=== PATIENT | female | born 1980 | race Caucasian/White ===

== ENCOUNTER → 2016-03-15 | Outpatient (CLI) | payer OTHER ==
[2016-03-15 10:35] LABS: CH 29.8; CHCM 32.6; HCT 38.7 % (34.0-46.0); HGB 12.4 gm/dL (11.4-16.0); MCH 29.6 pg (25.0-35.0); MCHC 32.1 g/dL (31.0-37.0); Mean Platelet Volume 8.8; RDW 12.9 % (11.5-15.5); WBC 8.6 k/uL (3.8-10.6)
[2016-03-15 12:09] LABS: Anion Gap 11 mmol/L; Blood Urea Nitrogen 12 mg/dL (7-17); Carbon Dioxide 27 mmol/L (22-30); Chloride 102 mmol/L (98-107); Lithium 0.5 mmol/L; Non-African American GFR(MDRD) >60 (>60 ml/min/1.73 sqM); Potassium 4.6 mmol/L (3.5-5.1); Sodium 140 mmol/L (137-145)
== END | disposition home or self-care (01) ==
LOC: LABWHC1 09:38
PROVIDERS: ATTEND Psychiatry & Neurology Psychiatry
DX: F31.9 Bipolar disorder, unspecified (principal)
CPT/HCPCS: 36415; 80051; 80178; 82565; 84443; 84520; 85027

== ENCOUNTER 2016-05-27 14:58 | Emergency (ER) | payer OTHER ==
[2016-05-27 15:03] VITALS: RESP 16
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
[2016-05-27] MEDS ORDERED: HYDROcodone/APAP 5-325MG 1 EACH TAB PO STA (16:02)
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
--- NOTE | 2016-05-27 16:34 | XR ---
EXAMINATION TYPE: XR hand complete LT DATE OF EXAM: 05/27/2016 4:24 PM COMPARISON: NONE HISTORY: Pain TECHNIQUE: 3 views FINDINGS: I see no fracture nor dislocation. Metacarpals are intact. Joint spaces are normal. IMPRESSION: Negative left hand exam.
--- NOTE | 2016-05-27 16:35 | XR ---
EXAMINATION TYPE: XR wrist complete LT DATE OF EXAM: 05/27/2016 4:24 PM COMPARISON: NONE HISTORY: Wrist pain TECHNIQUE: 3 views FINDINGS: I see no fracture nor dislocation. Joint spaces are normal. There are no pathologic calcifi cations. IMPRESSION: Negative left wrist exam.
[2016-05-27 17:09] VITALS: BP 129/85; PULSE 99; TEMP 990
== END 2016-05-27 17:07 | disposition home or self-care (01) ==
LOC: EC 14:58
DX: S60.212A Contusion of left wrist, initial encounter (principal); M54.2 Cervicalgia; V89.2XXA Person injured in unspecified motor-vehicle accident, traffic, initial encounter; G40.909 Epilepsy, unspecified, not intractable, without status epilepticus; I34.1 Nonrheumatic mitral (valve) prolapse; F32.9 Major depressive disorder, single episode, unspecified; F41.9 Anxiety disorder, unspecified; F17.210 Nicotine dependence, cigarettes, uncomplicated; Z88.8 Allergy status to other drugs, medicaments and biological substances; Z79.899 Other long term (current) drug therapy
CPT/HCPCS: 72125; 99285

== ENCOUNTER 2016-05-30 16:17 | Emergency (ER) | payer OTHER ==
[2016-05-30 17:09] VITALS: BP 110/68; PULSE 106; RESP 18; TEMP 99.8
[2016-05-30] MEDS ORDERED: ORPHENADRINE 30 MG/ML 2 ML VIAL IM STA (17:47)
[2016-05-30] MEDS ORDERED: KETOROLAC 60 MG/2 ML VIAL IM STA (17:47)
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
== END 2016-05-30 18:04 | disposition home or self-care (01) ==
LOC: EC 16:17
DX: S16.1XXD Strain of muscle, fascia and tendon at neck level, subsequent encounter (principal); F17.200 Nicotine dependence, unspecified, uncomplicated; F41.9 Anxiety disorder, unspecified; F32.9 Major depressive disorder, single episode, unspecified; Z79.899 Other long term (current) drug therapy; Z88.6 Allergy status to analgesic agent; Z88.8 Allergy status to other drugs, medicaments and biological substances; M79.601 Pain in right arm; V89.2XXD Person injured in unspecified motor-vehicle accident, traffic, subsequent encounter
CPT/HCPCS: 99283; 96372 ×2; J2360; J1885

== ENCOUNTER → 2016-06-06 | Outpatient (CLI) | payer OTHER ==
[2016-06-06 11:56] LABS: Hemoglobin A1C 4.8 % (4.2-6.1)
[2016-06-06 13:50] LABS: Lithium 0.6 mmol/L; Non-African American GFR(MDRD) >60 (>60 ml/min/1.73 sqM)
== END | disposition home or self-care (01) ==
LOC: LABWHC1 10:22
PROVIDERS: ATTEND Psychiatry & Neurology Psychiatry
DX: F33.2 Major depressive disorder, recurrent severe without psychotic features (principal)
CPT/HCPCS: 36415; 80178; 82565; 83036; 84443

== ENCOUNTER 2016-06-13 16:09 | Emergency (ER) | payer OTHER ==
[2016-06-13 16:43] VITALS: BP 118/69; PULSE 100; RESP 18; TEMP 98.7
[2016-06-13] MEDS ORDERED: ORPHENADRINE 30 MG/ML 2 ML VIAL IM STA (17:03)
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
== END 2016-06-13 17:13 | disposition home or self-care (01) ==
LOC: EC 16:09
DX: S16.1XXD Strain of muscle, fascia and tendon at neck level, subsequent encounter (principal); M25.511 Pain in right shoulder; G40.909 Epilepsy, unspecified, not intractable, without status epilepticus; F32.9 Major depressive disorder, single episode, unspecified; F41.9 Anxiety disorder, unspecified; F17.210 Nicotine dependence, cigarettes, uncomplicated; Z79.899 Other long term (current) drug therapy; Z88.6 Allergy status to analgesic agent; Z88.8 Allergy status to other drugs, medicaments and biological substances; V89.2XXD Person injured in unspecified motor-vehicle accident, traffic, subsequent encounter
CPT/HCPCS: 99283; 96372; J2360

== ENCOUNTER 2016-07-06 20:17 | Emergency (ER) | payer OTHER ==
[~2016-07-06 20:17] MED LIST: MAGNESIUM CITRATE 296 ML BOTTLE ONE
[2016-07-06] MEDS ORDERED: KETOROLAC 30 MG/ML 1 ML VIAL IVP STA (21:54)
[2016-07-06] MEDS ORDERED: ONDANSETRON 4 MG/2 ML VIAL IVP STA (21:54)
[2016-07-06] MEDS ORDERED: SODIUM CHLORIDE 0.9% 1,000 ML IV STA (21:54)
[2016-07-06 22:36] LABS: Basophils % (A) 1 %; CH 29.3; CHCM 33.3; Eosinophils # (A) 0.4 k/uL (0-0.7); Eosinophils % (A) 6 %; HCT 37.7 % (34.0-46.0); HDW 2.66; HGB 12.6 gm/dL (11.4-16.0); Luc # (Auto) 0.15; Luc % (Auto) 2; Lymphocytes # (A) 1.9 k/uL (1.0-4.8); Lymphocytes % (A) 29 %; MCH 29.6 pg (25.0-35.0); MCHC 33.5 g/dL (31.0-37.0); MCV 88.4 fL (80.0-100.0); Mean Platelet Volume 8.8; Monocytes # (A) 0.4 k/uL (0-1.0); Monocytes % (A) 6 %; Neutrophils # (A) 3.8 k/uL (1.3-7.7); Neutrophils % (A) 57 %; RBC 4.26 m/uL (3.80-5.40); RDW 14.1 % (11.5-15.5); WBC 6.7 k/uL (3.8-10.6); WBC (Perox) 6.76
[2016-07-06 22:48] LABS: ALT 30 U/L (9-52); AST 30 U/L (14-36); Alkaline Phosphatase 66 U/L (38-126); Amylase 72 U/L (30-110); Anion Gap 13 mmol/L; Blood Urea Nitrogen 10 mg/dL (7-17); Calcium 8.9 mg/dL (8.4-10.2); Carbon Dioxide 25 mmol/L (22-30); Chloride 103 mmol/L (98-107); Glucose 77 mg/dL (74-99); Non-African American GFR(MDRD) 50 (>60 ml/min/1.73 sqM); Potassium 3.6 mmol/L (3.5-5.1); Sodium 141 mmol/L (137-145); Total Bilirubin 0.5 mg/dL (0.2-1.3); Total Protein 7.8 g/dL (6.3-8.2)
--- NOTE | 2016-07-06 22:51 | XR ---
EXAM: XR Abdomen, 1 View CLINICAL HISTORY: Reason: abdominal pain TECHNIQUE: Frontal supine view of the abdomen/pelvis. COMPARISON: 08/07/15, 08/05/15 plain films. FINDINGS: Intraperitoneal space: No free air is identified. Gastrointestinal tract: The stomach is now more distended, containing air fluid and debris within. No grossly dilated small bowel loops are seen. There is again a moderate to large amount of colonic stool throughout, with air seen in the distal colon within the pelvis. Organs: Right upper quadrant clips again present suggesting cholecystectomy. Bones/joints: Bones stable including mild dextroscoliosis and mild offset at the symphysis pubis. IMPRESSION: 1. New findings of distended air and debris-filled stomach, nonspecific. 2. No definite evidence of small or large bowel obstruction seen, with moderate to large colonic stool burden again present. 3. The findings could be correlated and followed clinically to guide further imaging follow-up as clinically indicated.
[2016-07-06 23:07] LABS: Appearance,Urine Clear (Clear); Bilirubin,Urine Negative (Negative); Glucose,Urine (UA) Negative (Negative); Ketones,Urine Negative (Negative); Leukocyte Esterase,Urine Negative (Negative); Nitrite,Urine Negative (Negative); PH, Urine 5.5 (5.0-8.0); Protein,Urine Negative (Negative); Specific Gravity,Urine 1.007 (1.001-1.035); UA Billing (MACRO vs. MICRO) CHEM; Urobilinogen,Urine <2.0 mg/dL (<2.0)
[2016-07-06] MEDS ORDERED: MAGNESIUM CITRATE 296 ML BOTTLE PO ONE (23:42)
--- NOTE | 2016-07-06 23:44 | ED ---
Abdominal Pain HPI - General Chief Complaint: Abdominal Pain Stated Complaint: Abd Pain Time Seen by Provider: 07/06/16 21:53 Source: patient, RN notes reviewed, old records reviewed Mode of arrival: ambulatory Limitations: no limitations - History of Present Illness Initial Comments: This is a 35-year-old female well-known to the emergency department with chief complaint of abdominal distention and right flank pain. Patient reports that this is only been occurring for one day. She states she had a normal bowel movement in no vomiting. She denies any nausea. Patient states that she has no history of sick contacts. Denies any fever or chills chest pain or shortness of breath. Denies any dysuria or hematuria. - Related Data Home Medications Medication Instructions Recorded Confirmed DULoxetine HCL [Cymbalta] 30 mg PO HS 05/27/16 07/06/16 DULoxetine HCL [Cymbalta] 60 mg PO QAM 05/27/16 07/06/16 Levothyroxine Sodium [Synthroid] 50 mcg PO DAILY 05/27/16 07/06/16 [place] Carbonate 300 mg PO BID 05/27/16 07/06/16 Acetaminophen-Codeine 300-30mg 1 tab PO Q6H PRN 07/06/16 07/06/16 [Tylenol #3] OLANZapine [ZyPREXA] 7.5 mg PO HS 07/06/16 07/06/16 Allergies Allergy/AdvReac Type Severity Reaction Status Date / Time carbamazepine [From Tegretol] Allergy Rash/Hives Verified 07/06/16 22:27 divalproex sodium Allergy Swelling Verified 07/06/16 22:27 [From Depakote] niacin Allergy Rash/Hives Verified 07/06/16 22:27 nifedipine [From Procardia] Allergy RASH & Verified 07/06/16 22:27 SWELLING diphenhydramine HCl AdvReac MUSCLE Verified 07/06/16 22:27 [From Benadryl] CRAMPS gabapentin [From Neurontin] AdvReac MAKES HER Verified 07/06/16 22:27 FEEL DRUNK pregabalin [From Lyrica] AdvReac MAKES HER Verified 07/06/16 22:27 FEEL DRUNK tramadol HCl [From Ultram] AdvReac SEIZURES Verified 07/06/16 22:27 seizure meds Allergy Rash/Hives Uncoded 06/13/16 16:40 VITAMIN B COMPLEX Allergy Rash/Hives Uncoded 06/13/16 16:40 Review of Systems ROS Statement: Those systems with pertinent positive or pertinent negative responses have been documented in the HPI. ROS Other: All systems not noted in ROS Statement are negative. Past Medical History Past Medical History: Mitral Valve Prolapse (MVP), Seizure Disorder Additional Past Medical History / Comment(s): CHRONIC NECK AND SHOULDER PAIN, HX KIDNEY STONES, ABD HERNIA, NARCOLEPSY, HX SEIZURE X 1 2012, recent injury to tendon right thumb, endometriosis History of Any Multi-Drug Resistant Organisms: None Reported Past Surgical History: Section, Cholecystectomy, Tubal Ligation Additional Past Surgical History / Comment(s): TL X 2 Past Anesthesia/Blood Transfusion Reactions: No Reported Reaction Past Psychological History: Anxiety, Depression Additional Psychological History / Comment(s): NOT CURRENTLY TAKING ANY MEDS Smoking Status: Current some day smoker Past Alcohol Use History: Occasional Additional Past Alcohol Use History / Comment(s): STARTED SMOKING AT AGE 12-( 1992) SMOKES 4 CIGARETTES A DAY- SOME DAYS NONE Past Drug Use History: None Reported - Past Family History Father Additional Family Medical History / Comment(s): BACK PROBLEMS,DEPRESSION- COMMITED SUICIDE @ AGE 53 Mother Family Medical History: Osteoarthritis (OA) Additional Family Medical History / Comment(s): COLITIS General Exam - General Exam Comments Initial Comments: Pleasant 35-year-old female. No distress. Limitations: no limitations General appearance: alert, in no apparent distress Head exam: Present: atraumatic, normocephalic, normal inspection Eye exam: Present: normal appearance, PERRL, EOMI. Absent: scleral icterus, conjunctival injection, periorbital swelling ENT exam: Present: normal exam, mucous membranes moist Neck exam: Present: normal inspection. Absent: tenderness, meningismus, lymphadenopathy Respiratory exam: Present: normal lung sounds bilaterally. Absent: respiratory distress, wheezes, rales, rhonchi, stridor Cardiovascular Exam: Present: regular rate, normal rhythm, normal heart sounds. Absent: systolic murmur, diastolic murmur, rubs, gallop, clicks GI/Abdominal exam: Present: soft, distended (Abdomen is mildly distended.Focal tenderness.), normal bowel sounds. Absent: tenderness, guarding, rebound, rigid Extremities exam: Present: normal inspection, full ROM, normal capillary refill. Absent: tenderness, pedal edema, joint swelling, calf tenderness Back exam: Present: normal inspection Neurological exam: Present: alert, oriented X3, CN II-XII intact Psychiatric exam: Present: normal affect, normal mood Skin exam: Present: warm, dry, intact, normal color. Absent: rash Course Vital Signs 07/06/16 07/07/16 20:35 00:02 Temperature 98.6 F 98.2 F Pulse Rate 109 H 98 Respiratory 18 16 Rate Blood Pressure 108/55 93/55 O2 Sat by Pulse 98 99 Oximetry Medical Decision Making - Medical Decision Making 35-year-old female chief complaint of abdominal bloating and right flank pain for the past day. All lab work was reviewed as negative for any acute process. Patient states that she did have a bowel movement today that was normal. Denies any vomiting. Patient abdominal x-ray does shows an amount of colonic stool. Patient is offered an enema but she declined. Patient will be discharged with magnesium citrate instructed to stay home and to complete this. Patient agrees treatment plan will comply. Return parameters were discussed. Patient be diagnosed with constipation instructed reports of a high-fiber diet. - Lab Data Result diagrams: 07/06/16 22:25 07/06/16 22:25 Lab Results 07/06/16 07/06/16 07/06/16 Range/Units 22:25 22:25 22:50 WBC 6.7 (3.8-10.6) k/uL RBC 4.26 (3.80-5.40) m/uL Hgb 12.6 (11.4-16.0) gm/dL Hct 37.7 (34.0-46.0) % MCV 88.4 (80.0-100.0) fL MCH 29.6 (25.0-35.0) pg MCHC 33.5 (31.0-37.0) g/dL RDW 14.1 (11.5-15.5) % Plt Count 221 (150-450) k/uL Neutrophils % 57 % Lymphocytes % 29 % Monocytes % 6 % Eosinophils % 6 % Basophils % 1 % Neutrophils # 3.8 (1.3-7.7) k/uL Lymphocytes # 1.9 (1.0-4.8) k/uL Monocytes # 0.4 (0-1.0) k/uL Eosinophils # 0.4 (0-0.7) k/uL Basophils # 0.0 (0-0.2) k/uL Sodium 141 (137-145) mmol/L Potassium 3.6 (3.5-5.1) mmol/L Chloride 103 (98-107) mmol/L Carbon Dioxide 25 (22-30) mmol/L Anion Gap 13 mmol/L BUN 10 (7-17) mg/dL Creatinine 1.22 H (0.52-1.04) mg/dL Est GFR (MDRD) Af Amer >60 (>60 ml/min/1.73 sqM) Est GFR (MDRD) Non-Af 50 (>60 ml/min/1.73 sqM) Glucose 77 (74-99) mg/dL Calcium 8.9 (8.4-10.2) mg/dL Total Bilirubin 0.5 (0.2-1.3) mg/dL AST 30 (14-36) U/L ALT 30 (9-52) U/L Alkaline Phosphatase 66 (38-126) U/L Total Protein 7.8 (6.3-8.2) g/dL Albumin 4.6 (3.5-5.0) g/dL Amylase 72 (30-110) U/L Lipase 166 (23-300) U/L Urine Color Urine Appearance (Clear) Urine pH (5.0-8.0) Ur Specific [place] (1.001-1.035) Urine Protein (Negative) Urine Glucose (UA) (Negative) Urine Ketones (Negative) Urine Blood (Negative) Urine Nitrite (Negative) Urine Bilirubin (Negative) Urine Urobilinogen (<2.0) mg/dL Ur Leukocyte Esterase (Negative) Urine HCG, Qual Not Detected (Not Detectd) 07/06/16 Range/Units 22:50 WBC (3.8-10.6) k/uL RBC (3.80-5.40) m/uL Hgb (11.4-16.0) gm/dL Hct (34.0-46.0) % MCV (80.0-100.0) fL MCH (25.0-35.0) pg MCHC (31.0-37.0) g/dL RDW (11.5-15.5) % Plt Count (150-450) k/uL Neutrophils % % Lymphocytes % % Monocytes % % Eosinophils % % Basophils % % Neutrophils # (1.3-7.7) k/uL Lymphocytes # (1.0-4.8) k/uL Monocytes # (0-1.0) k/uL Eosinophils # (0-0.7) k/uL Basophils # (0-0.2) k/uL Sodium (137-145) mmol/L Potassium (3.5-5.1) mmol/L Chloride (98-107) mmol/L Carbon Dioxide (22-30) mmol/L Anion Gap mmol/L BUN (7-17) mg/dL Creatinine (0.52-1.04) mg/dL Est GFR (MDRD) Af Amer (>60 ml/min/1.73 sqM) Est GFR (MDRD) Non-Af (>60 ml/min/1.73 sqM) Glucose (74-99) mg/dL Calcium (8.4-10.2) mg/dL Total Bilirubin (0.2-1.3) mg/dL AST (14-36) U/L ALT (9-52) U/L Alkaline Phosphatase (38-126) U/L Total Protein (6.3-8.2) g/dL Albumin (3.5-5.0) g/dL Amylase (30-110) U/L Lipase (23-300) U/L Urine Color Light Yellow Urine Appearance Clear (Clear) Urine pH 5.5 (5.0-8.0) Ur Specific Perry 1.007 (1.001-1.035) Urine Protein Negative (Negative) Urine Glucose (UA) Negative (Negative) Urine Ketones Negative (Negative) Urine Blood Negative (Negative) Urine Nitrite Negative (Negative) Urine Bilirubin Negative (Negative) Urine Urobilinogen <2.0 (<2.0) mg/dL Ur Leukocyte Esterase Negative (Negative) Urine HCG, Qual (Not Detectd) - Radiology Data Radiology results: report reviewed KUB x-ray shows a moderate to large amount of colonic stool. No evidence of free air. Disposition Clinical Impression: Constipation Disposition: HOME SELF-CARE Condition: Good Instructions: Constipation (ED), High Fiber Diet (ED) Additional Instructions: Patient is advised to complete magnesium citrate while at home. Continue to increase fiber in the diet. Return to the emergency department if any alarming signs or symptoms occur. Referrals: Charles Fried Jr, [Primary Care Provider] - 1-2 days Time of Disposition: 23:43
[2016-07-07 00:05] VITALS: BP 93/55; PULSE 98; RESP 16; TEMP 98.2
== END 2016-07-07 00:05 | disposition home or self-care (01) ==
LOC: EC 20:17
DX: K59.00 Constipation, unspecified (principal); F32.9 Major depressive disorder, single episode, unspecified; F41.9 Anxiety disorder, unspecified; F17.210 Nicotine dependence, cigarettes, uncomplicated; Z90.49 Acquired absence of other specified parts of digestive tract; Z87.442 Personal history of urinary calculi; Z88.5 Allergy status to narcotic agent; Z88.8 Allergy status to other drugs, medicaments and biological substances; Z79.899 Other long term (current) drug therapy
CPT/HCPCS: 99284; 96374; 96375; 96361; 36415; 80053; 82150; 83690; 85025; 81003; 81025; 74000; J2405; J1885

== ENCOUNTER → 2016-07-20 | Outpatient (CLI) | payer OTHER ==
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
== END | disposition home or self-care (01) ==
LOC: RADCTMAIN 19:11
PROVIDERS: ATTEND Family Medicine
DX: M43.8X2 Other specified deforming dorsopathies, cervical region (principal); M25.511 Pain in right shoulder; Z88.6 Allergy status to analgesic agent; Z88.8 Allergy status to other drugs, medicaments and biological substances
CPT/HCPCS: 72125

== ENCOUNTER → 2016-10-09 | Outpatient (CLI) | payer OTHER ==
--- NOTE | 2016-10-09 17:53 | ECHOF ---
Referral Reason:I34.1 History of Mitral valve prolopse MEASUREMENTS -------- HEIGHT: 175.3 cm WEIGHT: 81.6 kg BP: RVIDd: 2.6 cm (< 3.3) IVSd: 0.9 cm (0.6 - 1.1) LVIDd: 3.9 cm (3.9 - 5.3) LVPWd: 0.8 cm (0.6 - 1.1) IVSs: 1.1 cm LVIDs: 3.4 cm LVPWs: 1.0 cm LA Diam: 2.5 cm (2.7 - 3.8) LAESV Index (A-L): 22.93 ml/m Ao Diam: 2.7 cm (2.0 - 3.7) AV Cusp: 1.7 cm (1.5 - 2.6) LA Diam: 3.0 cm (2.7 - 3.8) MV EXCURSION: 18.048 mm (> 18.000) MV EF SLOPE: 72 mm/s (70 - 150) EPSS: 0.3 cm MV E Tim: 0.48 m/s MV DecT: 252 ms MV A Tim: 0.69 m/s MV E/A Ratio: 0.70 RAP: 5.00 mmHg RVSP: 14.45 mmHg FINDINGS -------- Sinus rhythm. This was a technically adequate study. LV size, wall thickness and systolic function are normal, with an EF greater than 55%. The right ventricle is normal in size. Normal LA size by volume 22+/-6 ml/m2. The right atrial size is normal. The aortic valve is trileaflet, and appears structurally normal. No aortic stenosis or regurgitation. Mild mitral regurgitation is present. Mild tricuspid regurgitation present. There is no evidence of pulmonary hypertension. The right ventricular systolic pressure, as measured by Doppler, is 14.45mmHg. Trace/mild (physiologic) pulmonic regurgitation. The aortic root size is normal. There is no pericardial effusion. CONCLUSIONS -------- 1. LV size, wall thickness and systolic function are normal, with an EF greater than 55%. 2. Mild mitral regurgitation is present. 3. Mild tricuspid regurgitation present. 4. There is no evidence of pulmonary hypertension. 5. The right ventricular systolic pressure, as measured by Doppler, is 14.45mmHg. 6. Trace/mild (physiologic) pulmonic regurgitation. 7. There is no pericardial effusion. BONSAI TENDER: Rae Salas RDCS
== END | disposition home or self-care (01) ==
LOC: RADECHMAIN 14:57
PROVIDERS: ATTEND Family Medicine
DX: I08.1 Rheumatic disorders of both mitral and tricuspid valves (principal); Z88.6 Allergy status to analgesic agent; Z88.8 Allergy status to other drugs, medicaments and biological substances
CPT/HCPCS: 93306

== ENCOUNTER 2016-10-13 19:08 | Observation (INO) | payer OTHER ==
[2016-10-13] MEDS ORDERED: SODIUM BICARB 8.4% 50 ML SYR (1 MEQ/ML) IV ONE (20:15)
[2016-10-13 20:25] LABS: Basophils % (A) 0 %; CH 29.8; CHCM 32.9; Eosinophils # (A) 0.2 k/uL (0-0.7); Eosinophils % (A) 2 %; HCT 39.1 % (34.0-46.0); HDW 2.49; HGB 12.4 gm/dL (11.4-16.0); Luc # (Auto) 0.09; Luc % (Auto) 1; Lymphocytes # (A) 1.3 k/uL (1.0-4.8); Lymphocytes % (A) 15 %; MCH 28.9 pg (25.0-35.0); MCHC 31.7 g/dL (31.0-37.0); MCV 91.1 fL (80.0-100.0); Mean Platelet Volume 8.8; Monocytes # (A) 0.4 k/uL (0-1.0); Monocytes % (A) 4 %; Neutrophils % (A) 77 %; RBC 4.29 m/uL (3.80-5.40); RDW 14.5 % (11.5-15.5); WBC (Perox) 9.21
--- NOTE | 2016-10-13 20:28 | ED ---
General Adult HPI - General Chief complaint: Seizure Stated complaint: poss seizure Time Seen by Provider: 10/13/16 19:26 Source: EMS Mode of arrival: EMS Limitations: no limitations - History of Present Illness Initial comments: Patient presents with a chief complaint of seizures. This was witnessed at home by her cousin. The cousin states that the seizure lasted about 3 minutes. He states the patient had rhythmic shaking, and was drooling. There is no loss of bowel, bladder, or tongue biting. Patient has had one seizure in the past this was 6 years ago. Patient admits to taking 12 50 mg tramadol tablets today. When asked if this was a suicide attempt, the patient is hesitant and then answers no. Patient states that she took it because of neck pain. The prescription was not hers, it was her cousins. Currently patient states that she is having a mild headache and has no other complaints. Patient has a history of depression, previous suicide attempts. - Related Data Home Medications Medication Instructions Recorded Confirmed DULoxetine HCL [Cymbalta] 30 mg PO HS 05/27/16 10/13/16 DULoxetine HCL [Cymbalta] 60 mg PO QAM 05/27/16 10/13/16 Levothyroxine Sodium [Synthroid] 50 mcg PO DAILY 05/27/16 10/13/16 [place] Carbonate 300 mg PO BID 05/27/16 10/13/16 OLANZapine [ZyPREXA] 7.5 mg PO HS 07/06/16 10/13/16 Allergies Allergy/AdvReac Type Severity Reaction Status Date / Time carbamazepine [From Tegretol] Allergy Rash/Hives Verified 10/13/16 20:13 divalproex sodium Allergy Swelling Verified 10/13/16 20:13 [From Depakote] niacin Allergy Rash/Hives Verified 10/13/16 20:13 nifedipine [From Procardia] Allergy RASH & Verified 10/13/16 20:13 SWELLING diphenhydramine HCl AdvReac MUSCLE Verified 10/13/16 20:13 [From Benadryl] CRAMPS gabapentin [From Neurontin] AdvReac MAKES HER Verified 10/13/16 20:13 FEEL DRUNK pregabalin [From Lyrica] AdvReac MAKES HER Verified 10/13/16 20:13 FEEL DRUNK tramadol HCl [From Ultram] AdvReac SEIZURES Verified 10/13/16 20:13 seizure meds Allergy Rash/Hives Uncoded 06/13/16 16:40 VITAMIN B COMPLEX Allergy Rash/Hives Uncoded 06/13/16 16:40 Review of Systems ROS Statement: Those systems with pertinent positive or pertinent negative responses have been documented in the HPI. ROS Other: All systems not noted in ROS Statement are negative. Constitutional: Denies: fever, chills Eyes: Denies: vision change ENT: Denies: ear pain, throat pain Respiratory: Denies: cough, dyspnea Cardiovascular: Denies: chest pain Endocrine: Denies: fatigue Gastrointestinal: Denies: abdominal pain, nausea, vomiting Genitourinary: Denies: dysuria Musculoskeletal: Denies: back pain Skin: Denies: rash Neurological: Denies: headache Psychiatric: Reports: depression Past Medical History Past Medical History: Mitral Valve Prolapse (MVP), Seizure Disorder Additional Past Medical History / Comment(s): CHRONIC NECK AND SHOULDER PAIN, HX KIDNEY STONES, ABD HERNIA, NARCOLEPSY, HX SEIZURE X 1 2012, recent injury to tendon right thumb, endometriosis History of Any Multi-Drug Resistant Organisms: None Reported Past Surgical History: Section, Cholecystectomy, Tubal Ligation Additional Past Surgical History / Comment(s): TL X 2 Past Anesthesia/Blood Transfusion Reactions: No Reported Reaction Past Psychological History: Anxiety, Depression Smoking Status: Current some day smoker Past Alcohol Use History: Occasional Past Drug Use History: None Reported - Past Family History Father Additional Family Medical History / Comment(s): BACK PROBLEMS,DEPRESSION- COMMITED SUICIDE @ AGE 53 Mother Family Medical History: Osteoarthritis (OA) Additional Family Medical History / Comment(s): COLITIS General Exam Limitations: no limitations General appearance: alert, in no apparent distress Head exam: Present: atraumatic, normocephalic Eye exam: Present: normal appearance, PERRL ENT exam: Present: normal exam, normal oropharynx, mucous membranes moist Neck exam: Present: normal inspection Respiratory exam: Present: normal lung sounds bilaterally. Absent: respiratory distress, decreased breath sounds Cardiovascular Exam: Present: normal rhythm, tachycardia, normal heart sounds GI/Abdominal exam: Present: soft. Absent: distended, tenderness Rectal exam: Present: deferred Extremities exam: Present: normal inspection Back exam: Present: normal inspection Neurological exam: Present: alert, oriented X3, CN II-XII intact Psychiatric exam: Present: depressed, flat affect Skin exam: Present: warm, dry, intact Course Vital Signs 10/13/16 10/13/16 19:14 20:39 Temperature 98.8 F Pulse Rate 118 H 101 H Respiratory 18 16 Rate Blood Pressure 134/83 130/84 O2 Sat by Pulse 99 99 Oximetry Medical Decision Making - Medical Decision Making Patient presents with a chief complaint of seizures. History reveals the patient took 12 tablets of 50 mg tramadol today prior to having a seizure. Patient is hesitant when asked if she is suicidal. She has a history of suicide attempts, and hospitalizations for depression. Patient states she is having increased stress in her life currently because of relations with her children's father. EKG shows sinus tachycardia with what appears to be biatrial enlargement and QTc is prolonged at 520 ms. Other segments appear to be within normal limits. Poison control was contacted, they are recommending a period of 8 hours observation, and sodium bicarb for QTc segment. Patient will be evaluated by mental health, will likely need to admit patient for further observation. 9:49 PM Level evaluation of this patient is unremarkable. Repeat EKG after 1 amp bicarb shows improvement of the QT segment from 520 ms a 508. she will be started on bicarb drip and admitted to the floor. I spoke with Dr. Sherman who accepted admission of this patient with consult psychiatry. Psychiatry will see this patient in the morning. - Lab Data Result diagrams: 10/13/16 20:08 10/13/16 20:08 Lab Results 10/13/16 10/13/16 10/13/16 Range/Units 20:08 20:08 20:08 WBC 9.0 (3.8-10.6) k/uL RBC 4.29 (3.80-5.40) m/uL Hgb 12.4 (11.4-16.0) gm/dL Hct 39.1 (34.0-46.0) % MCV 91.1 (80.0-100.0) fL MCH 28.9 (25.0-35.0) pg MCHC 31.7 (31.0-37.0) g/dL RDW 14.5 (11.5-15.5) % Plt Count 201 (150-450) k/uL Neutrophils % 77 % Lymphocytes % 15 % Monocytes % 4 % Eosinophils % 2 % Basophils % 0 % Neutrophils # 7.0 (1.3-7.7) k/uL Lymphocytes # 1.3 (1.0-4.8) k/uL Monocytes # 0.4 (0-1.0) k/uL Eosinophils # 0.2 (0-0.7) k/uL Basophils # 0.0 (0-0.2) k/uL Sodium 140 (137-145) mmol/L Potassium 4.0 (3.5-5.1) mmol/L Chloride 104 (98-107) mmol/L Carbon Dioxide 26 (22-30) mmol/L Anion Gap 10 mmol/L BUN 9 (7-17) mg/dL Creatinine 0.80 (0.52-1.04) mg/dL Est GFR (MDRD) Af Amer >60 (>60 ml/min/1.73 sqM) Est GFR (MDRD) Non-Af >60 (>60 ml/min/1.73 sqM) Glucose 82 (74-99) mg/dL Plasma Lactic Acid Romeo 1.3 (0.7-2.0) mmol/L Calcium 9.1 (8.4-10.2) mg/dL Magnesium (1.6-2.3) mg/dL Total Bilirubin 0.4 (0.2-1.3) mg/dL AST 30 (14-36) U/L ALT 35 (9-52) U/L Alkaline Phosphatase 89 (38-126) U/L Creatine Kinase (30-135) U/L Total Protein 7.1 (6.3-8.2) g/dL Albumin 4.3 (3.5-5.0) g/dL Salicylates <1.0 mg/dL Acetaminophen <10.0 ug/mL Serum Alcohol <10 mg/dL 10/13/16 Range/Units 20:08 WBC (3.8-10.6) k/uL RBC (3.80-5.40) m/uL Hgb (11.4-16.0) gm/dL Hct (34.0-46.0) % MCV (80.0-100.0) fL MCH (25.0-35.0) pg MCHC (31.0-37.0) g/dL RDW (11.5-15.5) % Plt Count (150-450) k/uL Neutrophils % % Lymphocytes % % Monocytes % % Eosinophils % % Basophils % % Neutrophils # (1.3-7.7) k/uL Lymphocytes # (1.0-4.8) k/uL Monocytes # (0-1.0) k/uL Eosinophils # (0-0.7) k/uL Basophils # (0-0.2) k/uL Sodium (137-145) mmol/L Potassium (3.5-5.1) mmol/L Chloride (98-107) mmol/L Carbon Dioxide (22-30) mmol/L Anion Gap mmol/L BUN (7-17) mg/dL Creatinine (0.52-1.04) mg/dL Est GFR (MDRD) Af Amer (>60 ml/min/1.73 sqM) Est GFR (MDRD) Non-Af (>60 ml/min/1.73 sqM) Glucose (74-99) mg/dL Plasma Lactic Acid Romeo (0.7-2.0) mmol/L Calcium (8.4-10.2) mg/dL Magnesium 2.2 (1.6-2.3) mg/dL Total Bilirubin (0.2-1.3) mg/dL AST (14-36) U/L ALT (9-52) U/L Alkaline Phosphatase (38-126) U/L Creatine Kinase 85 (30-135) U/L Total Protein (6.3-8.2) g/dL Albumin (3.5-5.0) g/dL Salicylates mg/dL Acetaminophen ug/mL Serum Alcohol mg/dL Disposition Clinical Impression: Drug overdose, intentional, Seizure, Prolonged QT interval, Depression Disposition: ADMITTED IP TO THIS HOSP Condition: Fair Referrals: Charles Fried Jr, DO [Primary Care Provider] - 1-2 days Decision to Admit Reason: Admit from EC - Out of Hospital Transfer - Req. Specs Out of Hospital Transfer - Requested Specifics: Telemetry Unit
[2016-10-13 20:42] LABS: ALT 35 U/L (9-52); AST 30 U/L (14-36); Acetaminophen <10.0 ug/mL; Alcohol <10 mg/dL; Alkaline Phosphatase 89 U/L (38-126); Anion Gap 10 mmol/L; Blood Urea Nitrogen 9 mg/dL (7-17); Calcium 9.1 mg/dL (8.4-10.2); Carbon Dioxide 26 mmol/L (22-30); Chloride 104 mmol/L (98-107); Glucose 82 mg/dL (74-99); Non-African American GFR(MDRD) >60 (>60 ml/min/1.73 sqM); Salicylate <1.0 mg/dL; Sodium 140 mmol/L (137-145); Total Bilirubin 0.4 mg/dL (0.2-1.3); Total Protein 7.1 g/dL (6.3-8.2)
[2016-10-13] MEDS ORDERED: SODIUM CHLORIDE 0.9% 1,000 ML IV ONE (20:49)
[2016-10-13 20:53] LABS: Magnesium 2.2 mg/dL (1.6-2.3)
[2016-10-13] MEDS ORDERED: NALOXONE 0.4 MG/ML 1 ML VIAL IV PRN (21:52)
[2016-10-13 22:01] LABS: Appearance,Urine Cloudy (Clear); Bilirubin,Urine Negative (Negative); Glucose,Urine (UA) Negative (Negative); Ketones,Urine Negative (Negative); Leukocyte Esterase,Urine Negative (Negative); Mucus,Urine Rare /hpf; Nitrite,Urine Negative (Negative); PH, Urine 7.5 (5.0-8.0); Particle Count 2965; Protein,Urine Trace (Negative); RBC,Urine <1 /hpf (0-5); Specific Gravity,Urine 1.014 (1.001-1.035); Squamous Epithelial Cell,Urine 6 /hpf (0-4); UA Billing (MACRO vs. MICRO) MICRO; Urobilinogen,Urine <2.0 mg/dL (<2.0); WBC,Urine 3 /hpf (0-5)
[2016-10-13] MEDS ORDERED: DEXTROSE 5% IN WATER 1,000 ML with SODIUM BICARB (1 MEQ/ML) 150 ML IV ONE (22:30)
[2016-10-13] MEDS ORDERED: LORazepam 0.5 MG TAB PO SCH (23:15)
[2016-10-14 00:04] VITALS: BMI 26.5
[2016-10-14] MEDS ORDERED: LEVOTHYROXINE 50 MCG TAB PO SCH (06:30)
[2016-10-14 06:48] LABS: Basophils % (A) 0 %; CH 29.7; CHCM 32.3; Eosinophils # (A) 0.2 k/uL (0-0.7); Eosinophils % (A) 3 %; HCT 36.6 % (34.0-46.0); HDW 2.45; HGB 11.5 gm/dL (11.4-16.0); Luc # (Auto) 0.11; Luc % (Auto) 2; Lymphocytes # (A) 1.7 k/uL (1.0-4.8); Lymphocytes % (A) 25 %; MCH 28.9 pg (25.0-35.0); MCHC 31.3 g/dL (31.0-37.0); MCV 92.4 fL (80.0-100.0); Monocytes # (A) 0.4 k/uL (0-1.0); Monocytes % (A) 6 %; Neutrophils # (A) 4.2 k/uL (1.3-7.7); Neutrophils % (A) 64 %; RBC 3.96 m/uL (3.80-5.40); RDW 14.4 % (11.5-15.5); WBC 6.6 k/uL (3.8-10.6); WBC (Perox) 6.55
[2016-10-14 07:04] LABS: Anion Gap 5 mmol/L; Blood Urea Nitrogen 8 mg/dL (7-17); Calcium 8.3 mg/dL (8.4-10.2); Carbon Dioxide 30 mmol/L (22-30); Chloride 103 mmol/L (98-107); Glucose 84 mg/dL (74-99); Non-African American GFR(MDRD) >60 (>60 ml/min/1.73 sqM); Potassium 3.9 mmol/L (3.5-5.1); Sodium 138 mmol/L (137-145)
--- NOTE | 2016-10-14 08:54 | P.HPIM ---
History of Present Illness H&P Date: 10/14/16 Chief Complaint: overdose This is a pleasant 36-year-old white female presented to ER with a chief complaint of seizures. This was witnessed at home by her cousin. The cousin states that the seizure lasted about 3 minutes. He states the patient had rhythmic shaking, and was drooling. There is no loss of bowel, bladder, or tongue biting. Patient has had one seizure in the past this was 6 years ago. Patient admits to taking 12 50 mg tramadol tablets and 2 adderall, all belonging to her Cousin. She now states she was trying to hurt herself, after denying this in the emergency room. She states she's been hospitalized before [facility] the [facility] for similar. She had a QT prolongation on EKG originally. This is now resolved. She is resting comfortably with seizure precautions. She denies any chest pains, pressures, shortness of breath, nausea, vomiting, abdominal pain. Review of Systems All systems: negative Past Medical History Past Medical History: Mitral Valve Prolapse (MVP), Seizure Disorder Additional Past Medical History / Comment(s): CHRONIC NECK AND SHOULDER PAIN, HX KIDNEY STONES, ABD HERNIA, NARCOLEPSY, HX SEIZURE X 1 2012, recent injury to tendon right thumb, endometriosis History of Any Multi-Drug Resistant Organisms: None Reported Past Surgical History: Section, Cholecystectomy, Tubal Ligation Additional Past Surgical History / Comment(s): TL X 2 Past Anesthesia/Blood Transfusion Reactions: No Reported Reaction Past Psychological History: Anxiety, Depression Smoking Status: Current some day smoker Past Alcohol Use History: Occasional Additional Past Alcohol Use History / Comment(s): STARTED SMOKING AT AGE 12-( 1992) SMOKES 4 CIGARETTES A DAY- SOME DAYS NONE Past Drug Use History: None Reported - Past Family History Father Additional Family Medical History / Comment(s): BACK PROBLEMS,DEPRESSION- COMMITED SUICIDE @ AGE 53 Mother Family Medical History: Osteoarthritis (OA) Additional Family Medical History / Comment(s): COLITIS Medications and Allergies Home Medications Medication Instructions Recorded Confirmed Type DULoxetine HCL [Cymbalta] 30 mg PO HS 05/27/16 10/13/16 History DULoxetine HCL [Cymbalta] 60 mg PO QAM 05/27/16 10/13/16 History Levothyroxine Sodium [Synthroid] 50 mcg PO DAILY 05/27/16 10/13/16 History [place] Carbonate 300 mg PO BID 05/27/16 10/13/16 History OLANZapine [ZyPREXA] 7.5 mg PO HS 07/06/16 10/13/16 History Allergies Allergy/AdvReac Type Severity Reaction Status Date / Time carbamazepine [From Tegretol] Allergy Rash/Hives Verified 10/13/16 20:13 divalproex sodium Allergy Swelling Verified 10/13/16 20:13 [From Depakote] niacin Allergy Rash/Hives Verified 10/13/16 20:13 nifedipine [From Procardia] Allergy RASH & Verified 10/13/16 20:13 SWELLING diphenhydramine HCl AdvReac MUSCLE Verified 10/13/16 20:13 [From Benadryl] CRAMPS gabapentin [From Neurontin] AdvReac MAKES HER Verified 10/13/16 20:13 FEEL DRUNK pregabalin [From Lyrica] AdvReac MAKES HER Verified 10/13/16 20:13 FEEL DRUNK tramadol HCl [From Ultram] AdvReac SEIZURES Verified 10/13/16 20:13 seizure meds Allergy Rash/Hives Uncoded 06/13/16 16:40 VITAMIN B COMPLEX Allergy Rash/Hives Uncoded 06/13/16 16:40 Physical Exam Vitals: Vital Signs Temp Pulse Pulse Resp BP BP Pulse Ox 10/14/16 08:00 97.2 F L 102 H 18 108/66 100 10/14/16 04:00 97.3 F L 94 18 104/74 100 10/13/16 23:46 98.9 F 101 H 18 115/82 100 10/13/16 23:29 100 16 128/83 98 10/13/16 22:17 99.1 F 94 16 129/80 100 10/13/16 21:57 98.3 F 104 H 16 129/80 100 10/13/16 20:39 101 H 16 130/84 99 10/13/16 19:14 98.8 F 118 H 18 134/83 99 Intake and Output 10/13/16 10/14/16 10/14/16 22:59 06:59 14:59 Other: Voiding Method Toilet Toilet # Voids 1 Weight 70.307 kg 81.6 kg GENERAL: Well-appearing, well-nourished and in no acute distress. HEAD: Atraumatic, normocephalic. EYES: Pupils equal round and reactive to light, extraocular movements intact, sclera anicteric, conjunctiva are normal. ENT:nares patent, oropharynx clear without exudates. Moist mucous membranes. NECK: Normal range of motion, supple without lymphadenopathy or JVD, no thyromegaly LUNGS: Breath sounds clear to auscultation bilaterally and equal. No wheezes rales or rhonchi. HEART: Regular rate and rhythm without murmurs, rubs or gallops.S1S2 Normal ABDOMEN: Soft, nontender, normoactive bowel sounds. No guarding, no rebound. No masses appreciated. EXTREMITIES: Normal range of motion, no pitting or edema. No clubbing or cyanosis. NEUROLOGICAL: Cranial nerves II through XII grossly intact. Normal speech, normal gait. PSYCH: Normal mood, normal affect. SKIN: Warm, Dry, normal turgor, no rashes or lesions noted. Results CBC & Chem 7: 10/14/16 06:12 10/14/16 06:12 Labs: Abnormal Lab Results - Last 24 Hours (Table) 10/13/16 10/14/16 Range/Units 21:47 06:12 Calcium 8.3 L (8.4-10.2) mg/dL Urine Appearance Cloudy H (Clear) Urine Protein Trace H (Negative) Ur Squamous Epith Cells 6 H (0-4) /hpf Urine Mucus Rare H (None) /hpf Ur Amphetamines Screen Detected H (NotDetected) Comments: EKG 3 were reviewed. It shows improvement of the QT prolongation. Thrombosis Risk Factor Assmnt - DVT/VTE Prophylaxis DVT/VTE Prophylaxis: Low risk, early ambulation encouraged - Choose All That Apply Any of the Below Risk Factors Present?: No Other Risk Factors: No Other congenital or acquired thrombophilia - If yes, enter type in comment: No Thrombosis Risk Factor Assessment Level: Very Low Risk Assessment and Plan Plan: Suicide attempt by overdose: She took 12 tramadol and to Adderall. She had QT prolongation was started on bicarbonate in ER. The QT prolongation is now resolved. Continue the bicarbonate. Advance her diet and weight on psych possible seizure disorder: As the seizure was induced by medication and she's not had one in 6+ years, most likely no further intervention is needed at this time. If She does have another one, I'll plan on neurologic consultation and start her on Dilantin Remain on seizure precautions at this time. Weight on psych evaluation. If accept her, she may go this afternoon
[2016-10-14] MEDS ORDERED: LITHIUM CARBONATE 300 MG CAP PO SCH (09:00)
[2016-10-14] MEDS ORDERED: DULoxetine HCL 60 MG CAPSULE.DR PO SCH (09:00)
[2016-10-14 11:43] VITALS: BP 111/73; PULSE 92; RESP 16; TEMP 97.1
[2016-10-14] MEDS ORDERED: IBUPROFEN 200 MG TAB PO PRN (16:21)
[2016-10-14] MEDS ORDERED: LORazepam 0.5 MG TAB PO ONE (16:30)
--- NOTE | 2016-10-14 19:09 | P.DS ---
Providers Date of admission: 10/13/16 21:52 Expected date of discharge: 10/14/16 Attending physician: Stefano Sherman Consults: 10/13/16 21:53 Consult Physician Routine Consulting Provider: Earnest Vigil Consult Reason/Comments: depression / overdose Do you want consulting provider notified?: Yes Primary care physician: [facility] Course: This is a pleasant 36-year-old white female presented to ER with a chief complaint of seizures. This was witnessed at home by her cousin. The cousin states that the seizure lasted about 3 minutes. He states the patient had rhythmic shaking, and was drooling. There is no loss of bowel, bladder, or tongue biting. Patient has had one seizure in the past this was 6 years ago. Patient admits to taking 12 50 mg tramadol tablets and 2 adderall, all belonging to her Cousin. She now states she was trying to hurt herself, after denying this in the emergency room. She states she's been hospitalized before [facility] the [facility] for similar. She had a QT prolongation on EKG originally. This is now resolved. She is resting comfortably with seizure precautions. She denies any chest pains, pressures, shortness of breath, nausea, vomiting, abdominal pain. 10/14/2016: she remained stab le during the day after admission. Psych recommended inpatient stay. She will be discharged there now. Final DX Prolonged QT syndrome, resolved Suicide Attempt via Overdose with Tramadol(12) / Adderall (2) Seizure Disorder with Breakthrough x 1 most likely from MEd overdose Hypothyroidism Biploar Disorder Patient Condition at Discharge: Fair Plan - Discharge Summary New Discharge Prescriptions: New DULoxetine HCL [Cymbalta] 60 mg PO QAM cap Ibuprofen [Advil] 200 mg PO Q6HR PRN tab PRN Reason: Pain Continue Levothyroxine Sodium [Synthroid] 50 mcg PO DAILY [place] Carbonate 300 mg PO BID DULoxetine HCL [Cymbalta] 60 mg PO QAM OLANZapine [ZyPREXA] 7.5 mg PO HS Discontinued DULoxetine HCL [Cymbalta] 30 mg PO HS Discharge Medication List DULoxetine HCL [Cymbalta] 60 mg PO QAM 05/27/16 [History] Levothyroxine Sodium [Synthroid] 50 mcg PO DAILY 05/27/16 [History] [place] Carbonate 300 mg PO BID 05/27/16 [History] OLANZapine [ZyPREXA] 7.5 mg PO HS 07/06/16 [History] DULoxetine HCL [Cymbalta] 60 mg PO QAM cap 10/14/16 [Rx] Ibuprofen [Advil] 200 mg PO Q6HR PRN tab 10/14/16 [Rx] Follow up Appointment(s)/Referral(s): Charles Fried Jr, [Primary Care Provider] - 1-2 days (Please make appointment when discharged from Inpatient mental Health) Discharge Disposition: TRANSFER TO PSYCH HOSP/UNIT
[2016-10-14] MEDS ORDERED: DULoxetine HCL 30 MG CAPSULE.DR PO SCH (21:00)
[2016-10-14] MEDS ORDERED: OLANZAPINE 7.5 MG PO SCH (21:00)
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
== END 2016-10-14 19:56 ==
LOC: EC 19:08 → 6SEL 21:52 → INTOOBSV 21:52
PROVIDERS: ADMIT Family Medicine; ATTEND Family Medicine
DX: T40.4X2A Poisoning by other synthetic narcotics, intentional self-harm, initial encounter (principal); F33.2 Major depressive disorder, recurrent severe without psychotic features; I45.81 Long QT syndrome; T43.622A Poisoning by amphetamines, intentional self-harm, initial encounter; E03.9 Hypothyroidism, unspecified; G47.419 Narcolepsy without cataplexy; F60.3 Borderline personality disorder; F41.9 Anxiety disorder, unspecified; G40.909 Epilepsy, unspecified, not intractable, without status epilepticus; I34.1 Nonrheumatic mitral (valve) prolapse; G89.29 Other chronic pain; M54.2 Cervicalgia; R51 Headache; M25.519 Pain in unspecified shoulder; F17.210 Nicotine dependence, cigarettes, uncomplicated; Z79.899 Other long term (current) drug therapy; Z87.442 Personal history of urinary calculi; Z90.49 Acquired absence of other specified parts of digestive tract; Z91.5 Personal history of self-harm; Z88.8 Allergy status to other drugs, medicaments and biological substances; Z81.8 Family history of other mental and behavioral disorders; Z88.5 Allergy status to narcotic agent
CPT/HCPCS: 96366 ×2; 96376; 96361; 96365; 99285; 36415; 93005; 80053; 80048; 82550; 83605; 80178; 83735; 85025 ×2; 81001; 80306; 83520 ×2; 80320; G0378 ×2

== ENCOUNTER 2016-10-14 18:09 | Inpatient (IN) | payer MEDICAID ==
[2016-10-14] MEDS ORDERED: MAG HYDROX/AL HYDROX/SIMETH 30 ML CUP PO PRN (18:30)
[2016-10-14] MEDS: DULoxetine HCL 30 MG CAPSULE.DR PO SCH (20:38)
[2016-10-14] MEDS: LORazepam 1 MG TAB PO PRN (20:41)
[2016-10-15] MEDS: LEVOTHYROXINE 50 MCG TAB PO SCH (05:53)
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
[2016-10-15] MEDS: LORazepam 1 MG TAB PO PRN ×2 (09:36→16:10)
[2016-10-15] MEDS: ACETAMINOPHEN TAB 325 MG TAB PO PRN (09:37)
[2016-10-15] MEDS: IBUPROFEN 400 MG TAB PO PRN (09:38)
[2016-10-15] MEDS: DULoxetine HCL 60 MG CAPSULE.DR PO SCH (09:39)
[2016-10-15] MEDS: NICOTINE 14MG/24HR PATCH TRANSDERM SCH (09:40)
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
[2016-10-15] MEDS: DULoxetine HCL 30 MG CAPSULE.DR PO SCH (20:26)
[2016-10-15] MEDS: LITHIUM CARBONATE 300 MG CAP PO SCH (20:26)
[2016-10-15] MEDS ORDERED: OLANZapine 2.5 MG TAB PO SCH (21:00)
[2016-10-16] MEDS: LEVOTHYROXINE 50 MCG TAB PO SCH (05:53)
[2016-10-16] MEDS: LITHIUM CARBONATE 300 MG CAP PO SCH ×3 (09:04→21:05)
[2016-10-16] MEDS: DULoxetine HCL 60 MG CAPSULE.DR PO SCH ×2 (09:04→21:04)
[2016-10-16] MEDS: LORazepam 1 MG TAB PO PRN ×2 (09:05→18:48)
[2016-10-16] MEDS: NICOTINE 14MG/24HR PATCH TRANSDERM SCH (10:42)
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
[2016-10-16] MEDS: OLANZapine 5 MG TAB PO SCH ×2 (17:45→21:05)
[2016-10-16] MEDS: DIPHENOX-ATROP 2.5-0.025 MG 1 EACH TAB PO PRN (18:49)
--- NOTE | 2016-10-16 22:46 | PN ---
DATE OF SERVICE: 10/16/2016 CHIEF COMPLAINT: The patient was admitted in transfer from the medical floor following stabilization from an overdose of 12 Tramadol tablets plus Adderall. She has had long-term emotional issues with increasing depression. INTERVAL HISTORY: Patient has been doing fair. She had a quiet evening last night. She slept about 5-1/2 hours. Today she has been up. She generally isolates herself. She did attend one group today, though has avoided attending other groups. She continues to feel quite down in her mood. She has had periods of being tearful. When I asked her how she understood her difficulties or what might be precipitants, she stated that she has trouble thinking clearly and coming up with responses to those kinds of questions. She was not able to give much insight into her situation. She has had some problems with loose stools. Otherwise she has not had change in her general health. She tolerates her psychotropic medications. MENTAL STATUS EXAM: Patient gave fair eye contact. Psychomotor activity was slowed. Speech was monotone. She answered questions with brief responses. Her affect was flat. She was somewhat tearful at times. Her mood was depressed. She was significantly distressed. ASSESSMENT AND PLAN: I will continue the current diagnosis and treatment plan. Will continue to make efforts to engage the patient in individual and group therapeutic activities. I had an extensive discussion with the patient regarding medication issues. She has been on Cymbalta 90 mg a day prior to coming into the hospital. It has been continued. I will increase her dose up to 60 mg twice a day, which would generally be considered the maximum therapeutic dose. It is unclear what the indication is for her lithium. I discussed that, since she has been on lithium prior to coming into the hospital, it would be reasonable to try to maximize lithium dosing. As such, I will increase her lithium to 600 mg in the morning, 900 mg in the evening. The patient currently in on Abilify 2 mg a day, which is a relatively low dose. She has significant anxiety. She also had flashbacks to post-traumatic issues. I will discuss Abilify and start the patient on Zyprexa 5 mg 3 times a day. The aim of Zyprexa is to help reduce physiologic stress response related to PTSD, anxiety and panic symptoms. In addition, I would look for Zyprexa to help augment her antidepressant. We will continue to focus on stabilization and discharge planning. [facility]
[2016-10-17] MEDS: LEVOTHYROXINE 50 MCG TAB PO SCH (09:17)
[2016-10-17] MEDS: DULoxetine HCL 60 MG CAPSULE.DR PO SCH ×2 (09:18→20:12)
[2016-10-17] MEDS: LITHIUM CARBONATE 300 MG CAP PO SCH ×3 (09:18→20:12)
[2016-10-17] MEDS: OLANZapine 5 MG TAB PO SCH ×3 (09:18→20:12)
[2016-10-17] MEDS: LORazepam 1 MG TAB PO PRN ×2 (09:18→20:13)
[2016-10-17] MEDS: NICOTINE 14MG/24HR PATCH TRANSDERM SCH (09:19)
[2016-10-17] MEDS: DIPHENOX-ATROP 2.5-0.025 MG 1 EACH TAB PO PRN (16:14)
[2016-10-18] MEDS: LEVOTHYROXINE 50 MCG TAB PO SCH (05:56)
[2016-10-18] MEDS: DULoxetine HCL 60 MG CAPSULE.DR PO SCH ×2 (10:04→21:49)
[2016-10-18] MEDS: NICOTINE 14MG/24HR PATCH TRANSDERM SCH (10:04)
[2016-10-18] MEDS: OLANZapine 5 MG TAB PO SCH ×3 (10:04→21:50)
[2016-10-18] MEDS: LORazepam 1 MG TAB PO PRN ×2 (10:05→19:25)
[2016-10-18] MEDS: LITHIUM CARBONATE 300 MG CAP PO SCH ×3 (10:05→21:49)
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
[2016-10-18] MEDS: DIPHENOX-ATROP 2.5-0.025 MG 1 EACH TAB PO PRN (16:13)
[2016-10-19] MEDS: LEVOTHYROXINE 50 MCG TAB PO SCH (05:46)
[2016-10-19] MEDS: NICOTINE 14MG/24HR PATCH TRANSDERM SCH (10:20)
[2016-10-19] MEDS: OLANZapine 5 MG TAB PO SCH (10:20)
[2016-10-19] MEDS: LITHIUM CARBONATE 300 MG CAP PO SCH ×3 (10:20→21:27)
[2016-10-19] MEDS: DULoxetine HCL 60 MG CAPSULE.DR PO SCH ×2 (10:20→21:25)
--- NOTE | 2016-10-19 10:40 | PN ---
DATE OF SERVICE: 10/18/2016 CHIEF COMPLAINT: The patient was admitted in transfer from the medical floor following stabilization from overdose of 12 tramadol tablets plus Adderall. 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 INTERVAL HISTORY: The patient has been doing fair. She had a quiet evening last night. She slept fairly well. Today, she has been up. She tends to keep to herself. She has not been attending groups. She says that overall her mood seems a little better. She has somewhat better outlook. She has made contact with her children, which she had not been doing on previous days. She says that she has been able to think over a lot of issues that have led up to her hospitalization and feels that she has been gaining some insight. She feels medications have been helping. She says that overall she feels less distressed today than she was yesterday. She has had a little better outlook. She was able to discuss some issues of discharge planning. She has not had change in her general health. She tolerates her psychotropic medications. MENTAL STATUS: The patient gave fair eye contact. Psychomotor activity was slowed. Speech was monotone. She answered questions with brief responses. Her thoughts were clear. Her affect was blunted. Her mood reserved. It was difficult to say if she was distressed. Overall she presented in a more calm manner compared to yesterday. ASSESSMENT AND PLAN: I will continue the current diagnosis and treatment plan. Her lithium level done this morning was 1.1 and will repeat a lithium level tomorrow. I will switch her Zyprexa so she takes 5 mg in the morning and 10 mg at bedtime. The aim would be to try to simplify her medications to decrease the number of times in the day she would take medications. She seems to be making progress. Will continue to focus on stabilization and discharge planning. I would aim to discharge the patient by the end of the week. DYLON
[2016-10-19] MEDS: LORazepam 1 MG TAB PO PRN ×2 (10:47→16:45)
--- NOTE | 2016-10-19 12:53 | PN ---
DATE OF SERVICE: 10/19/2016 CHIEF COMPLAINT: The patient was admitted in transfer from the medical floor following stabilization from overdose of 12 Tramadol tablets plus Adderall. She has had long-term emotional issues with increasing depression. INTERVAL HISTORY: Patient has been doing fair. She has made progress. She says her mood is improving. She is not as distressed and anxious as she head been earlier in her admission, she notes that it takes her some time to fall asleep because she has restless legs. She says she has had restless legs in the past when she has been on Zyprexa though noted that is seemed to settle down after a short period of time. We discussed the possibility of treating with an anticholinergic agent though she felt comfortable that what she was experiencing will pass fairly quickly. She has a little better outlook. She has been in touch with her children which is an issue for her as she has struggled, feeling that she has abandoned them being in the hospital. She has been reluctant to attend groups though, says today that she is willing to make an effort at getting to groups. She has not had change in her general health. She tolerates her psychotropic medications. MENTAL STATUS: Patient gave fair eye contact, psychomotor activity with slow speech was monotone. She answered questions with brief responses. Her thoughts were clear. Her affect was blunted. Her mood reserved. She did smile a little. She showed a little more emotional responsiveness than she has had been in previous context. She was not significantly distressed. ASSESSMENT: I will continue the current diagnosis and treatment plan. I will continue the psychotropic medications the same. We discussed discharged planning issues. We will aim to discharge the patient tomorrow. DYLON
[2016-10-19] MEDS: DIPHENOX-ATROP 2.5-0.025 MG 1 EACH TAB PO PRN (14:59)
[2016-10-19] MEDS ORDERED: OLANZapine 10 MG TAB PO SCH (21:00)
[2016-10-19] MEDS: IBUPROFEN 400 MG TAB PO PRN (21:27)
[2016-10-20] MEDS: ACETAMINOPHEN TAB 325 MG TAB PO PRN ×2 (00:26→22:19)
[2016-10-20] MEDS: IBUPROFEN 400 MG TAB PO PRN ×2 (02:50→22:20)
[2016-10-20] MEDS: LEVOTHYROXINE 50 MCG TAB PO SCH (06:21)
[2016-10-20] MEDS: DULoxetine HCL 60 MG CAPSULE.DR PO SCH ×2 (10:02→19:57)
[2016-10-20] MEDS: NICOTINE 14MG/24HR PATCH TRANSDERM SCH (10:02)
[2016-10-20] MEDS: OLANZapine 5 MG TAB PO SCH ×2 (10:03→19:57)
[2016-10-20] MEDS: LORazepam 1 MG TAB PO PRN ×2 (10:04→19:57)
[2016-10-20] MEDS: LITHIUM CARBONATE 300 MG CAP PO SCH ×2 (10:24→19:57)
[2016-10-20] MEDS ORDERED: LORazepam 1 MG TAB PO STA (13:34)
--- NOTE | 2016-10-20 15:43 | PN ---
DATE OF SERVICE: 10/20/2016 CHIEF COMPLAINT: The patient was admitted in transfer from the medical floor following stabilization from overdose of 12 Tramadol tablets plus Adderall. She has had long-term emotional issues and increasing depression. INTERVAL HISTORY: Patient has been doing fair. She continued to isolate. She attended one group yesterday; otherwise she stayed in her room much of the time. She will come out some and will interact a little. She continues to be down in her mood. Her big focus is feeling that she needs to be home for her children, and that is very distressing to her to be away. She has difficulty being able to focus on herself and to address her own emotional needs. She sleeps well at night. She will nap in the day. She has not had change in her general health. She tolerates her psychotropic medication. A family meeting was held today. Mother in particular was concerned about her level of depression. Apparently the boyfriend has some difficulty with communication, which may create some relationship issues. MENTAL STATUS: Patient was quite tearful after the family meeting. We set up a plan for possible discharge, though it was not possible to discharge the patient today, as she had hoped. She was very distressed about this. She says she has had a lot of anxiety. Her affect was intense, her mood reserved. She was moderately distressed. ASSESSMENT: Continue the current diagnosis and treatment plan. Her lithium level today is 1.9, up from 1.4. I will discontinue her lithium. The plan is to continue her hospitalization through the weekend. I will repeat a lithium level in the morning. I would look to restart a low dose of lithium on Sunday. We will set up another family meeting for Sunday. Will continue to focus on stabilization and discharge planning. [facility]ITAL[facility]hup[facility]
[2016-10-21] MEDS ORDERED: LORazepam 1 MG TAB PO STA
[2016-10-21] MEDS: NICOTINE 14MG/24HR PATCH TRANSDERM SCH ×2 (09:33→15:53)
[2016-10-21] MEDS: DULoxetine HCL 60 MG CAPSULE.DR PO SCH ×2 (09:33→20:52)
[2016-10-21] MEDS: OLANZapine 5 MG TAB PO SCH ×2 (09:33→20:52)
[2016-10-21] MEDS: LEVOTHYROXINE 50 MCG TAB PO SCH (09:33)
[2016-10-21] MEDS: LORazepam 1 MG TAB PO PRN ×2 (10:03→20:51)
[2016-10-21] MEDS ORDERED: ZIPRASIDONE 20 MG CAP PO STA (11:56)
[2016-10-21] MEDS ORDERED: ZIPRASIDONE 20 MG VIAL IM STA (12:13)
[2016-10-21] MEDS: IBUPROFEN 400 MG TAB PO PRN ×2 (14:35→23:46)
[2016-10-21] MEDS: BENZTROPINE MESYLATE 0.5 MG TAB PO PRN ×2 (16:05→23:05)
--- NOTE | 2016-10-21 16:07 | P.PN ---
Progress Note - Text Interval history: Patient reports having difficulties with anxiety. She states she's been feeling some muscle tension/cramp-like feelings it sounds like. She reports that earlier she was scratching on her arm with her fingernails because of anxiety. We did discuss Cogentin as needed. Ativan is also ordered as needed up to twice daily. [place] has been discontinued due to her lithium level being 1.9. Mental status exam: She is alert and cooperative with the interview. Her affect overall is restricted. Her mood she seems to describe some fluctuations. She does not verbalize any thoughts of harm to self or others. There is no evidence of any active psychosis. She does not display any agitation. She does not appear to be in any acute discomfort. I do not note any abnormal involuntary movements. Plan: We'll maintain current psychotropic medications. Earling has been discontinued. We'll recheck a lithium level. Cogentin has been ordered as needed. We'll continue to monitor her response to treatment monitor for any psychotropic medication side effects. We'll continue to cover for Dr. Vigil through the weekend.
[2016-10-22] MEDS: ACETAMINOPHEN TAB 325 MG TAB PO PRN ×2 (01:34→13:20)
[2016-10-22] MEDS: LORazepam 1 MG TAB PO PRN ×2 (02:44→14:37)
[2016-10-22] MEDS: NICOTINE 14MG/24HR PATCH TRANSDERM SCH (09:23)
[2016-10-22] MEDS: DULoxetine HCL 60 MG CAPSULE.DR PO SCH ×2 (09:23→20:04)
[2016-10-22] MEDS: LEVOTHYROXINE 50 MCG TAB PO SCH (09:23)
[2016-10-22] MEDS: OLANZapine 5 MG TAB PO SCH ×3 (09:24→20:04)
[2016-10-22] MEDS: IBUPROFEN 400 MG TAB PO PRN ×3 (10:42→20:59)
--- NOTE | 2016-10-22 15:39 | P.PN ---
Progress Note - Text Interval history: Patient seen in cross coverage today for Dr. Vigil. She reports that she didn't take the Zyprexa this morning because she was concerned about muscle stiffness/tension. She states that it seems to be better today after not taking the Zyprexa. She did take the Zyprexa last night and states she didn't sleep much at all. She says the Cogentin helped for the first time she took it yesterday but not the second time. Her mood she seems to describe as pretty good but describes her attention span is short. Mental status exam: She is alert and cooperative with the interview. Overall her affect is restricted. Her mood she described as pretty good she does not verbalize any thoughts of harm to self others no active evidence of psychosis at this time. She does not show any agitation. With the nursing staff present I did check her upper extremities there is no significant rigidity at her wrist or elbow. Plan: We'll maintain current psychotropic medications. She is encouraged to continue to trial the Zyprexa, she does have Cogentin ordered as needed. We discussed a possible strategy of the Zyprexa being weighted more to bedtime. She will discuss her medications further with Dr. Vigil tomorrow whom will be resuming her care.
[2016-10-22] MEDS: BENZTROPINE MESYLATE 0.5 MG TAB PO PRN (17:34)
[2016-10-22] MEDS: LITHIUM CARBONATE 300 MG CAP PO SCH (20:04)
[2016-10-23] MEDS: LORazepam 1 MG TAB PO PRN ×3 (00:49→15:57)
[2016-10-23] MEDS: ACETAMINOPHEN TAB 325 MG TAB PO PRN (02:14)
[2016-10-23] MEDS: LEVOTHYROXINE 50 MCG TAB PO SCH (09:56)
[2016-10-23] MEDS: DULoxetine HCL 60 MG CAPSULE.DR PO SCH ×2 (09:56→22:13)
[2016-10-23] MEDS: OLANZapine 5 MG TAB PO SCH (09:57)
[2016-10-23] MEDS: IBUPROFEN 400 MG TAB PO PRN (19:53)
[2016-10-23] MEDS: LITHIUM CARBONATE 300 MG CAP PO SCH (22:13)
[2016-10-23] MEDS: BENZTROPINE MESYLATE 1 MG TAB PO SCH (22:14)
[2016-10-24] MEDS: LORazepam 0.5 MG TAB PO PRN ×2 (00:02→11:57)
[2016-10-24] MEDS: LEVOTHYROXINE 50 MCG TAB PO SCH (05:55)
[2016-10-24] MEDS: NICOTINE 14MG/24HR PATCH TRANSDERM SCH (08:30)
[2016-10-24] MEDS: DULoxetine HCL 60 MG CAPSULE.DR PO SCH ×2 (08:30→20:55)
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
[2016-10-24] MEDS: BENZTROPINE MESYLATE 1 MG TAB PO SCH (20:55)
[2016-10-24] MEDS: LITHIUM CARBONATE 300 MG CAP PO SCH (20:55)
[2016-10-25] MEDS: LORazepam 0.5 MG TAB PO PRN ×2 (00:08→08:50)
[2016-10-25] MEDS: IBUPROFEN 400 MG TAB PO PRN (01:55)
[2016-10-25] MEDS: LEVOTHYROXINE 50 MCG TAB PO SCH (06:01)
--- NOTE | 2016-10-25 08:33 | PN ---
DATE OF SERVICE: 10/24/2016 CHIEF COMPLAINT: The patient was admitted in transfer from the medical floor following stabilization from overdose of 12 Tramadol tablets plus Adderall. 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 INTERVAL HISTORY: The patient has been doing fair. She had a quiet evening last night. She says she slept better last night. She maybe had some mild cramping, though said it was much reduced from what she had the previous night. She did not have the muscle tension that kept her awake. Today she has been up and about. She says her mood is better. She still is quite withdrawn in her manner. However, she seems to be making more effort. She gets out in the day area. She has been attending all groups in the last two days which is a significant step forward for her. She acknowledges that one issue she has had with her boyfriend is that she had been drinking alcohol and using Kratom behind his back which was something that he was very opposed to because of its euphoric and potentially addictive effect. She has not had change in her general health. She tolerates psychotropic medications. MENTAL STATUS: The patient gave fair eye contact. Psychomotor activity was slow. Speech was monotone and soft. She answered questions with brief responses. Her thoughts were clear. Her affect was blunted. Her mood was reserved. She appeared somewhat distressed. ASSESSMENT: I will continue the current diagnosis and treatment plan. I will continue psychotropic medications the same. She will continue off Zyprexa. I will give her Cogentin 2 mg tonight as well. The patient has made progress. I would aim to discharge the patient tomorrow. We will get a lithium level in the morning. She has appointments set up at [facility]. I discussed issues with her regarding getting involved in social and productive activities in the community which the patient was in agreement. We will coordinate with [facility] for after care. DYLON
[2016-10-25] MEDS: NICOTINE 14MG/24HR PATCH TRANSDERM SCH (08:49)
[2016-10-25] MEDS: DULoxetine HCL 60 MG CAPSULE.DR PO SCH (08:49)
[2016-10-25] MEDS ORDERED: DULoxetine HCL 60 MG CAPSULE.DR PO ONE (21:00)
[2016-10-25] MEDS: LITHIUM CARBONATE 300 MG CAP PO SCH (21:21)
[2016-10-26] MEDS: LEVOTHYROXINE 50 MCG TAB PO SCH (06:28)
[2016-10-26 06:36] VITALS: BP 114/74; PULSE 90; RESP 20; TEMP 97.9
[2016-10-26] MEDS ORDERED: DULoxetine HCL 60 MG CAPSULE.DR PO SCH (09:00)
[2016-10-26] MEDS: NICOTINE 14MG/24HR PATCH TRANSDERM SCH (09:02)
--- NOTE | 2016-10-26 10:26 | PN ---
DATE OF SERVICE: 10/25/2016 CHIEF COMPLAINT: Patient was admitted and transferred from medical floor following stabilization from overdose of 12 Tramadol tablets, plus Adderall. 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 INTERVAL HISTORY: The patient was scheduled to be discharged today. Today she reported that she is having excessive anxiety about the whole idea about being discharged and going home. She talked about when she was in the bathroom this morning she looked at the base of her toothpaste as possibly an item that she could use to scratch herself. She said that her main concern is that if she goes home and has a lot of anxiety she is at high risk for relapse for use of alcohol. She says that in spite of having been attempting to developing coping skills that she is unsure whether she could manage her situation until her follow up appointment at [facility] on Sunday. She was hoping to have Ativan prescribed at discharge even for two days as she felt that she needed that to manage anxiety. She also made suggestion that she thinks she needs to see her prescriber at [facility] to be evaluated for ADHD and to get put back on Adderall. I had an extensive discussion with the patient regarding discharge issues. We talked about the likelihood that the longer she stays in the hospital her anxiety about discharge will predictably get worse. I reviewed with her that all of last week she was very much focused on the idea that she needed to get home and she was ready to get home each day of the week. We deferred discharging the patient during the last week because she was still having issues with depression. We had planned to discharge on Sunday though her lithium level was elevated at 1.9 as reason for deferring the discharge. It is noted that from Sunday on the patient has been reporting her mood is better. Yesterday she said her mood was better. She talked about discharge and she made no comments about the idea of having excessive anxiety, just about the idea of discharge and returning home. We talked about issues that she could potentially relapse to drinking alcohol. I discussed with her that on that basis we need to look at option of deferring her for some substance use treatment whether that might be an inpatient or outpatient program. At this point the patient said she did not need a substance use program. However, she could not come up with a plan where she could be clear that she would not relapse from drinking over the next two days at least until she was able to be seen at [facility]. She denied that she was suicidal. She told the nurse later in the day that she has fear that she would go home and simply take a bunch of her medications. She was not clear as to what the purpose of that would be. She has not had change in her general health. She said she did not sleep well last night mainly because of anxiety about discharge. She has not had any significant problems with muscle cramping. She tolerates her psychotropic medications. MENTAL STATUS: The patient gave fair eye contact. Psychomotor activity was slow. Speech was monotone. She answered questions with brief responses. Her thoughts were coherent and goal directed. She had a quite manner. She had a quiet manner, though later on when she talked to the nurse she was quite tearful. Her mood was dysphoric. She was significantly distress. ASSESSMENT: I will continue the current diagnosis and treatment plan. I will continue psychotropic medications the same including Cymbalta 60 mg twice a day, [place] 600 mg a day. It is noted that her TSH is at 0.4, which is at the low end of normal. As such I will repeat a thyroid profile to be sure she is not showing any signs of hypothyroidism, which could be aggravating anxiety issues for her. At this point we will defer discharge today and set up a family meeting for tomorrow. The main issue will be to develop a family plan for her to return home with some attention to any risk for drinking as well as a focus on how she is going to manage her medications in a safe way. We are making the referral to [facility] for DBT. We will look at possible substance use referrals as well. DYLON
[2016-10-26 10:35] VITALS: BMI 25.3
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
== END 2016-10-25 14:21 | disposition home or self-care (01) | DRG 885 ==
LOC: 3MHU 18:09
PROVIDERS: ADMIT Psychiatry & Neurology Psychiatry; ATTEND Psychiatry & Neurology Psychiatry
DX: F33.2 Major depressive disorder, recurrent severe without psychotic features (principal); R45.851 Suicidal ideations; G40.909 Epilepsy, unspecified, not intractable, without status epilepticus; I45.81 Long QT syndrome; E03.9 Hypothyroidism, unspecified; F60.3 Borderline personality disorder; F43.10 Post-traumatic stress disorder, unspecified; G25.81 Restless legs syndrome; F10.10 Alcohol abuse, uncomplicated; G89.29 Other chronic pain; M54.2 Cervicalgia; M25.519 Pain in unspecified shoulder; I34.1 Nonrheumatic mitral (valve) prolapse; G47.419 Narcolepsy without cataplexy; F17.210 Nicotine dependence, cigarettes, uncomplicated; Z79.899 Other long term (current) drug therapy; Z91.5 Personal history of self-harm; Z90.49 Acquired absence of other specified parts of digestive tract; Z87.442 Personal history of urinary calculi; Z88.8 Allergy status to other drugs, medicaments and biological substances; Z88.5 Allergy status to narcotic agent; Z81.8 Family history of other mental and behavioral disorders
CPT/HCPCS: 70140; 80178; 84439; 84443; 84481; 93005

== ENCOUNTER 2016-11-01 17:28 | Inpatient (IN) | payer MEDICAID, OTHER ==
[2016-11-01 18:16] LABS: Appearance,Urine Cloudy (Clear); Bacteria,Urine Rare /hpf; Bilirubin,Urine Negative (Negative); Glucose,Urine (UA) Negative (Negative); Ketones,Urine Negative (Negative); Leukocyte Esterase,Urine Small (Negative); Mucus,Urine Few /hpf; Nitrite,Urine Negative (Negative); Particle Count 11427; Protein,Urine Trace (Negative); RBC,Urine 2 /hpf (0-5); Specific Gravity,Urine 1.015 (1.001-1.035); Squamous Epithelial Cell,Urine 18 /hpf (0-4); UA Billing (MACRO vs. MICRO) MICRO; Urobilinogen,Urine <2.0 mg/dL (<2.0); WBC,Urine 3 /hpf (0-5)
[2016-11-01] MEDS ORDERED: LORazepam 1 MG TAB PO STA (19:08)
[2016-11-01] MEDS ORDERED: DIPH,PERTUS(ACELL)TETVAC-LF 0.5 ML VIAL IM ONE (19:15)
--- NOTE | 2016-11-01 19:15 | ED ---
General Adult HPI - General Chief complaint: Psychiatric Symptoms Stated complaint: suicidal/anxiety Time Seen by Provider: 11/01/16 17:47 Source: patient Mode of arrival: ambulatory Limitations: no limitations - History of Present Illness Initial comments: Patient is a 36-year-old female with extensive past psychiatric history who presents to the ED for evaluation of suicidal thoughts and self-harm behavior. Patient states that she was hospitalized couple weeks ago after an intentional overdose and suicide attempt. Patient states that she didn't feel she was ready to be discharged. Discharge home. Patient states that she continues to have suicidal thoughts and today she took a box spring maker and caused multiple superficial lacerations to her left wrist and bilateral ankles. Patient states that she was trying to cut herself to kill herself. She states she pressed really hard but was unable to cause a deeper cut with the goal box spring maker. Patient believes her last tetanus was updated greater than 10 years ago. Patient denies any new or acute stressors in her life. She states that she just continues to feel suicidal. She denies any ingestion or attempt at overdose. - Related Data Previous Rx's Medication Instructions Recorded Levothyroxine Sodium [Synthroid] 50 mcg PO DAILY@0630 tab 10/20/16 DULoxetine HCL [Cymbalta] 120 mg PO DAILY #60 cap 10/25/16 [place] Carbonate 600 mg PO HS #60 cap 10/25/16 Allergies Allergy/AdvReac Type Severity Reaction Status Date / Time carbamazepine [From Tegretol] Allergy Rash/Hives Verified 11/01/16 18:04 divalproex sodium Allergy Swelling Verified 11/01/16 18:04 [From Depakote] niacin Allergy Rash/Hives Verified 11/01/16 18:04 nifedipine [From Procardia] Allergy RASH & Verified 11/01/16 18:04 SWELLING diphenhydramine HCl AdvReac MUSCLE Verified 11/01/16 18:04 [From Benadryl] CRAMPS gabapentin [From Neurontin] AdvReac MAKES HER Verified 11/01/16 18:04 FEEL DRUNK pregabalin [From Lyrica] AdvReac MAKES HER Verified 11/01/16 18:04 FEEL DRUNK tramadol HCl [From Ultram] AdvReac SEIZURES Verified 11/01/16 18:04 seizure meds Allergy Rash/Hives Uncoded 08/30/17 17:44 VITAMIN B COMPLEX Allergy Rash/Hives Uncoded 11/01/16 17:44 Review of Systems ROS Statement: Those systems with pertinent positive or pertinent negative responses have been documented in the HPI. ROS Other: All systems not noted in ROS Statement are negative. Constitutional: Denies: fever, chills Respiratory: Denies: cough, dyspnea Cardiovascular: Denies: chest pain, palpitations Endocrine: Reports: fatigue Gastrointestinal: Denies: nausea, vomiting Genitourinary: Denies: urgency, dysuria Skin: Reports: other (Multiple superficial lacerations to left wrist and bilateral ankles). Denies: rash Neurological: Denies: headache Psychiatric: Reports: anxiety, depression, suicidal thoughts Hematological/Lymphatic: Denies: easy bleeding, easy bruising Past Medical History Past Medical History: Mitral Valve Prolapse (MVP), Seizure Disorder, Thyroid Disorder Additional Past Medical History / Comment(s): CHRONIC NECK AND SHOULDER PAIN, HX KIDNEY STONES, ABD HERNIA, NARCOLEPSY, HX SEIZURE X 1 2012, recent injury to tendon right thumb, endometriosis History of Any Multi-Drug Resistant Organisms: None Reported Past Surgical History: Section, Cholecystectomy, Tubal Ligation Additional Past Surgical History / Comment(s): TL X 2 Past Anesthesia/Blood Transfusion Reactions: No Reported Reaction Past Psychological History: Anxiety, Depression Smoking Status: Current some day smoker Past Alcohol Use History: Occasional Past Drug Use History: None Reported - Past Family History Father Additional Family Medical History / Comment(s): BACK PROBLEMS,DEPRESSION- COMMITED SUICIDE @ AGE 53 Mother Family Medical History: Osteoarthritis (OA) Additional Family Medical History / Comment(s): COLITIS General Exam Limitations: no limitations General appearance: alert, in no apparent distress Head exam: Present: atraumatic, normocephalic, normal inspection Eye exam: Present: normal appearance, PERRL ENT exam: Present: normal exam Neck exam: Present: normal inspection. Absent: tenderness, meningismus, lymphadenopathy Respiratory exam: Present: normal lung sounds bilaterally Cardiovascular Exam: Present: regular rate, normal rhythm GI/Abdominal exam: Present: soft. Absent: distended, tenderness Rectal exam: Present: deferred Extremities exam: Present: normal inspection, full ROM, normal capillary refill. Absent: tenderness, pedal edema, joint swelling, calf tenderness Neurological exam: Present: alert, oriented X3, CN II-XII intact Psychiatric exam: Present: depressed, suicidal ideation Skin exam: Present: other (Multiple superficial lacerations to bilateral medial ankles, as well as palmar surface of the left wrist. Bleeding is controlled) Course Vital Signs 11/01/16 11/01/16 17:40 20:03 Temperature 100.3 F H Pulse Rate 89 94 Respiratory 20 18 Rate Blood Pressure 110/71 111/76 O2 Sat by Pulse 99 99 Oximetry Medical Decision Making - Medical Decision Making Patient was seen and evaluated Vital signs were reviewed History was obtained from the patient review of medical record Physical exam reveals multiple superficial lacerations, no active bleeding. Patient is not up-to-date on tetanus. Will order a tetanus today NING was negative Patient was evaluated by psychiatry Patient medically cleared and accepted for transfer to psychiatric facility - Lab Data Lab Results 11/01/16 11/01/16 Range/Units 18:00 18:00 Urine Color Yellow Urine Appearance Cloudy H (Clear) Urine pH 7.0 (5.0-8.0) Ur Specific [place] 1.015 (1.001-1.035) Urine Protein Trace H (Negative) Urine Glucose (UA) Negative (Negative) Urine Ketones Negative (Negative) Urine Blood Negative (Negative) Urine Nitrite Negative (Negative) Urine Bilirubin Negative (Negative) Urine Urobilinogen <2.0 (<2.0) mg/dL Ur Leukocyte Esterase Small H (Negative) Urine RBC 2 (0-5) /hpf Urine WBC 3 (0-5) /hpf Ur Squamous Epith Cells 18 H (0-4) /hpf Urine Bacteria Rare H (None) /hpf Urine Mucus Few H (None) /hpf Urine HCG, Qual Not Detected (Not Detectd) Urine Opiates Screen Not Detected (NotDetected) Ur Oxycodone Screen Not Detected (NotDetected) Urine Methadone Screen Not Detected (NotDetected) Ur Propoxyphene Screen Not Detected (NotDetected) Ur Barbiturates Screen Not Detected (NotDetected) U Tricyclic Antidepress Not Detected (NotDetected) Ur Phencyclidine Scrn Not Detected (NotDetected) Ur Amphetamines Screen Not Detected (NotDetected) U Methamphetamines Scrn Not Detected (NotDetected) U Benzodiazepines Scrn Not Detected (NotDetected) Urine Cocaine Screen Not Detected (NotDetected) U Marijuana (THC) Screen Not Detected (NotDetected) Disposition Clinical Impression: Suicidal ideation, Laceration of wrist without complication Disposition: TRANSFER TO PSYCH HOSP/UNIT Condition: Serious
[2016-11-01] MEDS ORDERED: LORazepam 2 MG/ML SYRINGE IM STA (19:46)
[2016-11-01] MEDS ORDERED: MAG HYDROX/AL HYDROX/SIMETH 30 ML CUP PO PRN (20:50)
[2016-11-01] MEDS ORDERED: MAGNESIUM HYDROXIDE 2,400 MG/10 ML CUP PO PRN (20:50)
[2016-11-01] MEDS ORDERED: LORazepam 0.5 MG TAB PO STA (20:50)
[2016-11-01] MEDS ORDERED: LITHIUM CARBONATE 300 MG CAP PO SCH (21:00)
[2016-11-01] MEDS ORDERED: hydrOXYzine PAMOATE 25 MG CAP PO STA (21:41)
[2016-11-02] MEDS: LEVOTHYROXINE 50 MCG TAB PO SCH (05:27)
[2016-11-02] MEDS ORDERED: DULoxetine HCL 60 MG CAPSULE.DR PO SCH (09:00)
[2016-11-02] MEDS: NICOTINE 21MG/24HR PATCH TRANSDERM SCH (09:05)
[2016-11-02 09:20] LABS: Basophils % (A) 0 %; CH 28.9; CHCM 32.4; Eosinophils # (A) 0.3 k/uL (0-0.7); Eosinophils % (A) 5 %; HCT 37.1 % (34.0-46.0); HDW 2.51; HGB 12.2 gm/dL (11.4-16.0); Luc # (Auto) 0.11; Luc % (Auto) 2; Lymphocytes # (A) 1.3 k/uL (1.0-4.8); Lymphocytes % (A) 18 %; MCH 29.5 pg (25.0-35.0); MCHC 32.9 g/dL (31.0-37.0); MCV 89.8 fL (80.0-100.0); Mean Platelet Volume 8.5; Monocytes # (A) 0.4 k/uL (0-1.0); Monocytes % (A) 5 %; Neutrophils % (A) 70 %; RBC 4.13 m/uL (3.80-5.40); RDW 13.3 % (11.5-15.5); WBC 7.1 k/uL (3.8-10.6); WBC (Perox) 7.67
[2016-11-02 09:39] LABS: ALT 30 U/L (9-52); AST 21 U/L (14-36); Alkaline Phosphatase 76 U/L (38-126); Anion Gap 9 mmol/L; Blood Urea Nitrogen 9 mg/dL (7-17); Calcium 9.6 mg/dL (8.4-10.2); Carbon Dioxide 23 mmol/L (22-30); Chloride 106 mmol/L (98-107); Glucose 82 mg/dL (74-99); Lithium 0.9 mmol/L; Non-African American GFR(MDRD) >60 (>60 ml/min/1.73 sqM); Sodium 138 mmol/L (137-145); Total Bilirubin 0.7 mg/dL (0.2-1.3); Total Protein 6.4 g/dL (6.3-8.2)
[2016-11-02] MEDS: hydrOXYzine PAMOATE 25 MG CAP PO PRN ×4 (10:32→21:01)
[2016-11-02] MEDS: QUEtiapine 100 MG TAB PO SCH ×3 (12:30→20:59)
[2016-11-02] MEDS: FLUoxetine HCL 20 MG CAP PO SCH (12:30)
[2016-11-03] MEDS: LEVOTHYROXINE 50 MCG TAB PO SCH (05:56)
[2016-11-03] MEDS: hydrOXYzine PAMOATE 25 MG CAP PO PRN ×2 (07:39→09:39)
[2016-11-03] MEDS: FLUoxetine HCL 20 MG CAP PO SCH (08:41)
[2016-11-03] MEDS: NICOTINE 21MG/24HR PATCH TRANSDERM SCH (08:41)
[2016-11-03] MEDS: QUEtiapine 100 MG TAB PO SCH ×3 (08:41→21:01)
--- NOTE | 2016-11-03 10:40 | HP ---
HISTORY AND PHYSICAL DATE OF SERVICE: 11/02/2016. IDENTIFYING DATA: The patient is a 36-year-old female, she resides with her boyfriend and children. She was referred to the emergency room for evaluation. CHIEF COMPLAINT: The patient presented with depression and suicide thoughts. She had self-harm behavior of cutting her wrists with a wooden box maker. She claimed that she was trying to kill herself. HISTORY OF PRESENTING ILLNESS: The patient was just discharged from this facility. She had an admission from 10/15/2016 to 10/26/2016. I refer the reader to Dr. Snell's admission note of 10/15/2016 and my discharge summary of 10/26/2016 for details. The patient returned home, she apparently she was isolating herself, she was withdrawn. She had not been functioning well at home. There were no apparent issues of substance abuse in the interim from her discharge. Her lithium level on admission was 0.9. Discharge diagnoses on 10/26/2016 included: 1. Major depressive disorder, recurrent, severe, with acute exacerbation without psychotic features. 2. Substance use disorder including abuse and dependence of opioids, stimulants, and alcohol. 3. Borderline personality disorder. 4. Posttraumatic stress disorder. 5. Seizures secondary to medication overdose. 6. Hypothyroidism. The patient was admitted for further evaluation. Past medical history, review of systems and physical exam as per medical consultation. I refer the reader to the medical consult note of Dr. Sherman of 10/15/2016 for further details. MENTAL STATUS EXAM: The patient was initially quite tearful when she began the interview, as the interview went on she seemed to show considerable clearing in her emotions. She had good eye contact. She was a little restless. Her thoughts were clear and coherent. Toward the end of the interview she was spontaneous and interactive. Her affect was somewhat constricted, her mood reserved. She had an anxious manner. She appeared to be somewhat distressed. ASSESSMENT: This 36-year-old female with 3 admitted for further evaluation. Her statement is that she believes she was discharged too soon from the facility, she did have at least one followup contact with [facility]. She understands that she would be referred to DBT, however, there is a waiting period for the next DBT group to a start up. Issues at home regarding her current situation are uncertain. DIAGNOSES: 1. Major depressive disorder, recurrent, severe, with acute exacerbation without psychotic features. 2. Substance use disorder including abuse and dependence of opioid stimulants and alcohol. 3. Borderline personality disorder. 4. Posttraumatic stress disorder. 5. History of seizures secondary to medication overdose. 6. Hypothyroidism. RECOMMENDATIONS: The patient will be admitted for comprehensive medical, psychiatric, and psychosocial evaluation. We we will make efforts to engage the patient in individual and group therapeutic activities. The patient currently has been on Cymbalta 120 mg a day without clear benefit, as such will discontinue Cymbalta and start the patient on Prozac 20 mg a day. [place] had been added to augment her antidepressant. Given the failure of the augmentation trial I will discontinue lithium as well. I will start the patient on Seroquel 100 mg 3 times a day. I had talked with the patient about medication options to help manage physiologic stress response as it relates to her anxieties and posttraumatic symptoms. The patient felt that for her experience, Seroquel would be preferable to Zyprexa which she had been on previously. In addition, she is prescribed Vistaril 100 mg 4 times a day p.r.n. for anxiety. I strongly encouraged the patient to work on nonpharmacologic interventions to help manage emotional issues. We will evaluate the patient for possible referral to partial hospitalization at [facility]. The patient says that she has been in that program before and was not adverse to going there again. We will continue to focus on stabilization and discharge planning. KRYSTAL / JESI: [id number] /
[2016-11-03] MEDS: hydrOXYzine PAMOATE 25 MG CAP PO SCH ×2 (13:01→20:50)
[2016-11-03] MEDS ORDERED: HALOPERIDOL LACTATE 5 MG/ML 1 ML VIAL IM STA (23:00)
--- NOTE | 2016-11-04 04:49 | PN ---
PROGRESS NOTE DATE OF SERVICE: 11/03/2016 CHIEF COMPLAINT: The patient presented with depression and suicide thoughts. She had self-harm behavior of cutting her wrists with a jig box operator. She claimed that she was trying to kill herself. INTERVAL HISTORY: Patient has been doing fair. She had a quiet evening last night. She reportedly slept fairly well. Today she has been up and about. She does interact with some other patients. She comes to some groups though not others, what is noted in groups that has been fairly typical for her is as follows: Mood affect bland, appearance appropriate, behavior withdrawn, thought process vague, interacts with peers withdrawn, interacts with staff withdrawn, psychomotor low energy. She continues to focus on medications. She frequently comes to staff asking for 1 medication or another. She believes that the Vistaril helps her so she wanted it more less on a scheduled basis and in between. Her Seroquel I offered the option of going up on the Seroquel though she thought the Vistaril helps some. She has not had change in her general health. She tolerates the psychotropic medications. MENTAL STATUS: The patient gave fair eye contact. Psychomotor activity was slow. Speech was soft. She answered questions with brief responses. Her thoughts were clear. Her affect was flat. Her mood reserved. She was somewhat distressed. ASSESSMENT: I will continue the current diagnosis and treatment plan. I discussed with the patient that we have started Prozac so it will take some time for us to anticipate benefit from Prozac. She is on Seroquel 100 mg 3 times a day, which does have the indication of helping augment her antidepressant as well as reducing physiologic stress response as it relates to high anxiety and posttraumatic symptoms. I will give her Vistaril 100 mg in between her Seroquel doses so she will take a 12:00 dose and a 7 p.m. dose. We will continue to make efforts to focus the patient on developing coping strategies as opposed to feeling she needs to manage anxiety by coming to staff to seek out medications. We will continue to focus on stabilization and discharge planning. We have made a referral for partial hospitalization. MMODL / IJN: [id number] /
[2016-11-04] MEDS: LEVOTHYROXINE 50 MCG TAB PO SCH (06:10)
[2016-11-04] MEDS: NICOTINE 21MG/24HR PATCH TRANSDERM SCH (08:24)
[2016-11-04] MEDS: QUEtiapine 100 MG TAB PO SCH ×3 (08:25→20:46)
[2016-11-04] MEDS: FLUoxetine HCL 20 MG CAP PO SCH (08:25)
[2016-11-04] MEDS: hydrOXYzine PAMOATE 25 MG CAP PO SCH ×2 (08:25→18:22)
[2016-11-04] MEDS ORDERED: hydrOXYzine PAMOATE 25 MG CAP PO ONE (13:40)
[2016-11-04] MEDS: ACETAMINOPHEN TAB 325 MG TAB PO PRN (18:54)
[2016-11-04] MEDS ORDERED: hydrOXYzine HCL 25 MG TAB PO STA (21:36)
[2016-11-05] MEDS: LEVOTHYROXINE 50 MCG TAB PO SCH (06:29)
[2016-11-05] MEDS: NICOTINE 21MG/24HR PATCH TRANSDERM SCH (08:26)
[2016-11-05] MEDS: FLUoxetine HCL 20 MG CAP PO SCH (08:27)
[2016-11-05] MEDS: QUEtiapine 100 MG TAB PO SCH ×3 (08:28→20:53)
--- NOTE | 2016-11-05 08:30 | PN ---
PROGRESS NOTE DATE OF SERVICE: 11/04/2016. CHIEF COMPLAINT: The patient presented with depression and suicide thoughts. She had self-harm behavior of cutting her wrists with a box sealing machine operator. She claimed that she was trying to kill herself. INTERVAL HISTORY: The patient has been doing fairly well. She had some difficulty last evening. She had a difficult period where she was in the dining area and tipped the table over. Her explanation of that was that she just had an impulse that she really could not explain. She said she was overtaken with some sense of distress though she could not identify precipitants. She did receive a 1 time dose of Haldol at 2312 with good effect. She slept fairly well last night. Today she has been up and about. She seems to be doing a little better. Overall she seems a little more engaged in the treatment process. She has had a less complaints regarding needing medications. She was able to talk about the problem she ran into at home with not being able to function. She could not really identify a plan of how she could return home and be able to be more functional. She was willing to have her mother come in to be able to talk about some of these issues. She believes that getting into partial hospitalization would be a good step for her. She feels she needs more support than she finds at home. She does say that she has a lot of stress with the idea of her children entering school and all the issues that need to be dealt with with that. On the other hand, she does not seem to feel the need to get home to help get her children ready for school. We talked about the option of discharge on Sunday as there is a possibility she could enter day treatment on Sunday. The patient initially hesitated with that idea though and then was able to come to some understanding that when she is in partial hospitalization she basically will be at home and will need to deal with all of the things that come with that as far as supporting her family. The patient feels that her medications have been helpful. She has not had change in her general health. She tolerates his psychotropic medications. MENTAL STATUS: Patient gave fair eye contact. Psychomotor activity was slowed. Speech was monotone. She answered questions with brief responses. Her thoughts were clear. Her affect was blunted. Her mood was quiet. She did not appear to be significantly distressed. ASSESSMENT: I will continue the current diagnosis and treatment plan. I will increase the patient's Seroquel to 150 mg 3 times a day. I will continue Vistaril at 100 mg at 12 noon and 100 mg at 1900. She is also on Prozac 20 mg a day. We had an extensive discussion regarding discharge planning. We will set up a family meeting tomorrow with her mother. KRYSTAL / JESI: [id number] /
[2016-11-05] MEDS: hydrOXYzine PAMOATE 25 MG CAP PO SCH ×2 (12:25→18:55)
--- NOTE | 2016-11-05 16:24 | PN ---
PROGRESS NOTE DATE OF SERVICE: 11/05/2016 CHIEF COMPLAINT: The patient presented with depression and suicide thoughts. She had self-harm behavior of cutting her wrists with a box toe buffer. She claimed that she was trying to kill herself. INTERVAL HISTORY: Patient has been doing fair. Overall she seems to be doing a little better. She has some ups and downs. She can have periods where she gets impulsive. She has had some difficult interactions. She does respond to staff support. She acknowledges that she has some impulsive moments though when she gets away from that she feels a little better. Overall she seems to be a little bit more connected to the treatment process. She says she has not been sleeping well. She has not had change in her general health. She tolerates his psychotropic medications. MENTAL STATUS EXAM: Patient gave good eye contact. She had a calm manner. Her affect was somewhat blunted. Her mood was quiet. She did not appear to be significantly distressed. ASSESSMENT: I will continue the current diagnosis and treatment plan. The patient appears to be making progress. She is showing a little bit of insight about her situation. I will increase her nighttime Seroquel to 250 mg a day. We will focus on a family meeting as part of discharge planning. I would aim to discharge the patient on Sunday. MMODL / IJN: [id number] /
[2016-11-05] MEDS ORDERED: SERTRALINE 100 MG TAB PO SCH (21:00)
[2016-11-05] MEDS ORDERED: hydrOXYzine HCL 25 MG TAB PO STA (21:52)
[2016-11-06] MEDS: LEVOTHYROXINE 50 MCG TAB PO SCH (06:17)
[2016-11-06] MEDS: FLUoxetine HCL 20 MG CAP PO SCH (08:42)
[2016-11-06] MEDS: QUEtiapine 100 MG TAB PO SCH ×3 (08:42→20:30)
[2016-11-06] MEDS: NICOTINE 21MG/24HR PATCH TRANSDERM SCH (08:42)
[2016-11-06] MEDS: hydrOXYzine PAMOATE 25 MG CAP PO SCH ×2 (12:04→18:45)
--- NOTE | 2016-11-06 16:37 | PN ---
PROGRESS NOTE / TRANSFER NOTE: DATE OF SERVICE: 11/06/2016. CHIEF COMPLAINT: The patient presented with depression and suicide thoughts. She had self-harm behavior of cutting her wrists with a box printing machine operator. She claimed that she was trying to kill herself. SUMMARY: The patient was readmitted after a 2 week hospitalization. She functions poorly at home and tends to turn to substance abuse to manage anxiety and mood difficulty. She has 4 children at home but has barely been able to function to care for them. She presented with depression and suicide thoughts. She has significant PTSD symptoms from childhood. She apparently has been using cocaine going back to her early to mid teens. She isolates herself at home and then gets into difficult situations. She lives with a boyfriend who works long hours and is not very available to connect with her. The patient's mother provides a lot of support in the home. The patient has been doing better. We had a family meeting yesterday and it was noted that the patient will have episodes where she reports she is not aware of what she is doing. Mother gave as an example, she had gotten into a safe that her had apparently requiring fingerprints and got his medications. We discussed that either the patient had a blackout and was not aware of what she was doing or she simply confabulates. Patient did share that she has periods where she may get in the car and go somewhere and then have no idea where she was at or how she got there. The patient has raised concern regarding possible Dissociative Identity Disorder. We are waiting on the possibility of her being referred for partial hospitalization at [facility] and following that a referral for DBT. INTERVAL HISTORY: Patient has been doing fair. Overall she seems to be doing better. She is showing a little more awareness of her situation. It was noteworthy that the family meeting with her mother when asked what medication she is on she said she really did not know though she could name the names of the medications. I talked with the patient about the importance that she know the names and doses of her medications. It was noted that evening there was a mistake in medications and the patient herself was able to recognize it was the wrong medication. She was given positive for having been able to do that. We have had extensive discussion about functional issues. She has been encouraged to get a day turnaround planner to begin to make changes in her general function at home. The treatment plan is aimed towards longer-term care. Patient continues to say she is reluctant to the idea of going home and having to wait any number of days before she enters into something like partial hospitalization. Overall her mood has improved. She is sleeping better. She has not had change in her general health. She tolerates his psychotropic medications. MENTAL STATUS: Patient gave good eye contact. Psychomotor activity was somewhat restless. Her speech was clear. Her affect is somewhat anxious. Her mood dysphoric. She was not significantly distressed. ASSESSMENT: I will continue the current diagnosis and treatment plan. We are awaiting to hear about options of partial hospitalization presumably at [facility]. Once that gets clarified we could plan discharge. By the patient's report she would prefer to be discharged on the day prior to going to a partial hospitalization. She says that she would feel more safe and secure knowing that she could go home and simply started new program without any break in mental health care. Beyond that she has been referred to DBT through [facility]. I would aim for 1 additional family meeting for discharge planning at the time that she will be discharged. KRYSTAL / JESI: [id number] / DYLON
[2016-11-07] MEDS: LEVOTHYROXINE 50 MCG TAB PO SCH (05:43)
[2016-11-07] MEDS: NICOTINE 21MG/24HR PATCH TRANSDERM SCH (08:31)
[2016-11-07] MEDS: FLUoxetine HCL 20 MG CAP PO SCH (08:32)
[2016-11-07] MEDS: QUEtiapine 100 MG TAB PO SCH ×3 (08:32→20:56)
[2016-11-07] MEDS: hydrOXYzine PAMOATE 25 MG CAP PO SCH ×2 (11:50→19:10)
--- NOTE | 2016-11-07 14:13 | P.PN ---
Progress Note - Text Interval History: Patient is a 36-year-old female who is being seen after transfer from Dr. Castro. Patient had been in the hospital and discharged on October 26 and was readmitted on the with continuing complaints of depression and anxiety. Patient reports that she is doing fairly well on the medications and states that she still up and down at night and not sleeping that well. She states that she was slightly depressed today and wonders if it is because she missed her children going to school today, changes in the patient population on the unit and states that she feels somewhat helpless. She reports that she is having no current suicidal ideation and is not feeling hopeless. She states that her energy is elevated and she thinks that the medications have been helpful for her. She states the Vistaril has been helping with her anxiety. Patient has been attending groups and activities. Mental Status: Appearance/Attitude: Patient is appropriately dressed, makes good eye contact and is cooperative. Behavior: Patient does not display any psychomotor agitation or retardation. Speech/Language: Patient's speech is spontaneous and of normal volume and rhythm and she is coherent. Thought Process: Patient is goal-directed and there is no evidence of circumstantial or tangential thought and no loose associations or flight of ideas. Thought Content: Patient denies any auditory or visual hallucinations no delusions or paranoid ideation were elicited. Patient states she continues to feel helpless because she is here in the hospital was not able to see her children off to school this morning as well as some concerns about the changing population on the unit. Patient states her sleep is still disrupted and her energy level has increased. Patient reports she is eating well. Suicidal/Homicidal Ideation: Patient denies any current suicidal or homicidal ideation Sensorium/Cognition: . Patient is alert and oriented to person place and time and her memory is grossly intact. Mood/Affect: Patient's mood remains depressed and her affect is slightly blunted. Insight/Judgement: Patient's insight and judgment are fair. Assessment: Patient and I discussed her response to her current medications and she thinks she is doing better than she was in the past. Patient reports she is not feeling hopeless and is not having any symptoms of anxiety. She states that her energy level is increased but her sleep still remains disrupted. Patient remains slightly depressed and states she is aware she is not ready to return home. Plan: Patient will continue on Prozac 20 mg to target her depression and Vistaril 100 mg twice a day to target her anxiety. Patient is currently taking Seroquel 150 mg twice a day I will increase her bedtime dose to 300 mg to improve her sleep and stabilize her mood. Patient is awaiting an opening at [facility] and continues to require hospitalization to stabilize her mood.
[2016-11-08] MEDS: LEVOTHYROXINE 50 MCG TAB PO SCH (06:35)
[2016-11-08] MEDS: NICOTINE 21MG/24HR PATCH TRANSDERM SCH (08:31)
[2016-11-08] MEDS: QUEtiapine 100 MG TAB PO SCH ×3 (08:31→21:23)
[2016-11-08] MEDS: FLUoxetine HCL 20 MG CAP PO SCH (08:31)
[2016-11-08] MEDS: hydrOXYzine PAMOATE 25 MG CAP PO SCH ×2 (11:31→18:31)
--- NOTE | 2016-11-08 13:15 | P.PN ---
Progress Note - Text Interval History: Patient is a 36-year-old female who was seen today and states that she is sleeping better and is not groggy during the day. She states her mood is improved by about 15% from her admission and she reports this is due to her being more social on the unit, sleeping better and having some increased energy. She continues to feel no motivation to do things and states that she at times feels hopeless and helpless. She reports no further suicidal thoughts and no wish to . Patient continues to verbalize that she feels unable to cope if she returns home immediately from the hospital. Patient reports an abusive opiates in the past last using 8 months ago she states that she took them to improve her mood because the increased her level of energy and improved her mood. Patient reports no complaints of side effects from the medication. Mental Status: Appearance/Attitude: Patient is appropriately dressed, makes good eye contact and is cooperative. Behavior: Patient does not display any psychomotor agitation or retardation. Speech/Language: patient's speech is spontaneous and of normal volume and rhythm and she is coherent. Thought Process: Patient is goal-directed and there is no evidence of circumstantial or tangential speech and she has no evidence of loose associations or flight of ideas. Thought Content: Patient denies any auditory or visual hallucinations and no paranoid ideation or delusions were elicited. The patient reports that she continues at times to feel hopeless and helpless and has no motivation to do things. She does report that she is more social on the unit feels her sleep is improved and her energy level has increased. Patient states she is eating well. She reported no complaints of side effects from the medication. Suicidal/Homidal Ideation: Patient denies any current suicidal or homicidal ideation. Sensorium/Cognition: Patient is alert and oriented to person, place, and time and her memory is grossly intact. Mood/Affect: patient's mood remains depressed, however today she did smile during the interview and her affect remains slightly blunted. Insight/Judgement: patient's insight and judgment are fair. Assessment: [Patient reports improvement on the combination of medications that she is receiving due to a an improvement in her sleep, an increase in her energy level and the fact that she is more social on the unit. Patient continues to have occasional episodes of feeling hopeless and helpless but states that she is no longer having any suicidal thoughts and no wish to . Patient continues to verbalize that she will feel overwhelmed should she return home from the hospital as this is occurred in the past. Plan: patient will continue on Prozac 20 mg in the morning and Seroquel 150 mg twice a day and 300 mg at bedtime as well as Vistaril 100 mg twice a day to target her mood anxiety and depression. Patient continues to await placement in a partial hospital program, should she not obtain a program placement by tomorrow we will consider discharge to her home she can await placement in a partial program from there.
[2016-11-09] MEDS: LEVOTHYROXINE 50 MCG TAB PO SCH (06:39)
[2016-11-09 06:53] VITALS: BP 102/66; PULSE 70; RESP 16; TEMP 98
[2016-11-09] MEDS: NICOTINE 21MG/24HR PATCH TRANSDERM SCH (08:20)
[2016-11-09] MEDS: FLUoxetine HCL 20 MG CAP PO SCH (08:20)
[2016-11-09] MEDS: QUEtiapine 100 MG TAB PO SCH (08:20)
[2016-11-09] MEDS: ACETAMINOPHEN TAB 325 MG TAB PO PRN (09:19)
--- NOTE | 2016-11-09 11:07 | P.DS ---
Providers Date of admission: 11/01/16 19:57 Expected date of discharge: 11/09/16 Attending physician: Tana Paz MD Consults: 11/01/16 20:50 Consult Physician Routine Consulting Provider: Stefano Sherman Consult Reason/Comments: Medical Management Do you want consulting provider notified?: Already Contacted Primary care physician: Stefano Sherman Hospital Course: Discharge Diagnoses: Major depressive disorder, recurrent, severe without psychotic features; opioid and stimulant use disorder Reason for Admission: Patient is a 36-year-old female who was readmitted on November 01 after being discharged on October 26. Patient returned home and was continuing to be isolating and withdrawn and not functioning well. Patient at home had been cutting her wrist with a experimental box tester and stated that she was trying to kill herself. Patient also had used opiates and amphetamines in the past that were not prescribed for her and prior to her admission on October 15 had had a seizure secondary to an overdose of medication. Patient has a history of treatment for depression as well as a diagnosis of borderline personality disorder. Patient return to the hospital stating that she was doing well on the medications, had attempted to kill herself and continued to feel depressed. Patient had been discharged on Cymbalta as well as lithium and she felt these were not effective. Hospital Course: Patient was admitted on a voluntary basis, routine laboratory studies were obtained, medical consultation was obtained and the patient was placed on routine precautions. Patient was also ordered group and activity therapy. Due to the lack of effectiveness of her medications she was switched from Cymbalta to Prozac and it was started at a dose of 20 mg a day. Her lithium was also discontinued and she was started on Seroquel as an augmentation strategy for her depression. Due to the patient's complaints of anxiety she was also begun on Vistaril 100 mg twice a day. Patient's dose of Prozac remained constant throughout the hospital stay and her Seroquel was titrated to 150 mg twice a day and 300 mg at bedtime. Patient was participating in groups and activities on the unit and reported no further suicidal ideation however the night prior to her discharge she had scratched her wrist with a plastic knife stating that she was anxious and wanted to relieve the pain. She reports that this was not a suicide attempt. Patient reported during the hospital stay that her energy level had increased, she was feeling less depressed than on admission, she was sleeping and eating well but continued to have concerns about returning home and feeling overwhelmed. She reported periods of feeling hopeless and helpless but states that those were less frequent than on admission. Patient reported no suicidal ideation and no wish to . Patient states that she has no side effects from the medications and felt that these were more effective than her prior medications. Patient was also continued on her Synthroid for treatment of her hypothyroidism. Discharge Mental Status:Appearance/Attitude: Patient is appropriately dressed, makes good eye contact and is cooperative. Behavior: Patient is not displaying any psychomotor agitation or retardation. Speech/Language: Patient's speech is spontaneous and of normal volume and rhythm and she is coherent. Thought Process: Patient was goal-directed there is no evidence of loose associations or flight of ideas and she is not circumstantial or tangential. Thought Content: Patient denies any auditory or visual hallucinations no delusions or paranoid ideation were elicited. Patient reports her energy level is increased, she is sleeping and eating well and states that she only occasionally feels hopeless or helpless. Patient reports that last evening she was anxious and did scratch her wrist with a plastic knife but this was not a suicide attempt. Patient states that she is still concerned about returning home and feeling overwhelmed. Suicidal/Homicidal Ideation: Patient denies any current suicidal or homicidal ideation. Sensorium/Cognition: Patient is alert and oriented to person, place, and time and her memory is grossly intact. Mood/Affect: Patient's mood remains slightly depressed and her affect is slightly blunted. Insight/Judgement: Patient's insight and judgment are fair. Laboratory Last Values WBC 7.1 k/uL (3.8-10.6) 11/02/16 08:45 RBC 4.13 m/uL (3.80-5.40) 11/02/16 08:45 Hgb 12.2 gm/dL (11.4-16.0) 11/02/16 08:45 Hct 37.1 % (34.0-46.0) 11/02/16 08:45 MCV 89.8 fL (80.0-100.0) 11/02/16 08:45 MCH 29.5 pg (25.0-35.0) 11/02/16 08:45 MCHC 32.9 g/dL (31.0-37.0) 11/02/16 08:45 RDW 13.3 % (11.5-15.5) 11/02/16 08:45 Plt Count 235 k/uL (150-450) 11/02/16 08:45 Neutrophils % 70 % 11/02/16 08:45 Lymphocytes % 18 % 11/02/16 08:45 Monocytes % 5 % 11/02/16 08:45 Eosinophils % 5 % 11/02/16 08:45 Basophils % 0 % 11/02/16 08:45 Neutrophils # 5.0 k/uL (1.3-7.7) 11/02/16 08:45 Lymphocytes # 1.3 k/uL (1.0-4.8) 11/02/16 08:45 Monocytes # 0.4 k/uL (0-1.0) 11/02/16 08:45 Eosinophils # 0.3 k/uL (0-0.7) 11/02/16 08:45 Basophils # 0.0 k/uL (0-0.2) 11/02/16 08:45 Sodium 138 mmol/L (137-145) 11/02/16 08:45 Potassium 4.0 mmol/L (3.5-5.1) 11/02/16 08:45 Chloride 106 mmol/L (98-107) 11/02/16 08:45 Carbon Dioxide 23 mmol/L (22-30) 11/02/16 08:45 Anion Gap 9 mmol/L 11/02/16 08:45 BUN 9 mg/dL (7-17) 11/02/16 08:45 Creatinine 0.80 mg/dL (0.52-1.04) 11/02/16 08:45 Est GFR (MDRD) Af Amer >60 (>60 ml/min/1.73 sqM) 11/02/16 08:45 Est GFR (MDRD) Non-Af >60 (>60 ml/min/1.73 sqM) 11/02/16 08:45 Glucose 82 mg/dL (74-99) 11/02/16 08:45 Calcium 9.6 mg/dL (8.4-10.2) 11/02/16 08:45 Total Bilirubin 0.7 mg/dL (0.2-1.3) 11/02/16 08:45 AST 21 U/L (14-36) 11/02/16 08:45 ALT 30 U/L (9-52) 11/02/16 08:45 Alkaline Phosphatase 76 U/L (38-126) 11/02/16 08:45 Total Protein 6.4 g/dL (6.3-8.2) 11/02/16 08:45 Albumin 4.0 g/dL (3.5-5.0) 11/02/16 08:45 TSH 1.230 mIU/L (0.465-4.680) 11/02/16 08:45 Urine Color Yellow 11/01/16 18:00 Urine Appearance Cloudy (Clear) H 11/01/16 18:00 Urine pH 7.0 (5.0-8.0) 11/01/16 18:00 Ur Specific [place] 1.015 (1.001-1.035) 11/01/16 18:00 Urine Protein Trace (Negative) H 11/01/16 18:00 Urine Glucose (UA) Negative (Negative) 11/01/16 18:00 Urine Ketones Negative (Negative) 11/01/16 18:00 Urine Blood Negative (Negative) 11/01/16 18:00 Urine Nitrite Negative (Negative) 11/01/16 18:00 Urine Bilirubin Negative (Negative) 11/01/16 18:00 Urine Urobilinogen <2.0 mg/dL (<2.0) 11/01/16 18:00 Ur Leukocyte Esterase Small (Negative) H 11/01/16 18:00 Urine RBC 2 /hpf (0-5) 11/01/16 18:00 Urine WBC 3 /hpf (0-5) 11/01/16 18:00 Ur Squamous Epith Cells 18 /hpf (0-4) H 11/01/16 18:00 Urine Bacteria Rare /hpf (None) H 11/01/16 18:00 Urine Mucus Few /hpf (None) H 11/01/16 18:00 Urine HCG, Qual Not Detected (Not Detectd) 11/01/16 18:00 Urine Opiates Screen Not Detected (NotDetected) 11/01/16 18:00 Ur Oxycodone Screen Not Detected (NotDetected) 11/01/16 18:00 Urine Methadone Screen Not Detected (NotDetected) 11/01/16 18:00 Ur Propoxyphene Screen Not Detected (NotDetected) 11/01/16 18:00 Ur Barbiturates Screen Not Detected (NotDetected) 11/01/16 18:00 U Tricyclic Antidepress Not Detected (NotDetected) 11/01/16 18:00 Ur Phencyclidine Scrn Not Detected (NotDetected) 11/01/16 18:00 Ur Amphetamines Screen Not Detected (NotDetected) 11/01/16 18:00 U Methamphetamines Scrn Not Detected (NotDetected) 11/01/16 18:00 U Benzodiazepines Scrn Not Detected (NotDetected) 11/01/16 18:00 Prosper 0.9 mmol/L 11/02/16 08:45 Urine Cocaine Screen Not Detected (NotDetected) 11/01/16 18:00 U Marijuana (THC) Screen Not Detected (NotDetected) 11/01/16 18:00 Risk Assessment: Patient's risk is moderate secondary to prior suicide attempts , use of drugs Discharge Plan: Patient will be discharged and she will begin partial hospital program at [facility] today. Patient will continue on Seroquel 150 mg twice a day and 300 mg at bedtime, Prozac 20 mg in the morning and Vistaril 100 mg twice a day. Patient will be given prescriptions for this and states she has sufficient Synthroid at home to continue. Patient Condition at Discharge: Stable Plan - Discharge Summary New Discharge Prescriptions: New FLUoxetine HCL [PROzac] 20 mg PO DAILY #14 cap hydrOXYzine PAMOATE [Vistaril] 100 mg PO BID #28 capsule QUEtiapine FUMARATE [SEROquel] 300 mg PO BID #28 tab Continue Levothyroxine Sodium [Synthroid] 50 mcg PO DAILY@0630 tab Discontinued Prosper Carbonate 600 mg PO HS #60 cap DULoxetine HCL [Cymbalta] 120 mg PO DAILY #60 cap Discharge Medication List Levothyroxine Sodium [Synthroid] 50 mcg PO DAILY@0630 tab 10/20/16 [Rx] FLUoxetine HCL [PROzac] 20 mg PO DAILY #14 cap 11/09/16 [Rx] QUEtiapine FUMARATE [SEROquel] 300 mg PO BID #28 tab 11/09/16 [Rx] hydrOXYzine PAMOATE [Vistaril] 100 mg PO BID #28 capsule 11/09/16 [Rx] Follow up Appointment(s)/Referral(s): intake,intake [Other] - [address] [facility] [Outside] - 11/14/16 11:00 am (Donna Booth) Stefano Sherman MD [Primary Care Provider] - 1-2 days Patient Instructions/Handouts: How to Stop Smoking (DC), Mood Disorders (DC), Depression (DC), Post Traumatic Stress Disorder (DC), Suicide Prevention for Adults (DC) Activity/Diet/Wound Care/Special Instructions: Regular diet and activity as tolerated. No alcohol or street drugs. Remove all firearms from the home. Follow up with your primary care Dr. in 1-2 days. Keep your outpatient provider appt as set up at time of discharge. If needing medication refills, contact your PCP or Psychiatrist. Call crisis line at [phone] or [phone] if having thoughts of hurting yourself or others. Discharge Disposition: HOME SELF-CARE
[2016-11-09] MEDS: hydrOXYzine PAMOATE 25 MG CAP PO SCH (11:17)
--- NOTE | 2016-11-09 11:57 | P.HPIM ---
History of Present Illness H&P Date: 11/05/16 Chief Complaint: Depression,anxiety patient presents with depression and anxiety Review of Systems Constitutional: Reports as per HPI Ears, nose, mouth and throat: Reports as per HPI Cardiovascular: Reports as per HPI Respiratory: Reports as per HPI Gastrointestinal: Reports as per HPI Genitourinary: Reports pelvic pain Menstruation: Reports menses variable Musculoskeletal: Reports as per HPI Integumentary: Reports as per HPI Neurological: Reports as per HPI Psychiatric: Reports anhedonia, Reports anxiety, Reports change in libido, Reports depression, Reports hopelessness Endocrine: Reports as per HPI Past Medical History Past Medical History: Mitral Valve Prolapse (MVP), Seizure Disorder, Thyroid Disorder Additional Past Medical History / Comment(s): CHRONIC NECK AND SHOULDER PAIN, HX KIDNEY STONES, ABD HERNIA, NARCOLEPSY, HX SEIZURE X 1 2012, recent injury to tendon right thumb, endometriosis History of Any Multi-Drug Resistant Organisms: None Reported Past Surgical History: Section, Cholecystectomy, Tubal Ligation Additional Past Surgical History / Comment(s): TL X 2 Past Anesthesia/Blood Transfusion Reactions: No Reported Reaction Smoking Status: Current some day smoker - Past Family History Father Additional Family Medical History / Comment(s): BACK PROBLEMS,DEPRESSION- COMMITED SUICIDE @ AGE 53 Mother Family Medical History: Osteoarthritis (OA) Additional Family Medical History / Comment(s): COLITIS Medications and Allergies Home Medications Medication Instructions Recorded Confirmed Type Levothyroxine Sodium [Synthroid] 50 mcg PO DAILY@0630 tab 10/20/16 11/03/16 Rx FLUoxetine HCL [PROzac] 20 mg PO DAILY #14 cap 11/09/16 Rx QUEtiapine FUMARATE [SEROquel] 300 mg PO BID #28 tab 11/09/16 Rx hydrOXYzine PAMOATE [Vistaril] 100 mg PO BID #28 capsule 11/09/16 Rx Allergies Allergy/AdvReac Type Severity Reaction Status Date / Time carbamazepine [From Tegretol] Allergy Rash/Hives Verified 11/03/16 05:40 divalproex sodium Allergy Swelling Verified 11/03/16 05:40 [From Depakote] niacin Allergy Rash/Hives Verified 11/03/16 05:40 nifedipine [From Procardia] Allergy RASH & Verified 11/03/16 05:40 SWELLING diphenhydramine HCl AdvReac MUSCLE Verified 11/03/16 05:40 [From Benadryl] CRAMPS gabapentin [From Neurontin] AdvReac MAKES HER Verified 11/03/16 05:40 FEEL DRUNK pregabalin [From Lyrica] AdvReac MAKES HER Verified 11/03/16 05:40 FEEL DRUNK tramadol HCl [From Ultram] AdvReac SEIZURES Verified 11/03/16 05:40 seizure meds Allergy Rash/Hives Uncoded 11/03/16 05:40 VITAMIN B COMPLEX Allergy Rash/Hives Uncoded 11/03/16 05:40 Physical Exam Osteopathic Statement: *. No significant issues noted on an osteopathic structural exam other than those noted in the History and Physical/Consult. Vitals: Vital Signs Temp Pulse Resp BP 11/09/16 06:52 98.0 F 70 16 102/66 Heent: eomi carol tmi bila Neck: supple no jvd Heart:rrr-no murmor Lungs:clear bilat Abdm:soft non-tender no mass Ext: no edema no cyanosis no claudication Neuro: wnl Results CBC & Chem 7: 11/02/16 08:45 11/02/16 08:45 Thrombosis Risk Factor Assmnt - Choose All That Apply Any of the Below Risk Factors Present?: No Assessment and Plan (1) Abdominal pain Status: Acute (2) Depression Status: Acute Plan: depression endometriosis physically stable
== END 2016-11-09 11:32 | disposition home or self-care (01) | DRG 885 ==
LOC: EC 17:28 → 3MHU 19:57
PROVIDERS: ADMIT Psychiatry & Neurology Psychiatry; ATTEND Psychiatry & Neurology Psychiatry
DX: F33.2 Major depressive disorder, recurrent severe without psychotic features (principal); R45.851 Suicidal ideations; F11.20 Opioid dependence, uncomplicated; F15.20 Other stimulant dependence, uncomplicated; S91.011A Laceration without foreign body, right ankle, initial encounter; E03.9 Hypothyroidism, unspecified; F17.200 Nicotine dependence, unspecified, uncomplicated; F43.10 Post-traumatic stress disorder, unspecified; F60.3 Borderline personality disorder; G47.419 Narcolepsy without cataplexy; I34.1 Nonrheumatic mitral (valve) prolapse; N80.9 Endometriosis, unspecified; S61.512A Laceration without foreign body of left wrist, initial encounter; S91.012A Laceration without foreign body, left ankle, initial encounter; X78.1XXA Intentional self-harm by knife, initial encounter; Z81.8 Family history of other mental and behavioral disorders; Z79.899 Other long term (current) drug therapy; Z87.442 Personal history of urinary calculi; Z91.5 Personal history of self-harm; M25.519 Pain in unspecified shoulder; M54.2 Cervicalgia; G89.29 Other chronic pain; F17.210 Nicotine dependence, cigarettes, uncomplicated; F10.20 Alcohol dependence, uncomplicated; Z88.8 Allergy status to other drugs, medicaments and biological substances
CPT/HCPCS: 80053; 80178; 80306; 81001; 81025; 82075; 84443; 85025; 87086; 90471; 90715; 96372; 99285

== ENCOUNTER → 2017-04-04 | Outpatient (CLI) | payer OTHER ==
--- NOTE | 2017-04-04 09:03 | CT ---
EXAMINATION TYPE: CT abdomen pelvis wo con DATE OF EXAM: 04/04/2017 HISTORY: Renal Stones per order. Passed kidney stone 4 days ago per patient after having abdominal pa in into low back for 7 days with history of kidney stones. CT DLP: 933 mGycm. Automated Exposure Control for Dose Reduction was Utilized. TECHNIQUE: CT scan of the abdomen and pelvis is performed without oral or IV contrast. COMPARISON: CT abdomen and pelvis August 07, 2015 FINDINGS: Within the limitations of a non-contrast study, the following observations are made. LUNG BASES: No significant abnormality is appreciated. LIVER/GB: Cholecystectomy clips are redemonstrated. Common bile duct measures 8 mm diameter current s tudy less prominent versus prior, within normal limits currently after cholecystectomy on coronal estevan ge 35. PANCREAS: No significant abnormality is seen. SPLEEN: No significant abnormality is seen. ADRENALS: No significant abnormality is seen. KIDNEYS: No renal stones or hydronephrosis is evident on current study. No intraluminal calculus is s een in poorly distended bladder which is otherwise suboptimally evaluated. BOWEL: No suspicious small or large bowel dilatation. Normal-appearing appendix is seen in the right pelvis from base of cecum. GENITAL ORGANS: Anteverted uterus is seen. LYMPH NODES: No greater than 1cm abdominal or pelvic lymph nodes are appreciated. OSSEOUS STRUCTURES: No significant abnormality is seen. OTHER: No significant additional abnormality is seen. IMPRESSION: No renal stones or hydronephrosis is seen bilaterally on current study. No significant ac momo finding identified.
== END | disposition home or self-care (01) ==
LOC: RADCTMAIN 08:00
PROVIDERS: ATTEND Family Medicine
DX: R10.9 Unspecified abdominal pain (principal); Z88.6 Allergy status to analgesic agent; Z88.8 Allergy status to other drugs, medicaments and biological substances
CPT/HCPCS: 74176

== ENCOUNTER 2017-08-03 22:04 | Emergency (ER) | payer OTHER ==
[2017-08-03 22:10] VITALS: RESP 18
--- NOTE | 2017-08-03 22:36 | XR ---
EXAM: Single view of the knee CLINICAL HISTORY: : Pain TECHNIQUE: Single view of the right knee, AP COMPARISON: No relevant prior studies available. FINDINGS: Bones/joints: Unremarkable. No acute fracture. No dislocation. Soft tissues: Unremarkable. IMPRESSION: Unremarkable single view of the knee.
--- NOTE | 2017-08-03 23:18 | ED ---
Lower Extremity Injury HPI - General Chief Complaint: Extremity Injury, Lower Stated Complaint: Knee Injury Time Seen by Provider: 08/03/17 22:59 Source: patient Mode of arrival: ambulatory Limitations: no limitations - History of Present Illness Initial Comments: This patient is a 37-year-old woman who presents to have an evaluation of her right knee. She states that probably about 3 hours ago she was attempting to close a car door, but as her hands were full she used her knee. She states that the door handle struck her just above the patella and she subsequently developed pain and swelling there. She is able to bear some weight. She states the pain gets slightly worse if she attempts to fully straighten her leg. She denies other worsening or relieving factors. She denies previous injury or surgery to the leg. MD Complaint: knee injury Onset/Timin -: hour(s) Injury: Knee: Right Type of Injury: blunt Severity: moderate Worsens With: nothing Context: direct blow Associated Symptoms: able to partially bear weight Treatments Prior to Arrival: cold therapy - Related Data Home Medications Medication Instructions Recorded Confirmed DULoxetine HCL [Cymbalta] 60 mg PO DAILY 08/03/17 08/03/17 Levothyroxine Sodium [Synthroid] 50 mcg PO DAILY 08/03/17 08/03/17 QUEtiapine [SEROquel] 25 mg PO HS 08/03/17 08/03/17 Previous Rx's Medication Instructions Recorded Ibuprofen [Motrin] 600 mg PO Q8HR PRN #20 tab 08/03/17 Allergies Allergy/AdvReac Type Severity Reaction Status Date / Time carbamazepine [From Tegretol] Allergy Rash/Hives Verified 08/03/17 22:56 divalproex sodium Allergy Swelling Verified 08/03/17 22:56 [From Depakote] niacin Allergy Rash/Hives Verified 08/03/17 22:56 nifedipine [From Procardia] Allergy RASH & Verified 08/03/17 22:56 SWELLING diphenhydramine HCl AdvReac MUSCLE Verified 08/03/17 22:56 [From Benadryl] CRAMPS gabapentin [From Neurontin] AdvReac MAKES HER Verified 08/03/17 22:56 FEEL DRUNK pregabalin [From Lyrica] AdvReac MAKES HER Verified 08/03/17 22:56 FEEL DRUNK tramadol HCl [From Ultram] AdvReac SEIZURES Verified 08/03/17 22:56 seizure meds Allergy Rash/Hives Uncoded 08/03/17 22:10 VITAMIN B COMPLEX Allergy Rash/Hives Uncoded 08/03/17 22:10 Review of Systems ROS Statement: Those systems with pertinent positive or pertinent negative responses have been documented in the HPI. ROS Other: All systems not noted in ROS Statement are negative. Constitutional: Denies: weakness Musculoskeletal: Reports: as per HPI, joint swelling, arthralgia Skin: Denies: rash, lesions Neurological: Denies: weakness, numbness, paresthesias Past Medical History Past Medical History: Mitral Valve Prolapse (MVP), Seizure Disorder, Thyroid Disorder Additional Past Medical History / Comment(s): CHRONIC NECK AND SHOULDER PAIN, HX KIDNEY STONES, ABD HERNIA, NARCOLEPSY, HX SEIZURE X 1 2012, recent injury to tendon right thumb, endometriosis, History of Any Multi-Drug Resistant Organisms: None Reported Past Surgical History: Section, Cholecystectomy, Tubal Ligation Additional Past Surgical History / Comment(s): TL X 2, Past Anesthesia/Blood Transfusion Reactions: No Reported Reaction Past Psychological History: Anxiety, Depression Smoking Status: Current some day smoker Past Alcohol Use History: None Reported Past Drug Use History: Opiates - Past Family History Father Additional Family Medical History / Comment(s): BACK PROBLEMS,DEPRESSION- COMMITED SUICIDE @ AGE 53 Mother Family Medical History: Osteoarthritis (OA) Additional Family Medical History / Comment(s): COLITIS General Exam Limitations: no limitations Cardiovascular Exam: Present: other (Pedal pulses to the right foot are normal. The capillary refill.) Extremities exam: Present: full ROM, tenderness, normal capillary refill, other (There is a contusion to the anterior aspect of the right leg just proximal to the right patella. No bony tenderness or deformity. No ligamentous laxity. Neurovascular exam distal to the injury is normal.). Absent: normal inspection , calf tenderness Neurological exam: Present: alert. Absent: motor sensory deficit Skin exam: Present: warm, dry, intact, normal color. Absent: rash Course Vital Signs 08/03/17 22:05 Temperature 100.3 F H Pulse Rate 104 H Respiratory 18 Rate Blood Pressure 119/78 O2 Sat by Pulse 100 Oximetry Disposition Clinical Impression: Contusion of knee, right Disposition: HOME SELF-CARE Condition: Good Instructions: Knee Pain (ED) Prescriptions: Ibuprofen [Motrin] 600 mg PO Q8HR PRN #20 tab PRN Reason: Pain Is patient prescribed a controlled substance at d/c from ED?: No Referrals: Charles Fried Jr, [Primary Care Provider] - 1-2 days
[2017-08-03 23:33] VITALS: BP 108/66; PULSE 94; TEMP 97.8
== END 2017-08-03 23:32 | disposition home or self-care (01) ==
LOC: EC 22:04
DX: S80.01XA Contusion of right knee, initial encounter (principal); E07.9 Disorder of thyroid, unspecified; F32.9 Major depressive disorder, single episode, unspecified; F41.9 Anxiety disorder, unspecified; F17.200 Nicotine dependence, unspecified, uncomplicated; Z79.899 Other long term (current) drug therapy; Z88.1 Allergy status to other antibiotic agents; Z88.6 Allergy status to analgesic agent; Z88.8 Allergy status to other drugs, medicaments and biological substances; W22.8XXA Striking against or struck by other objects, initial encounter
CPT/HCPCS: 99283

== ENCOUNTER → 2017-10-23 | Outpatient (CLI) | payer OTHER ==
[2017-10-23 14:36] LABS: Basophils % (A) 0 %; Eosinophils # (A) 0.1 k/uL (0-0.7); Eosinophils % (A) 2 %; HCT 40.2 % (34.0-46.0); HGB 12.4 gm/dL (11.4-16.0); Lymphocytes # (A) 1.6 k/uL (1.0-4.8); Lymphocytes % (A) 28 %; MCH 28.4 pg (25.0-35.0); MCHC 30.9 g/dL (31.0-37.0); Mean Platelet Volume 9.3; Monocytes # (A) 0.3 k/uL (0-1.0); Monocytes % (A) 4 %; Neutrophils # (A) 3.7 k/uL (1.3-7.7); Neutrophils % (A) 64 %; Platelet Count 181 k/uL (150-450); RBC 4.37 m/uL (3.80-5.40); RDW 13.7 % (11.5-15.5); WBC 5.8 k/uL (3.8-10.6)
[2017-10-23 14:56] LABS: ALT 35 U/L (9-52); AST 28 U/L (14-36); Albumin 3.5 g/dL (3.5-5.0); Alkaline Phosphatase 45 U/L (38-126); Anion Gap 5 mmol/L; Bilirubin, Delta 0.3 mg/dL (0.0-0.2); Blood Urea Nitrogen 10 mg/dL (7-17); Calcium 8.8 mg/dL (8.4-10.2); Carbon Dioxide 27 mmol/L (22-30); Chloride 106 mmol/L (98-107); Glucose 80 mg/dL (74-99); Potassium 4.7 mmol/L (3.5-5.1); Sodium 138 mmol/L (137-145); Total Bilirubin 0.3 mg/dL (0.2-1.3); Total Protein 5.5 g/dL (6.3-8.2)
[2017-10-23 20:25] LABS: Hepatitis C IgG Antibody Non-Reactive (Non-Reactive)
== END | disposition home or self-care (01) ==
LOC: LABWHC1 14:11
PROVIDERS: ATTEND Family Medicine
DX: F33.1 Major depressive disorder, recurrent, moderate (principal); R23.3 Spontaneous ecchymoses; E03.9 Hypothyroidism, unspecified
CPT/HCPCS: 36415; 80048; 80076; 84134; 84443; 85025; 86803

== ENCOUNTER → 2018-01-02 | Outpatient (CLI) | payer OTHER ==
--- NOTE | 2018-01-02 09:36 | US ---
EXAMINATION TYPE: US thyroid st tissue head/neck DATE OF EXAM: 01/02/2018 COMPARISON: NONE CLINICAL HISTORY: Enlarged left thyroid per patient . GLAND SIZE: Right Lobe: 5.1 x 1.4 x 1.6 cm Overall Parenchyma: heterogenous Left Lobe: 4.3 x 0.9 x 1.5 cm Overall Parenchyma: heterogeneous Isthmus Thickness: 0.3 cm NODULES RIGHT: # of nodules measured on right: 0 LEFT: # of nodules measured on left: 0 ISTHMUS: # of nodules measured in the isthmus: 0 Right lobe measures upper limits of normal. Bilateral hypervascular thyroid glands. Within the left n duc, there is a probable lymph node visualized measuring 1.5 x 0.5 x 0.7 cm IMPRESSION: Nonspecific glandular vascularity. The mild enlargement right thyroid lobe.
== END | disposition home or self-care (01) ==
LOC: RADUSWWP 08:27
PROVIDERS: ATTEND Internal Medicine
DX: E04.9 Nontoxic goiter, unspecified (principal)
CPT/HCPCS: 76536

== ENCOUNTER → 2018-04-02 | Outpatient (CLI) | payer OTHER ==
--- NOTE | 2018-04-02 15:13 | US ---
EXAMINATION TYPE: US thyroid st tissue head/neck DATE OF EXAM: 04/02/2018 COMPARISON: US 01/02/2018 CLINICAL HISTORY: R22.1 Neck mass and lump. GLAND SIZE: Right Lobe: 5.1 x 1.3 x 1.3 cm Overall Parenchyma: homogenous Left Lobe: 4.5 x 1.0 x 1.6 cm Overall Parenchyma: homogeneous Isthmus Thickness: 0.2 cm NODULES RIGHT: # of nodules measured on right: 0 LEFT: # of nodules measured on left: 0 ISTHMUS: # of nodules measured in the isthmus: 0 Bilateral neck scanned, no evidence of lymphadenopathy. Asymmetric slight increased size of right thyroid versus left thyroid is redemonstrated. Thyroid colby ins overall within normal limits in size and homogeneous in appearance without discrete nodule. IMPRESSION: As above, no suspicious nodules are seen.
== END ==
LOC: RADUSWWP 14:54
PROVIDERS: ATTEND Internal Medicine
DX: R22.1 Localized swelling, mass and lump, neck (principal)
CPT/HCPCS: 76536

== ENCOUNTER 2018-04-21 01:37 | Emergency (ER) | payer OTHER ==
[2018-04-21] MEDS ORDERED: IPRATROPIUM-ALBUTEROL 3 ML NEB INHALATION STA (02:10)
[2018-04-21] MEDS ORDERED: SODIUM CHLORIDE 0.9% 1,000 ML IV STA (02:10)
[2018-04-21] MEDS ORDERED: methylPREDNISolone SOD SUCCI 125 MG/2 ML VIAL IV STA (02:10)
[2018-04-21 02:39] LABS: Basophils % (A) 0 %; Eosinophils # (A) 0.1 k/uL (0-0.7); Eosinophils % (A) 1 %; HCT 36.8 % (34.0-46.0); HGB 12.2 gm/dL (11.4-16.0); Lymphocytes # (A) 1.2 k/uL (1.0-4.8); Lymphocytes % (A) 11 %; MCH 29.4 pg (25.0-35.0); MCHC 33.2 g/dL (31.0-37.0); MCV 88.6 fL (80.0-100.0); Mean Platelet Volume 8.6; Monocytes # (A) 0.6 k/uL (0-1.0); Monocytes % (A) 6 %; Neutrophils # (A) 8.8 k/uL (1.3-7.7); Neutrophils % (A) 81 %; Platelet Count 307 k/uL (150-450); RBC 4.15 m/uL (3.80-5.40); RDW 13.3 % (11.5-15.5); WBC 10.8 k/uL (3.8-10.6)
[2018-04-21 02:45] LABS: Potassium 4.2 mmol/L (3.5-5.1)
[2018-04-21 02:48] LABS: Anion Gap 10 mmol/L; Blood Urea Nitrogen 6 mg/dL (7-17); Calcium 8.7 mg/dL (8.4-10.2); Carbon Dioxide 28 mmol/L (22-30); Chloride 102 mmol/L (98-107); Glucose 109 mg/dL (74-99); Sodium 140 mmol/L (137-145)
--- NOTE | 2018-04-21 02:51 | XR ---
EXAM: XR Chest, 2 Views CLINICAL HISTORY: Pain TECHNIQUE: Frontal and lateral views of the chest. COMPARISON: Chest x-ray dated 08/27/2015 FINDINGS: Lungs: Opacity in the medial right lower lung which may be inflammatory or infectious. Pleural space: Unremarkable. No pneumothorax. Heart: Unremarkable. No cardiomegaly. Mediastinum: Unremarkable. Bones/joints: Unremarkable. IMPRESSION: Opacity in the medial right lower lung which may be inflammatory or infectious.
--- NOTE | 2018-04-21 02:53 | ED ---
URI HPI - General Chief Complaint: Upper Respiratory Infection Stated Complaint: shoulder/back pain Time Seen by Provider: 04/21/18 01:52 Source: patient, RN notes reviewed, old records reviewed Mode of arrival: ambulatory Limitations: no limitations - History of Present Illness Initial Comments: 37 rolled female presents emergency room today with 1 month of complaint of cough congestion. She contacted today complains of right shoulder pain read on her arm. Patient states that she has had fevers today. She reports her cough has been productive. She is a smoker. - Related Data Home Medications Medication Instructions Recorded Confirmed DULoxetine HCL [Cymbalta] 60 mg PO DAILY 08/03/17 01/17/18 Levothyroxine Sodium [Synthroid] 50 mcg PO DAILY 08/03/17 01/17/18 QUEtiapine [SEROquel] 12.5 mg PO HS 08/03/17 01/17/18 Azithromycin [Zithromax Z-pack] See Taper PO DIRECTED 01/17/18 01/17/18 Previous Rx's Medication Instructions Recorded Albuterol Inhaler [Ventolin Hfa 1 - 2 puff INHALATION Q6HR PRN #1 01/17/18 Inhaler] inhaler Benzonatate [Tessalon Perles] 200 mg PO Q8H PRN #15 capsule 01/17/18 predniSONE 50 mg PO DAILY #5 tablet 01/17/18 Azithromycin [Zithromax Z-pack] 250 mg PO DIRECTED #6 tab 04/21/18 predniSONE 50 mg PO DAILY #5 tablet 04/21/18 Allergies Allergy/AdvReac Type Severity Reaction Status Date / Time carbamazepine [From Tegretol] Allergy Rash/Hives Verified 04/21/18 01:43 divalproex sodium Allergy Swelling Verified 04/21/18 01:43 [From Depakote] niacin Allergy Rash/Hives Verified 04/21/18 01:43 nifedipine [From Procardia] Allergy RASH & Verified 04/21/18 01:43 SWELLING diphenhydramine HCl AdvReac MUSCLE Verified 04/21/18 01:43 [From Benadryl] CRAMPS gabapentin [From Neurontin] AdvReac MAKES HER Verified 04/21/18 01:43 FEEL DRUNK pregabalin [From Lyrica] AdvReac MAKES HER Verified 04/21/18 01:43 FEEL DRUNK tramadol HCl [From Ultram] AdvReac SEIZURES Verified 04/21/18 01:43 seizure meds Allergy Rash/Hives Uncoded 04/21/18 01:43 VITAMIN B COMPLEX Allergy Rash/Hives Uncoded 04/21/18 01:43 Review of Systems ROS Statement: Those systems with pertinent positive or pertinent negative responses have been documented in the HPI. ROS Other: All systems not noted in ROS Statement are negative. Past Medical History Past Medical History: Mitral Valve Prolapse (MVP), Seizure Disorder, Thyroid Disorder Additional Past Medical History / Comment(s): CHRONIC NECK AND SHOULDER PAIN, HX KIDNEY STONES, ABD HERNIA, NARCOLEPSY, HX SEIZURE X 1 2012, recent injury to tendon right thumb, endometriosis, History of Any Multi-Drug Resistant Organisms: None Reported Past Surgical History: Section, Cholecystectomy, Tubal Ligation Additional Past Surgical History / Comment(s): TL X 2, Past Anesthesia/Blood Transfusion Reactions: No Reported Reaction Past Psychological History: Anxiety, Depression Smoking Status: Current some day smoker Past Alcohol Use History: None Reported Past Drug Use History: Opiates - Past Family History Father Additional Family Medical History / Comment(s): BACK PROBLEMS,DEPRESSION- COMMITED SUICIDE @ AGE 53 Mother Family Medical History: Osteoarthritis (OA) Additional Family Medical History / Comment(s): COLITIS General Exam - General Exam Comments Initial Comments: 37 year old female, mild discomfort. Limitations: no limitations General appearance: alert, in no apparent distress Head exam: Present: atraumatic, normocephalic, normal inspection Eye exam: Present: normal appearance, PERRL, EOMI. Absent: scleral icterus, conjunctival injection, periorbital swelling ENT exam: Present: normal exam, mucous membranes moist Neck exam: Present: normal inspection. Absent: tenderness, meningismus, lymphadenopathy Respiratory exam: Present: wheezes, other (significant cough). Absent: normal lung sounds bilaterally, respiratory distress, rales, rhonchi, stridor Cardiovascular Exam: Present: regular rate, normal rhythm, normal heart sounds. Absent: systolic murmur, diastolic murmur, rubs, gallop, clicks GI/Abdominal exam: Present: soft, normal bowel sounds. Absent: distended, tenderness, guarding, rebound, rigid Extremities exam: Present: normal inspection, full ROM, normal capillary refill. Absent: tenderness, pedal edema, joint swelling, calf tenderness Back exam: Present: normal inspection Neurological exam: Present: alert, oriented X3, CN II-XII intact Psychiatric exam: Present: normal affect, normal mood Skin exam: Present: warm, dry, intact, normal color. Absent: rash Course Vital Signs 04/21/18 04/21/18 04/21/18 01:40 01:56 02:40 Temperature 99 F Pulse Rate 120 H 108 H Respiratory 20 22 Rate Blood Pressure 107/75 O2 Sat by Pulse 99 Oximetry 04/21/18 04/21/18 04/21/18 02:54 03:02 04:12 Temperature 98 F Pulse Rate 112 H 102 H 98 Respiratory 18 18 Rate Blood Pressure 107/69 109/79 O2 Sat by Pulse 99 98 Oximetry Medical Decision Making - Medical Decision Making 37 year old female with cough, R shoulder pain, and fevers. CXR shows R middle lobe pneumonia. Given Breathing treatment with improvment of aeration, and wheezing. Given IV solumedrol, and 1 Gr. Rocephin. Labs are unremarkable. Influenza is negative. Will DC with steriods nad antibiotics. Discussed return parameters. - Lab Data Result diagrams: 04/21/18 02:20 04/21/18 02:20 Lab Results 04/21/18 04/21/18 04/21/18 Range/Units 01:55 02:20 02:20 WBC 10.8 H (3.8-10.6) k/uL RBC 4.15 (3.80-5.40) m/uL Hgb 12.2 (11.4-16.0) gm/dL Hct 36.8 (34.0-46.0) % MCV 88.6 (80.0-100.0) fL MCH 29.4 (25.0-35.0) pg MCHC 33.2 (31.0-37.0) g/dL RDW 13.3 (11.5-15.5) % Plt Count 307 (150-450) k/uL Neutrophils % 81 % Lymphocytes % 11 % Monocytes % 6 % Eosinophils % 1 % Basophils % 0 % Neutrophils # 8.8 H (1.3-7.7) k/uL Lymphocytes # 1.2 (1.0-4.8) k/uL Monocytes # 0.6 (0-1.0) k/uL Eosinophils # 0.1 (0-0.7) k/uL Basophils # 0.0 (0-0.2) k/uL D-Dimer (<0.60) mg/L FEU Sodium 140 (137-145) mmol/L Potassium 4.2 (3.5-5.1) mmol/L Chloride 102 (98-107) mmol/L Carbon Dioxide 28 (22-30) mmol/L Anion Gap 10 mmol/L BUN 6 L (7-17) mg/dL Creatinine 0.66 (0.52-1.04) mg/dL Est GFR (CKD-EPI)AfAm >90 (>60 ml/min/1.73 sqM) Est GFR (CKD-EPI)NonAf >90 (>60 ml/min/1.73 sqM) Glucose 109 H (74-99) mg/dL Calcium 8.7 (8.4-10.2) mg/dL Influenza Type A RNA Not Detected (Not Detectd) Influenza Type B (PCR) Not Detected (Not Detectd) 04/21/18 Range/Units 02:20 WBC (3.8-10.6) k/uL RBC (3.80-5.40) m/uL Hgb (11.4-16.0) gm/dL Hct (34.0-46.0) % MCV (80.0-100.0) fL MCH (25.0-35.0) pg MCHC (31.0-37.0) g/dL RDW (11.5-15.5) % Plt Count (150-450) k/uL Neutrophils % % Lymphocytes % % Monocytes % % Eosinophils % % Basophils % % Neutrophils # (1.3-7.7) k/uL Lymphocytes # (1.0-4.8) k/uL Monocytes # (0-1.0) k/uL Eosinophils # (0-0.7) k/uL Basophils # (0-0.2) k/uL D-Dimer 0.51 (<0.60) mg/L FEU Sodium (137-145) mmol/L Potassium (3.5-5.1) mmol/L Chloride (98-107) mmol/L Carbon Dioxide (22-30) mmol/L Anion Gap mmol/L BUN (7-17) mg/dL Creatinine (0.52-1.04) mg/dL Est GFR (CKD-EPI)AfAm (>60 ml/min/1.73 sqM) Est GFR (CKD-EPI)NonAf (>60 ml/min/1.73 sqM) Glucose (74-99) mg/dL Calcium (8.4-10.2) mg/dL Influenza Type A RNA (Not Detectd) Influenza Type B (PCR) (Not Detectd) - Radiology Data Radiology results: report reviewed Opacity in the medial right lower lung which may be inflammatory infectious. Disposition Clinical Impression: Pleurisy, Pneumonia Disposition: HOME SELF-CARE Condition: Good Instructions (If sedation given, give patient instructions): Pleurisy (ED) Additional Instructions: Follow up with PCP and return to ED if any alarming signs or symptoms occur. Use inhaler and take OTC decongestant. Prescriptions: Azithromycin [Zithromax Z-pack] 250 mg PO DIRECTED #6 tab predniSONE 50 mg PO DAILY #5 tablet Is patient prescribed a controlled substance at d/c from ED?: No Referrals: Hanh Billingsley MD [Primary Care Provider] - 1-2 days Time of Disposition: 03:49
[2018-04-21 03:04] VITALS: RESP 18
[2018-04-21 04:15] VITALS: BP 109/79; PULSE 98; TEMP 98
== END 2018-04-21 04:15 | disposition home or self-care (01) ==
LOC: EC 01:37
DX: J18.9 Pneumonia, unspecified organism (principal); R09.1 Pleurisy; M25.511 Pain in right shoulder; M54.9 Dorsalgia, unspecified; E07.9 Disorder of thyroid, unspecified; F41.9 Anxiety disorder, unspecified; F32.9 Major depressive disorder, single episode, unspecified; F17.200 Nicotine dependence, unspecified, uncomplicated; Z79.890 Hormone replacement therapy; Z79.899 Other long term (current) drug therapy; Z88.8 Allergy status to other drugs, medicaments and biological substances; Z88.5 Allergy status to narcotic agent
CPT/HCPCS: 36415; 94640; 85379; 80048; 85025; 87502; 71046; 99284; 96365; 96375; 96361; J2930; J0696

== ENCOUNTER 2018-05-01 12:57 | Emergency (ER) | payer OTHER ==
[2018-05-01] MEDS ORDERED: KETOROLAC 60 MG/2 ML VIAL IVP STA (13:37)
--- NOTE | 2018-05-01 13:42 | ED ---
General Adult HPI - General Chief complaint: Upper Respiratory Infection Stated complaint: Pneumonia Time Seen by Provider: 05/01/18 13:00 Source: patient, RN notes reviewed Mode of arrival: ambulatory Limitations: no limitations - History of Present Illness Initial comments: This is a 37-year-old female presents emergency department stating that she was diagnosed with pneumonia approximately 11 days ago and she continues to have right-sided pleuritic chest pain. Patient states every time she takes deep breath it hurts under her right breast and in her back. Patient states she still coughs. Patient denies sputum production. Patient denies any palpitation. Patient denies any chest discomfort. Patient denies any recent fever chills. Patient denies any headache patient denies numbness weakness per patient denies any lightheadedness dizziness or near syncopal episode. Patient denies any abdominal pain patient denies any nausea vomiting diarrhea. - Related Data Home Medications Medication Instructions Recorded Confirmed Levothyroxine Sodium [Synthroid] 50 mcg PO DAILY 08/03/17 05/01/18 Megestrol Acetate 40 mg PO BID 05/01/18 05/01/18 Multivitamins, Thera [Multivitamin 1 tab PO DAILY 05/01/18 05/01/18 (formulary)] Previous Rx's Medication Instructions Recorded Ketorolac [Toradol] 10 mg PO Q6HR #15 tab 05/01/18 Allergies Allergy/AdvReac Type Severity Reaction Status Date / Time carbamazepine [From Tegretol] Allergy Rash/Hives Verified 05/01/18 13:40 divalproex sodium Allergy Swelling Verified 05/01/18 13:40 [From Depakote] niacin Allergy Rash/Hives Verified 05/01/18 13:40 nifedipine [From Procardia] Allergy RASH & Verified 05/01/18 13:40 SWELLING diphenhydramine HCl AdvReac MUSCLE Verified 05/01/18 13:40 [From Benadryl] CRAMPS gabapentin [From Neurontin] AdvReac MAKES HER Verified 05/01/18 13:40 FEEL DRUNK pregabalin [From Lyrica] AdvReac MAKES HER Verified 05/01/18 13:40 FEEL DRUNK tramadol HCl [From Ultram] AdvReac SEIZURES Verified 05/01/18 13:40 seizure meds Allergy Rash/Hives Uncoded 05/01/18 13:01 VITAMIN B COMPLEX Allergy Rash/Hives Uncoded 05/01/18 13:01 Review of Systems ROS Statement: Those systems with pertinent positive or pertinent negative responses have been documented in the HPI. ROS Other: All systems not noted in ROS Statement are negative. Past Medical History Past Medical History: Mitral Valve Prolapse (MVP), Seizure Disorder, Thyroid Disorder Additional Past Medical History / Comment(s): CHRONIC NECK AND SHOULDER PAIN, HX KIDNEY STONES, ABD HERNIA, NARCOLEPSY, HX SEIZURE X 1 2012, recent injury to tendon right thumb, endometriosis, History of Any Multi-Drug Resistant Organisms: None Reported Past Surgical History: Section, Cholecystectomy, Tubal Ligation Additional Past Surgical History / Comment(s): TL X 2, Past Anesthesia/Blood Transfusion Reactions: No Reported Reaction Past Psychological History: Anxiety, Depression Smoking Status: Current some day smoker Past Alcohol Use History: None Reported Past Drug Use History: Opiates - Past Family History Father Additional Family Medical History / Comment(s): BACK PROBLEMS,DEPRESSION- COMMITED SUICIDE @ AGE 53 Mother Family Medical History: Osteoarthritis (OA) Additional Family Medical History / Comment(s): COLITIS General Exam - General Exam Comments Initial Comments: GENERAL: Patient is well-developed and well-nourished. Patient is nontoxic and well- hydrated and is in mild distress. ENT: Neck is soft and supple. No significant lymphadenopathy is noted. Oropharynx is clear. Moist mucous membranes. Neck has full range of motion without eliciting any pain. EYES: The sclera were anicteric and conjunctiva were pink and moist. Extraocular movements were intact and pupils were equal round and reactive to light. Eyelids were unremarkable. PULMONARY: Unlabored respirations. Good breath sounds bilaterally. No audible rales rhonchi or wheezing was noted. CARDIOVASCULAR: There is a regular rate and rhythm without any murmurs gallops or rubs. ABDOMEN: Soft and nontender with normal bowel sounds. No palpable organomegaly was noted. There is no palpable pulsatile mass. SKIN: Skin is clear with no lesions or rashes and otherwise unremarkable. NEUROLOGIC: Patient is alert and oriented x3. Cranial nerves II through XII are grossly intact. Motor and sensory are also intact. Normal speech, volume and content. Symmetrical smile. MUSCULOSKELETAL: Normal extremities with adequate strength and full range of motion. No lower extremity swelling or edema. No calf tenderness. LYMPHATICS: No significant lymphadenopathy is noted PSYCHIATRIC: Normal psychiatric evaluation. Limitations: no limitations Course Vital Signs 05/01/18 05/01/18 12:58 14:14 Temperature 98.3 F 98.0 F Pulse Rate 102 H 71 Respiratory 16 14 Rate Blood Pressure 122/81 O2 Sat by Pulse 100 97 Oximetry Medical Decision Making - Medical Decision Making chest x-ray shows no acute abnormality. X-rays improvement previous x-ray. - Lab Data Result diagrams: 05/01/18 14:02 05/01/18 14:02 Lab Results 05/01/18 05/01/18 05/01/18 Range/Units 14:02 14:02 14:02 WBC 4.6 (3.8-10.6) k/uL RBC 4.35 (3.80-5.40) m/uL Hgb 12.5 (11.4-16.0) gm/dL Hct 38.7 (34.0-46.0) % MCV 88.9 (80.0-100.0) fL MCH 28.7 (25.0-35.0) pg MCHC 32.3 (31.0-37.0) g/dL RDW 13.5 (11.5-15.5) % Plt Count 252 (150-450) k/uL Neutrophils % 55 % Lymphocytes % 34 % Monocytes % 6 % Eosinophils % 4 % Basophils % 0 % Neutrophils # 2.5 (1.3-7.7) k/uL Lymphocytes # 1.6 (1.0-4.8) k/uL Monocytes # 0.3 (0-1.0) k/uL Eosinophils # 0.2 (0-0.7) k/uL Basophils # 0.0 (0-0.2) k/uL D-Dimer 0.19 (<0.60) mg/L FEU Sodium 140 (137-145) mmol/L Potassium 4.2 (3.5-5.1) mmol/L Chloride 106 (98-107) mmol/L Carbon Dioxide 28 (22-30) mmol/L Anion Gap 6 mmol/L BUN 10 (7-17) mg/dL Creatinine 0.70 (0.52-1.04) mg/dL Est GFR (CKD-EPI)AfAm >90 (>60 ml/min/1.73 sqM) Est GFR (CKD-EPI)NonAf >90 (>60 ml/min/1.73 sqM) Glucose 100 H (74-99) mg/dL Calcium 8.5 (8.4-10.2) mg/dL Total Bilirubin 0.4 (0.2-1.3) mg/dL AST 19 (14-36) U/L ALT 26 (9-52) U/L Alkaline Phosphatase 47 (38-126) U/L Total Protein 6.2 L (6.3-8.2) g/dL Albumin 3.6 (3.5-5.0) g/dL Disposition Clinical Impression: Pleuritic chest pain Disposition: HOME SELF-CARE Instructions (If sedation given, give patient instructions): Pleurisy (ED) Prescriptions: Ketorolac [Toradol] 10 mg PO Q6HR #15 tab Is patient prescribed a controlled substance at d/c from ED?: No Referrals: Hanh Billingsley MD [Primary Care Provider] - 1-2 days Time of Disposition: 14:46
[2018-05-01 14:16] LABS: Basophils % (A) 0 %; Eosinophils # (A) 0.2 k/uL (0-0.7); Eosinophils % (A) 4 %; HCT 38.7 % (34.0-46.0); HGB 12.5 gm/dL (11.4-16.0); Lymphocytes # (A) 1.6 k/uL (1.0-4.8); Lymphocytes % (A) 34 %; MCH 28.7 pg (25.0-35.0); MCHC 32.3 g/dL (31.0-37.0); MCV 88.9 fL (80.0-100.0); Mean Platelet Volume 7.7; Monocytes # (A) 0.3 k/uL (0-1.0); Monocytes % (A) 6 %; Neutrophils # (A) 2.5 k/uL (1.3-7.7); Neutrophils % (A) 55 %; Platelet Count 252 k/uL (150-450); RBC 4.35 m/uL (3.80-5.40); RDW 13.5 % (11.5-15.5); WBC 4.6 k/uL (3.8-10.6)
[2018-05-01 14:25] LABS: ALT 26 U/L (9-52); AST 19 U/L (14-36); Albumin 3.6 g/dL (3.5-5.0); Alkaline Phosphatase 47 U/L (38-126); Anion Gap 6 mmol/L; Blood Urea Nitrogen 10 mg/dL (7-17); Calcium 8.5 mg/dL (8.4-10.2); Carbon Dioxide 28 mmol/L (22-30); Chloride 106 mmol/L (98-107); Glucose 100 mg/dL (74-99); Potassium 4.2 mmol/L (3.5-5.1); Sodium 140 mmol/L (137-145); Total Bilirubin 0.4 mg/dL (0.2-1.3); Total Protein 6.2 g/dL (6.3-8.2)
--- NOTE | 2018-05-01 14:35 | XR ---
EXAMINATION TYPE: XR chest 2V DATE OF EXAM: 05/01/2018 COMPARISON: Prior chest x-ray 04/21/2018 HISTORY: Difficulty breathing, pneumonia TECHNIQUE: Frontal and lateral views of the chest are obtained. FINDINGS: There is no focal air space opacity, pleural effusion, or pneumothorax seen. The cardiac silhouette size is within normal limits. The osseous structures are intact. IMPRESSION: Interval improvement in aeration
[2018-05-01 15:25] VITALS: BP 99/76; PULSE 94; RESP 18; TEMP 98.9
== END 2018-05-01 15:24 | disposition home or self-care (01) ==
LOC: EC 12:57
DX: R07.81 Pleurodynia (principal); E07.9 Disorder of thyroid, unspecified; N80.9 Endometriosis, unspecified; F17.200 Nicotine dependence, unspecified, uncomplicated; Z87.01 Personal history of pneumonia (recurrent); Z86.79 Personal history of other diseases of the circulatory system; Z79.890 Hormone replacement therapy; Z88.8 Allergy status to other drugs, medicaments and biological substances; Z88.5 Allergy status to narcotic agent
CPT/HCPCS: 36415; 71046; 80053; 85025; 85379; 96374; 99284

== ENCOUNTER 2018-09-23 09:01 | Emergency (ER) | payer OTHER ==
[2018-09-23] MEDS ORDERED: ALPRAZolam 0.5 MG TAB PO STA (09:46)
[2018-09-23] MEDS ORDERED: ASPIRIN 81 MG PO STA (09:46)
--- NOTE | 2018-09-23 09:48 | ED ---
General Adult HPI - General Chief complaint: Chest Pain Stated complaint: chest pain Time Seen by Provider: 09/23/18 09:22 Source: patient Mode of arrival: wheelchair Limitations: no limitations - History of Present Illness Initial comments: Dictation was produced using [employer] dictation software. please excuse any grammatical, word or spelling errors. Chief Complaint: 38-year-old female presents with chest pain 2 hours. History of Present Illness: She is 38-year-old female presents with chest pain 2 hours. Patient states that she is a recovering opiate addict. She has not had any opiates in approximately 6 days. She presents today with chest pain. She reports it radiates to her left jaw. Denies any associated diaphoresis. No significant family history of cardiac disease. She is here today with a family member for concerns of ruling out heart attack. Patient is recovering opiate addict in reports that she is having significant withdrawal symptoms including insomnia and tremulousness. She requests something for anxiety as well. The ROS documented in this emergency department record has been reviewed and confirmed by me. Those systems with pertinent positive or negative responses have been documented in the HPI. All other systems are other negative and/or noncontributory. PHYSICAL EXAM: General Impression: Alert and oriented x3, not in acute distress HEENT: Normocephalic atraumatic, extra-ocular movements intact, pupils equal and reactive to light bilaterally, mucous membranes moist. Cardiovascular: Heart regular rate and rhythm, S1&S2 audible, no murmurs, rubs or gallops Chest: Lungs clear to auscultation bilaterally, no rhonchi, no wheeze, no rales Abdomen: Bowel sounds present, abdomen soft, non-tender, non-distended, no organomegaly Musculoskeletal: Pulses present and equal in all extremities, no peripheral edema Motor: no focal deficits noted Neurological: CN II-XII grossly intact, no focal motor or sensory deficits noted Skin: Intact with no visualized rashes Psych: Normal affect and mood ED course: 38-year-old female presents with chest pain. Signs upon arrival are within acceptable limits. EKG is laboratory evaluation obtained. CBC, coag panel, metabolic panel is unremarkable. Cardiac enzymes negative. Urine hCG is negative. Chest x-ray is nonacute. Patient notified of these results. Patient exhibiting drug-seeking behavior. Patient is well-appearing at this time. EKG is benign. Patient's pain is atypical. There are some signs of malingering. When notified of these results patient requesting food. She is given some anxiolytics. Patient clear for discharge. Return parameters discussed. Patient told to follow-up with her primary care physician. Clinical presentation consistent with chest pain. No high-risk features at this time. EKG interpretation: Ventricular rate 57, sinus bradycardia, MI interval 122, care is 12, QTc 4:30. No MI prolongation, no QTC prolongation, no ST or T-wave changes noted. . Overall, this EKG is unremarkable - Related Data Home Medications Medication Instructions Recorded Confirmed Levothyroxine Sodium [Synthroid] 50 mcg PO DAILY 08/03/17 09/23/18 DULoxetine HCL [Cymbalta] 60 mg PO DAILY 09/23/18 09/23/18 Ibuprofen [Motrin Ib] 400 mg PO Q6H PRN 09/23/18 09/23/18 Allergies Allergy/AdvReac Type Severity Reaction Status Date / Time carbamazepine [From Tegretol] Allergy Rash/Hives Verified 09/23/18 09:24 divalproex sodium Allergy Swelling Verified 09/23/18 09:24 [From Depakote] niacin Allergy Rash/Hives Verified 09/23/18 09:24 nifedipine [From Procardia] Allergy RASH & Verified 09/23/18 09:24 SWELLING diphenhydramine HCl AdvReac MUSCLE Verified 09/23/18 09:24 [From Benadryl] CRAMPS gabapentin [From Neurontin] AdvReac MAKES HER Verified 09/23/18 09:24 FEEL DRUNK pregabalin [From Lyrica] AdvReac MAKES HER Verified 09/23/18 09:24 FEEL DRUNK tramadol HCl [From Ultram] AdvReac SEIZURES Verified 09/23/18 09:24 seizure meds Allergy Rash/Hives Uncoded 09/23/18 09:07 VITAMIN B COMPLEX Allergy Rash/Hives Uncoded 09/23/18 09:07 Review of Systems ROS Statement: Those systems with pertinent positive or pertinent negative responses have been documented in the HPI. ROS Other: All systems not noted in ROS Statement are negative. Past Medical History Past Medical History: Mitral Valve Prolapse (MVP), Seizure Disorder, Thyroid Disorder Additional Past Medical History / Comment(s): CHRONIC NECK AND SHOULDER PAIN, HX KIDNEY STONES, ABD HERNIA, NARCOLEPSY, HX SEIZURE X 1 2012, recent injury to tendon right thumb, endometriosis, History of Any Multi-Drug Resistant Organisms: None Reported Past Surgical History: Section, Cholecystectomy, Tubal Ligation Additional Past Surgical History / Comment(s): TL X 2, Past Anesthesia/Blood Transfusion Reactions: No Reported Reaction Past Psychological History: Anxiety, Depression Smoking Status: Current some day smoker Past Alcohol Use History: None Reported Past Drug Use History: Opiates, Prescription Drug Abuse - Past Family History Father Additional Family Medical History / Comment(s): BACK PROBLEMS,DEPRESSION- COMMITED SUICIDE @ AGE 53 Mother Family Medical History: Osteoarthritis (OA) Additional Family Medical History / Comment(s): COLITIS General Exam Limitations: no limitations Course Vital Signs 09/23/18 09/23/18 09:04 11:38 Temperature 98.5 F Pulse Rate 78 85 Respiratory 16 16 Rate Blood Pressure 145/92 117/72 O2 Sat by Pulse 99 98 Oximetry Medical Decision Making - Lab Data Result diagrams: 09/23/18 10:07 09/23/18 10:07 Lab Results 09/23/18 09/23/18 09/23/18 Range/Units 10:07 10:07 10:07 WBC 5.1 (3.8-10.6) k/uL RBC 4.44 (3.80-5.40) m/uL Hgb 12.8 (11.4-16.0) gm/dL Hct 39.0 (34.0-46.0) % MCV 87.8 (80.0-100.0) fL MCH 28.8 (25.0-35.0) pg MCHC 32.8 (31.0-37.0) g/dL RDW 13.3 (11.5-15.5) % Plt Count 177 (150-450) k/uL Neutrophils % 62 % Lymphocytes % 29 % Monocytes % 5 % Eosinophils % 2 % Basophils % 0 % Neutrophils # 3.2 (1.3-7.7) k/uL Lymphocytes # 1.5 (1.0-4.8) k/uL Monocytes # 0.3 (0-1.0) k/uL Eosinophils # 0.1 (0-0.7) k/uL Basophils # 0.0 (0-0.2) k/uL PT 10.5 (9.0-12.0) sec INR 1.0 (<1.2) APTT 21.3 L (22.0-30.0) sec Sodium 139 (137-145) mmol/L Potassium 4.8 (3.5-5.1) mmol/L Chloride 107 (98-107) mmol/L Carbon Dioxide 24 (22-30) mmol/L Anion Gap 8 mmol/L BUN 7 (7-17) mg/dL Creatinine 0.58 (0.52-1.04) mg/dL Est GFR (CKD-EPI)AfAm >90 (>60 ml/min/1.73 sqM) Est GFR (CKD-EPI)NonAf >90 (>60 ml/min/1.73 sqM) Glucose 97 (74-99) mg/dL Calcium 9.3 (8.4-10.2) mg/dL Magnesium 1.9 (1.6-2.3) mg/dL Total Bilirubin 0.6 (0.2-1.3) mg/dL AST 24 (14-36) U/L ALT 17 (9-52) U/L Alkaline Phosphatase 42 (38-126) U/L Troponin I (0.000-0.034) ng/mL Total Protein 6.4 (6.3-8.2) g/dL Albumin 4.0 (3.5-5.0) g/dL Urine HCG, Qual (Not Detectd) 09/23/18 09/23/18 Range/Units 10:07 11:06 WBC (3.8-10.6) k/uL RBC (3.80-5.40) m/uL Hgb (11.4-16.0) gm/dL Hct (34.0-46.0) % MCV (80.0-100.0) fL MCH (25.0-35.0) pg MCHC (31.0-37.0) g/dL RDW (11.5-15.5) % Plt Count (150-450) k/uL Neutrophils % % Lymphocytes % % Monocytes % % Eosinophils % % Basophils % % Neutrophils # (1.3-7.7) k/uL Lymphocytes # (1.0-4.8) k/uL Monocytes # (0-1.0) k/uL Eosinophils # (0-0.7) k/uL Basophils # (0-0.2) k/uL PT (9.0-12.0) sec INR (<1.2) APTT (22.0-30.0) sec Sodium (137-145) mmol/L Potassium (3.5-5.1) mmol/L Chloride (98-107) mmol/L Carbon Dioxide (22-30) mmol/L Anion Gap mmol/L BUN (7-17) mg/dL Creatinine (0.52-1.04) mg/dL Est GFR (CKD-EPI)AfAm (>60 ml/min/1.73 sqM) Est GFR (CKD-EPI)NonAf (>60 ml/min/1.73 sqM) Glucose (74-99) mg/dL Calcium (8.4-10.2) mg/dL Magnesium (1.6-2.3) mg/dL Total Bilirubin (0.2-1.3) mg/dL AST (14-36) U/L ALT (9-52) U/L Alkaline Phosphatase (38-126) U/L Troponin I <0.012 (0.000-0.034) ng/mL Total Protein (6.3-8.2) g/dL Albumin (3.5-5.0) g/dL Urine HCG, Qual Not Detected (Not Detectd) Disposition Clinical Impression: Chest pain Disposition: HOME SELF-CARE Condition: Good Instructions (If sedation given, give patient instructions): Chest Pain (ED) Is patient prescribed a controlled substance at d/c from ED?: No Referrals: Hanh Billingsley MD [Primary Care Provider] - 1-2 days Time of Disposition: 12:15
[2018-09-23 10:28] LABS: Basophils % (A) 0 %; Eosinophils # (A) 0.1 k/uL (0-0.7); Eosinophils % (A) 2 %; HGB 12.8 gm/dL (11.4-16.0); Lymphocytes # (A) 1.5 k/uL (1.0-4.8); Lymphocytes % (A) 29 %; MCH 28.8 pg (25.0-35.0); MCHC 32.8 g/dL (31.0-37.0); MCV 87.8 fL (80.0-100.0); Mean Platelet Volume 8.7; Monocytes # (A) 0.3 k/uL (0-1.0); Monocytes % (A) 5 %; Neutrophils # (A) 3.2 k/uL (1.3-7.7); Neutrophils % (A) 62 %; Platelet Count 177 k/uL (150-450); RBC 4.44 m/uL (3.80-5.40); RDW 13.3 % (11.5-15.5); WBC 5.1 k/uL (3.8-10.6)
[2018-09-23 10:39] LABS: ALT 17 U/L (9-52); AST 24 U/L (14-36); African American GFR (CKD) >90 (>60 ml/min/1.73 sqM); Alkaline Phosphatase 42 U/L (38-126); Anion Gap 8 mmol/L; Blood Urea Nitrogen 7 mg/dL (7-17); Calcium 9.3 mg/dL (8.4-10.2); Carbon Dioxide 24 mmol/L (22-30); Chloride 107 mmol/L (98-107); Glucose 97 mg/dL (74-99); Magnesium 1.9 mg/dL (1.6-2.3); Sodium 139 mmol/L (137-145); Total Bilirubin 0.6 mg/dL (0.2-1.3); Total Protein 6.4 g/dL (6.3-8.2)
[2018-09-23 10:40] LABS: Potassium 4.8 mmol/L (3.5-5.1)
[2018-09-23 10:47] LABS: Prothrombin Time 10.5 sec (9.0-12.0)
[2018-09-23 11:04] LABS: Partial Thromboplastin Time 21.3 sec (22.0-30.0)
[2018-09-23] MEDS ORDERED: ALPRAZolam 1 MG TAB PO STA (11:39)
--- NOTE | 2018-09-23 12:03 | XR ---
EXAMINATION TYPE: XR chest 2V DATE OF EXAM: 09/23/2018 COMPARISON: NONE HISTORY: Chest pain TECHNIQUE: Frontal and lateral views of the chest are obtained. FINDINGS: There is no focal air space opacity. No evidence for pneumothorax. No pleural effusion. The cardiac silhouette size is within normal limits. The osseous structures are grossly intact. IMPRESSION: 1. No acute cardiopulmonary process.
[2018-09-23 12:35] VITALS: BP 123/86; PULSE 67; RESP 18; TEMP 98.6
== END 2018-09-23 12:34 | disposition home or self-care (01) ==
LOC: EC 09:01
DX: R07.89 Other chest pain (principal); F11.23 Opioid dependence with withdrawal; G47.00 Insomnia, unspecified; F41.9 Anxiety disorder, unspecified; F32.9 Major depressive disorder, single episode, unspecified; E07.9 Disorder of thyroid, unspecified; F17.200 Nicotine dependence, unspecified, uncomplicated; Z87.442 Personal history of urinary calculi; Z90.49 Acquired absence of other specified parts of digestive tract; Z98.51 Tubal ligation status; Z79.890 Hormone replacement therapy; Z79.899 Other long term (current) drug therapy; Z88.5 Allergy status to narcotic agent; Z88.8 Allergy status to other drugs, medicaments and biological substances
CPT/HCPCS: 36415; 71046; 80053; 81025; 83735; 84484; 85025; 85610; 85730; 93005; 99285

== ENCOUNTER 2019-02-17 13:01 | Emergency (ER) | payer OTHER ==
[2019-02-17 13:17] VITALS: TEMP 98.5
[2019-02-17] MEDS ORDERED: ONDANSETRON 4 MG ODT STARTER PACK 2 TAB BTL PO STA (14:17)
[2019-02-17] MEDS ORDERED: ONDANSETRON ODT 4 MG TAB PO STA (14:17)
[2019-02-17] MEDS ORDERED: DIAZEPAM 5 MG TAB PO STA (14:17)
--- NOTE | 2019-02-17 14:22 | ED ---
Anxiety HPI - General Chief Complaint: Recheck/Abnormal Lab/Rx Stated Complaint: withdrawals Time Seen by Provider: 02/17/19 13:34 Source: patient, RN notes reviewed, old records reviewed Mode of arrival: ambulatory - History of Present Illness Initial Comments: This is a 38-year-old female who complains if evaluation of possible drug withdrawal, she believes that she may return Kratom, patient is a known opiate addict heart primarily with opiates ever since her she was prescribed opiates she hasn't taken any pills and years but does take rated pretty religiously. No drugs or alcohol was prescribed to her. Patient states she has had occasional seizures and shaking from prior withdrawals but does not feel like there is can be a problem for her currently. MD Complaint: anxiety, heart racing -: days(s) Symptoms: extremity numbness/tingling Place: home Previous History of Same: Yes Severity: mild Quality: constant Provoking factors: medication change (wants to stop Kratom) Improves With: nothing Worsens With: nothing Associated symptoms: palpitations, nausea/vomiting, weakness - Related Data Home Medications: Home Medications Medication Instructions Recorded Confirmed Levothyroxine Sodium [Synthroid] 50 mcg PO DAILY 08/03/17 09/23/18 DULoxetine HCL [Cymbalta] 60 mg PO DAILY 09/23/18 09/23/18 Ibuprofen [Motrin Ib] 400 mg PO Q6H PRN 09/23/18 09/23/18 Allergies/Adverse Reactions: Allergies Allergy/AdvReac Type Severity Reaction Status Date / Time carbamazepine [From Tegretol] Allergy Rash/Hives Verified 02/17/19 13:14 divalproex sodium Allergy Swelling Verified 02/17/19 13:14 [From Depakote] niacin Allergy Rash/Hives Verified 02/17/19 13:14 nifedipine [From Procardia] Allergy RASH & Verified 02/17/19 13:14 SWELLING diphenhydramine HCl AdvReac MUSCLE Verified 02/17/19 13:14 [From Benadryl] CRAMPS gabapentin [From Neurontin] AdvReac MAKES HER Verified 02/17/19 13:14 FEEL DRUNK pregabalin [From Lyrica] AdvReac MAKES HER Verified 02/17/19 13:14 FEEL DRUNK tramadol HCl [From Ultram] AdvReac SEIZURES Verified 02/17/19 13:14 seizure meds Allergy Rash/Hives Uncoded 02/17/19 13:14 VITAMIN B COMPLEX Allergy Rash/Hives Uncoded 02/17/19 13:14 Review of Systems ROS Statement: Those systems with pertinent positive or pertinent negative responses have been documented in the HPI. ROS Other: All systems not noted in ROS Statement are negative. Past Medical History Past Medical History: Mitral Valve Prolapse (MVP), Seizure Disorder, Thyroid Disorder Additional Past Medical History / Comment(s): CHRONIC NECK AND SHOULDER PAIN, HX KIDNEY STONES, ABD HERNIA, NARCOLEPSY, HX SEIZURE X 1 2012, recent injury to tendon right thumb, endometriosis, History of Any Multi-Drug Resistant Organisms: None Reported Past Surgical History: Section, Cholecystectomy, Tubal Ligation Additional Past Surgical History / Comment(s): TL X 2, Past Anesthesia/Blood Transfusion Reactions: No Reported Reaction Past Psychological History: Anxiety, Depression Smoking Status: Current some day smoker Past Alcohol Use History: None Reported Past Drug Use History: Opiates, Prescription Drug Abuse - Past Family History Father Additional Family Medical History / Comment(s): BACK PROBLEMS,DEPRESSION- COMMITED SUICIDE @ AGE 53 Mother Family Medical History: Osteoarthritis (OA) Additional Family Medical History / Comment(s): COLITIS General Exam Limitations: no limitations General appearance: alert, in no apparent distress Head exam: Present: atraumatic, normocephalic, normal inspection Eye exam: Present: normal appearance, PERRL, EOMI. Absent: scleral icterus, conjunctival injection, periorbital swelling ENT exam: Present: normal exam, mucous membranes moist Neck exam: Present: normal inspection. Absent: tenderness, meningismus, lymphadenopathy Respiratory exam: Present: normal lung sounds bilaterally. Absent: respiratory distress, wheezes, rales, rhonchi, stridor Cardiovascular Exam: Present: regular rate, normal rhythm, normal heart sounds. Absent: systolic murmur, diastolic murmur, rubs, gallop, clicks GI/Abdominal exam: Present: soft, normal bowel sounds. Absent: distended, tenderness, guarding, rebound, rigid Extremities exam: Present: normal inspection, full ROM, normal capillary refill. Absent: tenderness, pedal edema, joint swelling, calf tenderness Back exam: Present: normal inspection Neurological exam: Present: alert, oriented X3, CN II-XII intact Psychiatric exam: Present: normal affect, normal mood Skin exam: Present: warm, dry, intact, normal color. Absent: rash Course Vital Signs 02/17/19 13:14 Temperature 98.5 F Pulse Rate 120 H Respiratory 18 Rate Blood Pressure 136/83 O2 Sat by Pulse 100 Oximetry - Reevaluation(s) Reevaluation #1: 02/17/19 14:43 Medical records reviewed Reevaluation #2: 02/17/19 14:43 Patient feels better and remains without homicidal or suicidal thoughts Reevaluation #3: 02/17/19 14:43 Patient is provided resources for follow-up with substance abuse as well as primary care Medical Decision Making - Medical Decision Making 38 female presented today for evaluation regards to impending medication withdrawal, rachel. At this time patient will be discharged home appropriate follow-up was given Disposition Clinical Impression: Depression, Medication withdrawal Disposition: HOME SELF-CARE Condition: Good Instructions (If sedation given, give patient instructions): Narcotic Safety (ED) Is patient prescribed a controlled substance at d/c from ED?: No Referrals: Hanh Billingsley MD [Primary Care Provider] - 1-2 days
[2019-02-17] MEDS ORDERED: cloNIDine 0.3 MG/24HR PATCH TRANSDERM SCH (14:30)
[2019-02-17 15:33] VITALS: BP 120/83; PULSE 70; RESP 16
== END 2019-02-17 15:31 | disposition home or self-care (01) ==
LOC: EC 13:01
DX: F19.939 Other psychoactive substance use, unspecified with withdrawal, unspecified (principal); F32.9 Major depressive disorder, single episode, unspecified; F41.9 Anxiety disorder, unspecified; R00.2 Palpitations; R20.2 Paresthesia of skin; R20.0 Anesthesia of skin; R11.2 Nausea with vomiting, unspecified; R53.1 Weakness; E07.9 Disorder of thyroid, unspecified; F17.200 Nicotine dependence, unspecified, uncomplicated; Z79.890 Hormone replacement therapy; Z79.899 Other long term (current) drug therapy; Z88.8 Allergy status to other drugs, medicaments and biological substances; Z88.6 Allergy status to analgesic agent; Z88.5 Allergy status to narcotic agent
CPT/HCPCS: 99285; S0119

== ENCOUNTER → 2019-02-19 | Outpatient (CLI) | payer OTHER ==
[2019-02-20 01:03] LABS: African American GFR (CKD) 109.2 (60.0-200.0); Albumin 4.5 g/dL (3.80-4.90); Albumin/Globulin Ratio 2.5 (1.60-3.17); Anion Gap 6.5 mmol/L (4.00-12.00); BUN/Creat Ratio 16.25 Ratio (12.00-20.00); Calcium 8.8 mg/dL (8.7-10.3); Carbon Dioxide 27.5 mmol/L (21.6-31.8); Globulin 1.8 g/dL (1.6-3.3); Non-African American GFR(CKD) 94.2 (60.0-200.0); Potassium 4.2 mmol/L (3.5-5.5); Total Bilirubin 0.4 mg/dL (0.3-1.2); Total Protein 6.3 g/dL (6.2-8.2)
[2019-02-20 01:14] LABS: HIV 1 AB Non-Reactive (Non-Reactive); HIV 2 AB Non-Reactive (Non-Reactive); HIV AB P24 Non-Reactive (Non-Reactive); HIV P24 AG Non-Reactive (Non-Reactive)
[2019-02-20 01:15] LABS: Hepatitis A Antibody IgM Non-Reactive (Non-Reactive); Hepatitis B Core IgM Non-Reactive (Non-Reactive); Hepatitis B Surface Antigen Non-Reactive (Non-Reactive); Hepatitis C IgG Antibody Non-Reactive (Non-Reactive)
== END | disposition home or self-care (01) ==
LOC: LABWHC1 15:59
PROVIDERS: ATTEND Family Medicine
DX: Z51.81 Encounter for therapeutic drug level monitoring (principal); Z79.899 Other long term (current) drug therapy
CPT/HCPCS: 36415; 80053; 80074; 84443; 87390

== ENCOUNTER 2019-04-06 17:11 | Emergency (ER) | payer OTHER ==
[2019-04-06] MEDS ORDERED: KETOROLAC 30 MG/ML 1 ML VIAL IVP STA (18:11)
[2019-04-06] MEDS ORDERED: SODIUM CHLORIDE 0.9% 1,000 ML IV STA (18:11)
[2019-04-06 18:34] LABS: Basophils # (A) 0.1 k/uL (0-0.2); Basophils % (A) 1 %; Eosinophils % (A) 1 %; HCT 40.2 % (34.0-46.0); HGB 13.1 gm/dL (11.4-16.0); Lymphocytes # (A) 0.9 k/uL (1.0-4.8); Lymphocytes % (A) 20 %; MCH 29.1 pg (25.0-35.0); MCHC 32.6 g/dL (31.0-37.0); MCV 89.4 fL (80.0-100.0); Mean Platelet Volume 10.1; Monocytes # (A) 0.4 k/uL (0-1.0); Monocytes % (A) 8 %; Neutrophils # (A) 3.2 k/uL (1.3-7.7); Neutrophils % (A) 69 %; Platelet Count 158 k/uL (150-450); RDW 12.9 % (11.5-15.5); WBC 4.6 k/uL (3.8-10.6)
--- NOTE | 2019-04-06 18:35 | ED ---
Chest Pain HPI - General Chief Complaint: Chest Pain Stated Complaint: Chest pain Time Seen by Provider: 04/06/19 17:20 Source: patient, EMS Mode of arrival: EMS Limitations: no limitations - History of Present Illness Initial Comments: The patient is a 38 old female presents emergency room with reported pleuritic chest pain. She is a transfer from [facility]. She has a history of mitral valve prolapse and tachycardia. She is coming in stating that she started having pleuritic chest pain 2 hours ago. She states she has multiple sick contacts at [facility]. Everyone has been coughing and congested. She thinks she may have contracted something. She denies a productive cough. No hemoptysis. No ripping or tearing sensation to her back. She is at [facility] for Kratom use. States she has no history of IV drug abuse. She denies a family history of cardiac disease. No calf pain or swelling. No pedal edema. Denies history of DVT or PE. Denies any additional symptoms include headache, neck pain, nausea or vomiting. There are no alleviating precipitating or modifying factors - Related Data Home Medications Medication Instructions Recorded Confirmed Levothyroxine Sodium [Synthroid] 50 mcg PO DAILY 08/03/17 09/23/18 DULoxetine HCL [Cymbalta] 60 mg PO DAILY 09/23/18 09/23/18 Ibuprofen [Motrin Ib] 400 mg PO Q6H PRN 09/23/18 09/23/18 Previous Rx's Medication Instructions Recorded Albuterol Sulfate [Proair Hfa] 1 - 2 puff INHALATION Q6HR PRN #1 04/06/19 inhaler predniSONE [Deltasone] 20 mg PO BID #10 tab 04/06/19 Allergies Allergy/AdvReac Type Severity Reaction Status Date / Time carbamazepine [From Tegretol] Allergy Rash/Hives Verified 02/17/19 13:14 divalproex sodium Allergy Swelling Verified 02/17/19 13:14 [From Depakote] niacin Allergy Rash/Hives Verified 02/17/19 13:14 nifedipine [From Procardia] Allergy RASH & Verified 02/17/19 13:14 SWELLING diphenhydramine HCl AdvReac MUSCLE Verified 02/17/19 13:14 [From Benadryl] CRAMPS gabapentin [From Neurontin] AdvReac MAKES HER Verified 02/17/19 13:14 FEEL DRUNK pregabalin [From Lyrica] AdvReac MAKES HER Verified 02/17/19 13:14 FEEL DRUNK tramadol HCl [From Ultram] AdvReac SEIZURES Verified 02/17/19 13:14 seizure meds Allergy Rash/Hives Uncoded 02/17/19 13:14 VITAMIN B COMPLEX Allergy Rash/Hives Uncoded 02/17/19 13:14 Review of Systems ROS Statement: Those systems with pertinent positive or pertinent negative responses have been documented in the HPI. ROS Other: All systems not noted in ROS Statement are negative. EKG Findings - EKG Comments: EKG Findings:: EKG done inserts normal sinus rhythm with a ventricular rate of 72. NE interval 120. QRS 102. QTC of 424. No acute ST segment elevations or depressions concerning for ischemic changes. Past Medical History Past Medical History: Mitral Valve Prolapse (MVP), Seizure Disorder, Thyroid Disorder Additional Past Medical History / Comment(s): CHRONIC NECK AND SHOULDER PAIN, HX KIDNEY STONES, ABD HERNIA, NARCOLEPSY, HX SEIZURE X 1 2012, recent injury to tendon right thumb, endometriosis, History of Any Multi-Drug Resistant Organisms: None Reported Past Surgical History: Section, Cholecystectomy, Tubal Ligation Additional Past Surgical History / Comment(s): TL X 2, Past Anesthesia/Blood Transfusion Reactions: No Reported Reaction Past Psychological History: Anxiety, Depression Smoking Status: Current some day smoker Past Alcohol Use History: None Reported Past Drug Use History: None Reported - Past Family History Father Additional Family Medical History / Comment(s): BACK PROBLEMS,DEPRESSION- COMMITED SUICIDE @ AGE 53 Mother Family Medical History: Osteoarthritis (OA) Additional Family Medical History / Comment(s): COLITIS General Exam Limitations: no limitations General appearance: alert, in no apparent distress Head exam: Present: atraumatic, normocephalic, normal inspection Eye exam: Present: normal appearance, PERRL, EOMI. Absent: scleral icterus, conjunctival injection, periorbital swelling ENT exam: Present: normal exam, mucous membranes moist Neck exam: Present: normal inspection. Absent: tenderness, meningismus, lymphadenopathy Respiratory exam: Present: normal lung sounds bilaterally. Absent: respiratory distress, wheezes, rales, rhonchi, stridor Cardiovascular Exam: Present: regular rate, normal rhythm, normal heart sounds. Absent: systolic murmur, diastolic murmur, rubs, gallop, clicks GI/Abdominal exam: Present: soft, normal bowel sounds. Absent: distended, tenderness, guarding, rebound, rigid Extremities exam: Present: normal inspection, full ROM, normal capillary refill. Absent: tenderness, pedal edema, joint swelling, calf tenderness Back exam: Present: normal inspection Neurological exam: Present: alert, oriented X3, CN II-XII intact Psychiatric exam: Present: normal affect, normal mood Skin exam: Present: warm, dry, intact, normal color. Absent: rash Course Vital Signs 04/06/19 04/06/19 04/06/19 17:16 17:18 17:22 Temperature 98.3 F Pulse Rate 66 Respiratory 20 16 Rate Blood Pressure 137/93 O2 Sat by Pulse 95 100 Oximetry 04/06/19 04/06/19 04/06/19 17:30 18:00 18:22 Temperature Pulse Rate 95 63 Respiratory 16 16 16 Rate Blood Pressure 137/93 125/88 O2 Sat by Pulse 96 Oximetry 04/06/19 04/06/19 18:30 21:18 Temperature 99.2 F Pulse Rate 78 Respiratory 16 Rate Blood Pressure 118/82 126/91 O2 Sat by Pulse 100 Oximetry Chest Pain MDM - MDM Upon arrival the patient was placed in room 19. A thorough history and physical exam was performed. EKG was obtained. Peripheral IV was established. The patient was given 15 mg of Toradol. Laboratories his for conducted. D-dimer was elevated at 2 and therefore the patient was sent for a CT of her chest. CT demonstrates no dissection, aneurysm or PE. I discussed results the patient. She has had improvement with her pain with the Toradol administration. I discussed diagnosis, differential and treatment options. At this time the patient will be treated with steroids. She is given 60 mg in the emergency room and will be sent home with a 5 day prescription. I also provided her with a albuterol inhaler. She is to follow up with her primary care doctor in 2-4 days. Patient is requesting to go home and not back to [facility]. We did call [facility] to ensure that this is appropriate for the patient and they agreed. The patient was then discharged home in stable condition Disposition Clinical Impression: Chest pain Disposition: HOME SELF-CARE Condition: Stable Instructions (If sedation given, give patient instructions): Pleurisy (ED) Additional Instructions: Please follow up with your primary care doctor in 2-4 days. Return to emergency department for any new or worsening symptoms Prescriptions: predniSONE [Deltasone] 20 mg PO BID #10 tab Albuterol Sulfate [Proair Hfa] 1 - 2 puff INHALATION Q6HR PRN #1 inhaler PRN Reason: Shortness Of Breath Is patient prescribed a controlled substance at d/c from ED?: No Referrals: Ayo Amaral MD [Primary Care Provider] - 1-2 days Time of Disposition: 21:08
[2019-04-06 18:40] LABS: ALT 16 U/L (4-34); AST 28 U/L (14-36); African American GFR (CKD) >90 (>60 ml/min/1.73 sqM); Alkaline Phosphatase 43 U/L (38-126); Anion Gap 6 mmol/L; Blood Urea Nitrogen 13 mg/dL (7-17); C Reactive Protein <5.0 mg/L (<10.0); Calcium 9.5 mg/dL (8.4-10.2); Carbon Dioxide 27 mmol/L (22-30); Chloride 106 mmol/L (98-107); Glucose 78 mg/dL (74-99); Magnesium 2.2 mg/dL (1.6-2.3); Non-African American GFR(CKD) >90 (>60 ml/min/1.73 sqM); Sodium 139 mmol/L (137-145); Total Bilirubin 0.5 mg/dL (0.2-1.3); Total Protein 6.4 g/dL (6.3-8.2)
--- NOTE | 2019-04-06 18:47 | XR ---
EXAMINATION TYPE: XR chest 2V DATE OF EXAM: 04/06/2019 COMPARISON: 09/23/2018 HISTORY: Chest pain TECHNIQUE: 2 views FINDINGS: Heart and mediastinum are normal. Lungs are clear. Diaphragm is normal. Bony thorax is inta ct. IMPRESSION: Normal chest. No change.
[2019-04-06 18:50] LABS: Potassium 4.2 mmol/L (3.5-5.1)
[2019-04-06 18:54] LABS: HCG,Qualitative Serum Not Detected
[2019-04-06 18:56] VITALS: RESP 16
[2019-04-06 19:01] LABS: Partial Thromboplastin Time 22.2 sec (22.0-30.0); Prothrombin Time 10.2 sec (9.0-12.0)
[2019-04-06 19:06] LABS: D-Dimer 2.01 mg/L FEU (<0.60)
[2019-04-06 19:25] LABS: Erythrocyte Sedimentation Rate 5 mm/hr (0-20)
--- NOTE | 2019-04-06 20:30 | CT ---
EXAMINATION TYPE: CT chest angio for PE DATE OF EXAM: 04/06/2019 COMPARISON: None HISTORY: elevated d-dimer CT DLP: 248.8 mGycm Automated exposure control for dose reduction was used. CONTRAST: Performed with IV Contrast, patient injected with 82cc mL of Isovue 370. There are 3-D post processed images. There is no mediastinal adenopathy. Thoracic aorta is intact. There is no thoracic aortic aneurysm or dissection. I see no filling defects in the pulmonary arteries. Heart size is normal. There is no pe ricardial effusion. The lungs are clear of infiltrate. There is no evidence of a pulmonary mass. There is no pleural effu maria eugenia or pneumothorax. Upper abdominal soft tissues are intact. There are no hilar masses. The bony thorax is intact. Impression normal CT scan of the chest. No evidence of pulmonary embolism.
[2019-04-06] MEDS ORDERED: predniSONE 20 MG TAB PO STA (21:05)
[2019-04-06 21:18] VITALS: BP 126/91; PULSE 78; TEMP 99.2
== END 2019-04-06 21:26 | disposition home or self-care (01) ==
LOC: EC 17:11
DX: R07.9 Chest pain, unspecified (principal); E07.9 Disorder of thyroid, unspecified; F41.9 Anxiety disorder, unspecified; F32.9 Major depressive disorder, single episode, unspecified; F17.200 Nicotine dependence, unspecified, uncomplicated; Z79.890 Hormone replacement therapy; Z79.899 Other long term (current) drug therapy; Z88.5 Allergy status to narcotic agent; Z88.8 Allergy status to other drugs, medicaments and biological substances
CPT/HCPCS: 36415; 93005; 85379; 83880; 80053; 85652; 83735; 84484; 85025; 85610; 85730; 86140; 84703; 71046; 71275; 99285; 96374; 96361 ×3; J1885; J7512; Q9967

== ENCOUNTER 2019-04-15 21:30 | Emergency (ER) | payer OTHER ==
--- NOTE | 2019-04-15 22:28 | ED ---
Psych HPI - General Chief Complaint: Psychiatric Symptoms Stated Complaint: Suicidal Time Seen by Provider: 04/15/19 22:00 Source: patient, RN notes reviewed Mode of arrival: ambulatory - History of Present Illness Initial Comments: This is a 38-year-old female history of substance abuse who states she's been out of rehab at [facility] for over a week she's been using Kratom every day. She states she's been feeling depressed and suicidal for quite some time but now she states she would really like to do it either by poison herself or shooting herself with a gun which he has access to. She denies any alcohol she last used the drugs this morning. She denies any chance of no other modifying factors at this time. She does have a history of admission for depression. MD Complaint: suicidal ideation, feels depressed - Related Data Home Medications Medication Instructions Recorded Confirmed Levothyroxine Sodium [Synthroid] 50 mcg PO DAILY 08/03/17 04/15/19 DULoxetine HCL [Cymbalta] 60 mg PO DAILY 09/23/18 04/15/19 QUEtiapine [SEROquel] 100 mg PO HS 04/15/19 04/15/19 Allergies Allergy/AdvReac Type Severity Reaction Status Date / Time carbamazepine [From Tegretol] Allergy Rash/Hives Verified 04/15/19 23:18 divalproex sodium Allergy Swelling Verified 04/15/19 23:18 [From Depakote] niacin Allergy Rash/Hives Verified 04/15/19 23:18 nifedipine [From Procardia] Allergy RASH & Verified 04/15/19 23:18 SWELLING diphenhydramine HCl AdvReac MUSCLE Verified 04/15/19 23:18 [From Benadryl] CRAMPS gabapentin [From Neurontin] AdvReac MAKES HER Verified 04/15/19 23:18 FEEL DRUNK pregabalin [From Lyrica] AdvReac MAKES HER Verified 04/15/19 23:18 FEEL DRUNK tramadol HCl [From Ultram] AdvReac SEIZURES Verified 04/15/19 23:18 seizure meds Allergy Rash/Hives Uncoded 04/15/19 23:18 VITAMIN B COMPLEX Allergy Rash/Hives Uncoded 04/15/19 23:18 Review of Systems ROS Statement: Those systems with pertinent positive or pertinent negative responses have been documented in the HPI. ROS Other: All systems not noted in ROS Statement are negative. Past Medical History Past Medical History: Mitral Valve Prolapse (MVP), Seizure Disorder, Thyroid Disorder Additional Past Medical History / Comment(s): CHRONIC NECK AND SHOULDER PAIN, HX KIDNEY STONES, ABD HERNIA, NARCOLEPSY, HX SEIZURE X 1 2012, recent injury to tendon right thumb, endometriosis, History of Any Multi-Drug Resistant Organisms: None Reported Past Surgical History: Section, Cholecystectomy, Tubal Ligation Additional Past Surgical History / Comment(s): TL X 2, Past Anesthesia/Blood Transfusion Reactions: No Reported Reaction Past Psychological History: Anxiety, Depression Smoking Status: Current some day smoker Past Alcohol Use History: None Reported Past Drug Use History: None Reported - Past Family History Father Additional Family Medical History / Comment(s): BACK PROBLEMS,DEPRESSION- COMMITED SUICIDE @ AGE 53 Mother Family Medical History: Osteoarthritis (OA) Additional Family Medical History / Comment(s): COLITIS General Exam - General Exam Comments Initial Comments: This is a well-developed asthenic appearing female who is awake alert oriented 3 Limitations: no limitations General appearance: alert, in no apparent distress Head exam: Present: atraumatic, normocephalic, normal inspection Eye exam: Present: normal appearance, PERRL, EOMI. Absent: scleral icterus, conjunctival injection, periorbital swelling ENT exam: Present: mucous membranes dry Neck exam: Present: normal inspection. Absent: tenderness, meningismus, lymphadenopathy Respiratory exam: Present: normal lung sounds bilaterally. Absent: respiratory distress, wheezes, rales, rhonchi, stridor Cardiovascular Exam: Present: normal rhythm, tachycardia, normal heart sounds. Absent: systolic murmur, diastolic murmur, rubs, gallop, clicks GI/Abdominal exam: Present: soft, normal bowel sounds. Absent: distended, tenderness, guarding, rebound, rigid Extremities exam: Present: normal inspection, full ROM, normal capillary refill. Absent: tenderness, pedal edema, joint swelling, calf tenderness Back exam: Present: normal inspection Neurological exam: Present: alert, oriented X3, CN II-XII intact Psychiatric exam: Present: depressed, flat affect, suicidal ideation Skin exam: Present: warm, dry, intact, normal color. Absent: rash Course Vital Signs 04/15/19 04/16/19 04/16/19 21:32 05:06 08:12 Temperature 98.0 F 97.9 F 97.9 F Pulse Rate 117 H 93 93 Respiratory 18 16 16 Rate Blood Pressure 134/89 100/60 100/60 O2 Sat by Pulse 99 97 97 Oximetry - Reevaluation(s) Reevaluation #1: 04/16/19 00:53 Patient has been evaluated by the psychiatric service and is pending final evaluation which will likely be admission either in this facility or an outside facility 04/16/19 00:54 The patient's care is endorsed to Dr. Hirsch at her shift change Reevaluation #2: 04/16/19 00:54 A clinical certification is filled out by dc Medical Decision Making - Medical Decision Making Patient was evaluated by the EPS service and transferred to an outside facility for inpatient care. - Lab Data Lab Results 04/15/19 04/15/19 Range/Units 22:18 22:18 Urine Color Yellow Urine Appearance Turbid H (Clear) Urine pH 5.5 (5.0-8.0) Ur Specific [place] 1.007 (1.001-1.035) Urine Protein Negative (Negative) Urine Glucose (UA) Negative (Negative) Urine Ketones Negative (Negative) Urine Blood Negative (Negative) Urine Nitrite Negative (Negative) Urine Bilirubin Negative (Negative) Urine Urobilinogen <2.0 (<2.0) mg/dL Ur Leukocyte Esterase Trace H (Negative) Urine RBC <1 (0-5) /hpf Urine WBC 7 H (0-5) /hpf Ur Squamous Epith Cells 3 (0-4) /hpf Urine Bacteria Occasional H (None) /hpf Urine Mucus Rare H (None) /hpf Urine HCG, Qual Not Detected (Not Detectd) Urine Opiates Screen Not Detected (NotDetected) Ur Oxycodone Screen Not Detected (NotDetected) Urine Methadone Screen Not Detected (NotDetected) Ur Propoxyphene Screen Not Detected (NotDetected) Ur Barbiturates Screen Not Detected (NotDetected) U Tricyclic Antidepress Not Detected (NotDetected) Ur Phencyclidine Scrn Not Detected (NotDetected) Ur Amphetamines Screen Not Detected (NotDetected) U Methamphetamines Scrn Not Detected (NotDetected) U Benzodiazepines Scrn Not Detected (NotDetected) Urine Cocaine Screen Not Detected (NotDetected) U Marijuana (THC) Screen Not Detected (NotDetected) Disposition Clinical Impression: Depression, Suicidal ideation Disposition: TRANSFER TO PSYCH HOSP/UNIT Condition: Stable Referrals: Ayo Amaral MD [Primary Care Provider] - 1-2 days
[2019-04-15 22:34] LABS: Appearance,Urine Turbid (Clear); Bacteria,Urine Occasional /hpf; Bilirubin,Urine Negative (Negative); Blood,Urine Negative (Negative); Color,Urine Yellow; Glucose,Urine (UA) Negative (Negative); Ketones,Urine Negative (Negative); Leukocyte Esterase,Urine Trace (Negative); Mucus,Urine Rare /hpf; Nitrite,Urine Negative (Negative); PH, Urine 5.5 (5.0-8.0); Protein,Urine Negative (Negative); RBC,Urine <1 /hpf (0-5); Specific Gravity,Urine 1.007 (1.001-1.035); Squamous Epithelial Cell,Urine 3 /hpf (0-4); Urobilinogen,Urine <2.0 mg/dL (<2.0); WBC,Urine 7 /hpf (0-5)
[2019-04-15 22:44] LABS: Amphetamine Screen,Urine Not Detected (NotDetected); Barbiturate Screen,Urine Not Detected (NotDetected); Benzodiazepines Screen,Urine Not Detected (NotDetected); Cocaine Screen,Urine Not Detected (NotDetected); Methadone Screen, Urine Not Detected (NotDetected); Opiate Screen,Urine Not Detected (NotDetected); Oxycodone Screen, Urine Not Detected (NotDetected); Phencyclidine Screen,Urine Not Detected (NotDetected); Tricyclic Antidepressant,Urine Not Detected (NotDetected); Urn Cannabinoid Scrn Not Detected (NotDetected)
[2019-04-16] MEDS ORDERED: LORazepam 1 MG TAB PO STA (00:55)
[2019-04-16 05:07] VITALS: BP 100/60; PULSE 93; RESP 16; TEMP 97.9
== END 2019-04-16 08:14 ==
LOC: EC 21:30
DX: F32.9 Major depressive disorder, single episode, unspecified (principal); R45.851 Suicidal ideations; E07.9 Disorder of thyroid, unspecified; F41.9 Anxiety disorder, unspecified; F17.200 Nicotine dependence, unspecified, uncomplicated; Z79.890 Hormone replacement therapy; Z79.899 Other long term (current) drug therapy
CPT/HCPCS: 80306; 81001; 81025; 82075; 99285

== ENCOUNTER → 2020-04-05 | Outpatient (CLI) | payer OTHER ==
--- NOTE | 2020-04-06 07:17 | MR ---
EXAMINATION TYPE: MR brain wo/w con DATE OF EXAM: 04/05/2020 COMPARISON: MRI brain January 20, 2015 HISTORY: Elevated prolactin level, new onset headache, and vision changes. TECHNIQUE: Multiplanar, multisequence images of the brain and brainstem is performed without and with IV contras t, utilizing 6 mL intravenous Gadavist . FINDINGS: Diffusion weighted images demonstrate no evidence of a recent infarct or other diffusion ab normality. There is no extra-axial fluid collection or significant white matter signal abnormality. The ventricular system and cisternal spaces are normal in size and appearance. The brain volume is age appropriate. Midline structures demonstrate normal morphology. The craniocervical junction remaining within wilfrido l limits. Post contrast images demonstrate no abnormal enhancement. Suprasellar cistern is maintaine d. The dural venous sinuses appear patent. The visualized sinuses are clear and the globes are intact . IMPRESSION: Unremarkable study. No significant change from prior.
== END | disposition home or self-care (01) ==
LOC: RADMRIMAIN 20:45
PROVIDERS: ATTEND Family Medicine
DX: H53.9 Unspecified visual disturbance (principal); R51.9 Headache, unspecified; R79.89 Other specified abnormal findings of blood chemistry
CPT/HCPCS: 70553; A9585

== ENCOUNTER → 2020-07-20 | Outpatient (CLI) | payer OTHER ==
--- NOTE | 2020-07-21 07:47 | US ---
EXAMINATION TYPE: US pelvic complete DATE OF EXAM: 07/20/2020 COMPARISON: 10/12/2015 CLINICAL HISTORY: N93.8 Dysfunctional uterine bleeding. TECHNIQUE: Transabdominal sonographic images of the pelvis were acquired. Transvaginal sonographic images were medically necessary to better assess the following anatomy: LMP 06/06/2020 EXAM MEASUREMENTS: Uterus: 8.0 x 4.4 x 4.4 cm Endometrial Stripe: 0.4 cm Right Ovary: 2.7 x 2.0 x 1.9 cm Left Ovary: 2.5 x 2.5 x 1.9 cm 1. Uterus: Anteverted wnl 2. Endometrium: wnl 3. Right Ovary: wnl there is a small follicle within the right ovary measuring 1.4 cm. 4. Left Ovary: wnl tiny follicles in left ovary. 5. Bilateral Adnexa: wnl 6. Posterior cul-de-sac: wnl no evidence of free fluid. IMPRESSION: 1. Small bilateral follicles. No free fluid is seen.
== END | disposition home or self-care (01) ==
LOC: RADUSWWP 15:08
PROVIDERS: ATTEND Obstetrics & Gynecology
DX: N93.8 Other specified abnormal uterine and vaginal bleeding (principal)
CPT/HCPCS: 76856

== ENCOUNTER 2020-10-14 07:38 | Day surgery (SDC) | payer OTHER ==
[2020-10-11 15:37] VITALS: BMI 23.3
--- NOTE | 2020-10-13 16:09 | P.HPOB ---
History of Present Illness H&P Date: 10/13/20 Chief Complaint: Dysfunctional uterine bleeding Patient is a 40-year-old female with dysfunctional uterine bleeding. She is had an ECC in the past she continues to have very irregular bleeding with unremarkable ultrasound she is scheduled for D&C is asked hysteroscopy Mumtaz. Risks/benefits/alternatives to this procedure were discussed the patient in detail and all questions were answered for her prior to proceeding to the operative room. She is aware of risks of bleeding and infection, possible perforation, possible need for further surgeries. Symptoms have been present for at least for 6 months in duration and labs were otherwise unremarkable. Medication treatments are not a good candidate as she is on multiple anticonvulsants and she has memory issues and doesn't as really think she would be able to remember taking more pills. All other questions were answered for her prior to proceeding to the operating room. Past Medical History Past Medical History: Mitral Valve Prolapse (MVP), Seizure Disorder, Thyroid Di sorder Additional Past Medical History / Comment(s): CHRONIC NECK AND SHOULDER PAIN, HX KIDNEY STONES, ABD HERNIA, NARCOLEPSY, HX SEIZURE X 1 2012, endometriosis, History of Any Multi-Drug Resistant Organisms: None Reported Past Surgical History: Section, Cholecystectomy, Tubal Ligation Additional Past Surgical History / Comment(s): TL X 2, Past Anesthesia/Blood Transfusion Reactions: No Reported Reaction Smoking Status: Current some day smoker - Past Family History Father Additional Family Medical History / Comment(s): BACK PROBLEMS,DEPRESSION- COMMITTED SUICIDE @ AGE 53 Mother Family Medical History: Osteoarthritis (OA) Additional Family Medical History / Comment(s): COLITIS Medications and Allergies Home Medications Medication Instructions Recorded Confirmed Type Levothyroxine Sodium [Synthroid] 50 mcg PO DAILY 08/03/17 10/11/20 History Methadone HCl 75 mg PO DAILY 10/11/20 10/11/20 History traZODone HCL 25 mg PO HS 10/11/20 10/11/20 History Allergies Allergy/AdvReac Type Severity Reaction Status Date / Time carbamazepine [From Tegretol] Allergy Rash/Hives Verified 10/11/20 15:30 divalproex sodium Allergy Swelling Verified 10/11/20 15:30 [From Depakote] niacin Allergy Rash/Hives Verified 10/11/20 15:30 nifedipine [From Procardia] Allergy RASH & Verified 10/11/20 15:30 SWELLING diphenhydramine HCl AdvReac MUSCLE Verified 10/11/20 15:30 [From Benadryl] CRAMPS gabapentin [From Neurontin] AdvReac MAKES HER Verified 10/11/20 15:30 FEEL DRUNK pregabalin [From Lyrica] AdvReac MAKES HER Verified 10/11/20 15:30 FEEL DRUNK tramadol HCl [From Ultram] AdvReac SEIZURES Verified 10/11/20 15:30 seizure meds Allergy Rash/Hives Uncoded 10/11/20 15:30 VITAMIN B COMPLEX Allergy Rash/Hives Uncoded 10/11/20 15:30 Exam Osteopathic Statement: *. No significant issues noted on an osteopathic structural exam other than those noted in the History and Physical/Consult. - OBG Physical Exam Breast: both: normal (no masses) Abdomen: bowel sounds normal, no diffuse tenderness, no bruit present, no guarding noted, no hepatomegaly, no splenomegaly, no mass Vulva: both: normal Vagina: normal moisture, no discharge Cervix: no lesion, no discharge Uterus: normal size, normal contour Adnexa: both: normal Anus/Rectum: normal perianal skin, no rectal mass, no hemorrhoids, heme negative
[~2020-10-14 07:38] MED LIST changes: +DEXAMETHASONE SOD PHOSPHATE 4 MG/ML 1 ML VIAL IV ONE; +LACTATED RINGERS 1,000 ML IV SCH; -MAGNESIUM CITRATE 296 ML BOTTLE ONE; +ONDANSETRON 4 MG/2 ML VIAL IVP ONE; +Pre Op ABX Message 1 EACH MISC MISCELLANE ONE
[2020-10-14] MEDS ORDERED: fentaNYL (PF) 50 MCG/ML 2 ML AMP ONE (08:47)
[2020-10-14] MEDS ORDERED: PROPOFOL 10 MG/ML 20 ML VIAL IV ONE (08:47)
[2020-10-14] MEDS ORDERED: MIDAZOLAM 2 MG/2 ML VIAL ONE (08:47)
[2020-10-14] MEDS ORDERED: LIDOCAINE 1% INJ 10MG/ML (20 ML MDV) ONE (08:47)
--- NOTE | 2020-10-14 09:25 | P.OP ---
Date of Procedure: 10/14/20 Preoperative Diagnosis: Dysfunctional uterine bleeding Postoperative Diagnosis: Same Procedure(s) Performed: D&C with hysteroscopy and NovaSure Anesthesia: IRA Surgeon: David Boudreaux Estimated Blood Loss (ml): 5 IV fluids (ml): 400 Pathology: other (Uterine curettings) Condition: stable Disposition: same day Operative Findings: Pathology pending Description of Procedure: Patient was taken to the operating suite where a general anesthetic was found be adequate. She was prepped and draped in normal sterile fashion and placed in the dorsal lithotomy position. Initially a weighted speculum was inserted in vagina and the anterior lip of cervix identified and grasped with an Allis clamp. Cervix was then dilated and uterus was sounded to 11 cm. Once this was completed camera was inserted with limited pathology noted. Camera was then removed and sharp curettings were obtained. This tissue was all collected and placed on Telfa and sent to pathology for evaluation. Once completed NovaSure system was inserted with length of 5 and a width of 3.4 into was tested passed its patency test. It was enabled and then burned for a minute and 29 seconds. At conclusion of the burn system was removed camera was reinserted with excellent burn noted. All incidents were then removed. Sponge, lap, needle counts were all correct 2. Patient was then taken to the recovery room in stable and satisfactory condition. Plan - Discharge Summary Discharge Rx Participant: No New Discharge Prescriptions: New Ibuprofen [Motrin] 600 mg PO Q6HR PRN #30 tab PRN Reason: Pain No Action Levothyroxine Sodium [Synthroid] 50 mcg PO DAILY traZODone HCL 25 mg PO HS Methadone HCl 75 mg PO DAILY Discharge Medication List Levothyroxine Sodium [Synthroid] 50 mcg PO DAILY 08/03/17 [History] Methadone HCl 75 mg PO DAILY 10/11/20 [History] traZODone HCL 25 mg PO HS 10/11/20 [History] Ibuprofen [Motrin] 600 mg PO Q6HR PRN #30 tab 10/14/20 [Rx] Follow up Appointment(s)/Referral(s): David Boudreaux DO [Doctor of Osteopathic Medicine] - 1 Week Activity/Diet/Wound Care/Special Instructions: No heavy lifting, limit stairs and driving, and pelvic rest. If any high temperatures, heavy bleeding, or severe pain call my office Discharge Disposition: HOME SELF-CARE
[2020-10-14] MEDS ORDERED: PROMETHAZINE INJ 25 MG/ML 1 ML VIAL IVPB ONE ×2 (09:36)
[2020-10-14] MEDS: HYDROmorphone 0.5 MG/0.5 ML SYRINGE IVP PRN ×2 (09:45→09:58)
[2020-10-14 09:47] VITALS: TEMP 98
[2020-10-14] MEDS ORDERED: LACTATED RINGERS 1,000 ML IV ONE (10:03)
[2020-10-14 10:53] VITALS: BP 102/77; PULSE 68; RESP 20
== END 2020-10-14 10:45 | disposition home or self-care (01) ==
LOC: OR 07:38
PROVIDERS: ATTEND Obstetrics & Gynecology
DX: N93.8 Other specified abnormal uterine and vaginal bleeding (principal); I34.1 Nonrheumatic mitral (valve) prolapse; F17.200 Nicotine dependence, unspecified, uncomplicated; E07.9 Disorder of thyroid, unspecified; Z86.73 Personal history of transient ischemic attack (TIA), and cerebral infarction without residual deficits; Z87.442 Personal history of urinary calculi; F41.8 Other specified anxiety disorders
CPT/HCPCS: 58558; 81025; 88305; J2250; J1100; J2550; J2405; J2001; J3010; J2704; J1170

== ENCOUNTER 2020-12-10 20:38 | Emergency (ER) | payer OTHER ==
[2020-12-10 20:58] VITALS: BP 121/87; PULSE 77; RESP 22; TEMP 98.8
[2020-12-11] MEDS ORDERED: DEXAMETHASONE SOD PHOSPHATE 10 MG/ML 1 ML VIAL IV STA (00:31)
[2020-12-11] MEDS ORDERED: KETOROLAC 15 MG/ML 1 ML VIAL IVP STA (00:31)
[2020-12-11] MEDS ORDERED: ALBUTEROL HFA INHALER INHALATION STA (00:31)
[2020-12-11] MEDS ORDERED: SODIUM CHLORIDE 0.9% 1,000 ML IV STA (00:31)
--- NOTE | 2020-12-11 00:33 | ED ---
Recheck HPI - General Chief Complaint: Upper Respiratory Infection Stated Complaint: Fever,Cough,GABBI Time Seen by Provider: 12/11/20 00:16 Source: patient, family, RN notes reviewed, old records reviewed Mode of arrival: ambulatory Limitations: no limitations - History of Present Illness Initial Comments: This is a 40-year-old female for positive coronavirus. Patient states she still see finishing quarantine and is positive for coronavirus pneumonia, patient is on date 12/15. Patient states she has has increasing short of breath that she thought she would at this stage. No chest pain no other complaints MD Complaint: abnormal lab (Known positive coronavirus history) -: days(s) Returns Today for: persistent/worsening pain related to initial visit, other (80 some persistent shortness of breath) Symptoms Since Prior Visit: no new symptoms Associated Symptoms: fever, chills, chest pain, shortness of breath Treatments Prior to Arrival: other (none) - Related Data Home Medications Medication Instructions Recorded Confirmed Levothyroxine Sodium [Synthroid] 50 mcg PO DAILY 08/03/17 10/11/20 Methadone HCl 75 mg PO DAILY 10/11/20 10/11/20 traZODone HCL 25 mg PO HS 10/11/20 10/11/20 Previous Rx's Medication Instructions Recorded Ibuprofen [Motrin] 600 mg PO Q6HR PRN #30 tab 10/14/20 Allergies Allergy/AdvReac Type Severity Reaction Status Date / Time carbamazepine [From Tegretol] Allergy Rash/Hives Verified 12/10/20 20:58 divalproex sodium Allergy Swelling Verified 12/10/20 20:58 [From Depakote] niacin Allergy Rash/Hives Verified 12/10/20 20:58 nifedipine [From Procardia] Allergy RASH & Verified 12/10/20 20:58 SWELLING diphenhydramine HCl AdvReac MUSCLE Verified 12/10/20 20:58 [From Benadryl] CRAMPS gabapentin [From Neurontin] AdvReac MAKES HER Verified 12/10/20 20:58 FEEL DRUNK pregabalin [From Lyrica] AdvReac MAKES HER Verified 12/10/20 20:58 FEEL DRUNK tramadol HCl [From Ultram] AdvReac SEIZURES Verified 12/10/20 20:58 seizure meds Allergy Rash/Hives Uncoded 12/10/20 20:58 VITAMIN B COMPLEX Allergy Rash/Hives Uncoded 12/10/20 20:58 Review of Systems ROS Statement: Those systems with pertinent positive or pertinent negative responses have been documented in the HPI. ROS Other: All systems not noted in ROS Statement are negative. Past Medical History Past Medical History: Mitral Valve Prolapse (MVP), Seizure Disorder, Thyroid Disorder Additional Past Medical History / Comment(s): CHRONIC NECK AND SHOULDER PAIN, HX KIDNEY STONES, ABD HERNIA, NARCOLEPSY, HX SEIZURE X 1 2012, endometriosis, History of Any Multi-Drug Resistant Organisms: None Reported Past Surgical History: Section, Cholecystectomy, Tubal Ligation Additional Past Surgical History / Comment(s): TL X 2, Past Anesthesia/Blood Transfusion Reactions: No Reported Reaction Past Psychological History: Anxiety, Depression Smoking Status: Current some day smoker Past Alcohol Use History: None Reported Past Drug Use History: None Reported - Past Family History Father Additional Family Medical History / Comment(s): BACK PROBLEMS,DEPRESSION- COMMITTED SUICIDE @ AGE 53 Mother Family Medical History: Osteoarthritis (OA) Additional Family Medical History / Comment(s): COLITIS General Exam Limitations: no limitations General appearance: alert, in no apparent distress Head exam: Present: atraumatic, normocephalic, normal inspection Eye exam: Present: normal appearance, PERRL, EOMI. Absent: scleral icterus, conjunctival injection, periorbital swelling ENT exam: Present: normal exam, mucous membranes moist Neck exam: Present: normal inspection. Absent: tenderness, meningismus, lymphadenopathy Respiratory exam: Present: normal lung sounds bilaterally. Absent: respiratory distress, wheezes, rales, rhonchi, stridor Cardiovascular Exam: Present: regular rate, normal rhythm, normal heart sounds. Absent: systolic murmur, diastolic murmur, rubs, gallop, clicks GI/Abdominal exam: Present: soft, normal bowel sounds. Absent: distended, tend erness, guarding, rebound, rigid Extremities exam: Present: normal inspection, full ROM, normal capillary refill. Absent: tenderness, pedal edema, joint swelling, calf tenderness Back exam: Present: normal inspection Neurological exam: Present: alert, oriented X3, CN II-XII intact Psychiatric exam: Present: normal affect, normal mood Skin exam: Present: warm, dry, intact, normal color. Absent: rash Course Vital Signs 12/10/20 20:54 Temperature 98.8 F Pulse Rate 77 Respiratory 22 Rate Blood Pressure 121/87 O2 Sat by Pulse 100 Oximetry - Reevaluation(s) Reevaluation #1: Medical record is reviewed Patient symptoms are improved here in the ER Patient informed results and questions answered Medical Decision Making - Medical Decision Making 40 female positive for coronavirus. Patient is stable respiratory at this time. Patient can be discharged home - Lab Data Result diagrams: 12/11/20 01:17 12/11/20 01:17 Lab Results 12/11/20 12/11/20 12/11/20 Range/Units 01:17 01:17 01:17 WBC 5.4 (3.8-10.6) k/uL RBC 4.31 (3.80-5.40) m/uL Hgb 12.9 (11.4-16.0) gm/dL Hct 39.4 (34.0-46.0) % MCV 91.4 (80.0-100.0) fL MCH 29.9 (25.0-35.0) pg MCHC 32.7 (31.0-37.0) g/dL RDW 12.5 (11.5-15.5) % Plt Count 169 (150-450) k/uL MPV 9.4 Neutrophils % 50 % Lymphocytes % 42 % Monocytes % 5 % Eosinophils % 2 % Basophils % 0 % Neutrophils # 2.7 (1.3-7.7) k/uL Lymphocytes # 2.3 (1.0-4.8) k/uL Monocytes # 0.3 (0-1.0) k/uL Eosinophils # 0.1 (0-0.7) k/uL Basophils # 0.0 (0-0.2) k/uL PT 10.3 (9.0-12.0) sec INR 1.0 (<1.2) APTT 23.6 (22.0-30.0) sec D-Dimer 0.26 (<0.60) mg/L FEU Sodium (137-145) mmol/L Potassium (3.5-5.1) mmol/L Chloride (98-107) mmol/L Carbon Dioxide (22-30) mmol/L Anion Gap mmol/L BUN (7-17) mg/dL Creatinine (0.52-1.04) mg/dL Est GFR (CKD-EPI)AfAm (>60 ml/min/1.73 sqM) Est GFR (CKD-EPI)NonAf (>60 ml/min/1.73 sqM) Glucose (74-99) mg/dL Plasma Lactic Acid Romeo (0.7-2.0) mmol/L Calcium (8.4-10.2) mg/dL Magnesium (1.6-2.3) mg/dL Total Bilirubin (0.2-1.3) mg/dL AST (14-36) U/L ALT (4-34) U/L Alkaline Phosphatase (38-126) U/L Lactate Dehydrogenase (313-618) U/L C-Reactive Protein (<1.0) mg/dL NT-Pro-B Natriuret Pep 137 pg/mL Total Protein (6.3-8.2) g/dL Albumin (3.5-5.0) g/dL 12/11/20 12/11/20 Range/Units 01:17 01:17 WBC (3.8-10.6) k/uL RBC (3.80-5.40) m/uL Hgb (11.4-16.0) gm/dL Hct (34.0-46.0) % MCV (80.0-100.0) fL MCH (25.0-35.0) pg MCHC (31.0-37.0) g/dL RDW (11.5-15.5) % Plt Count (150-450) k/uL MPV Neutrophils % % Lymphocytes % % Monocytes % % Eosinophils % % Basophils % % Neutrophils # (1.3-7.7) k/uL Lymphocytes # (1.0-4.8) k/uL Monocytes # (0-1.0) k/uL Eosinophils # (0-0.7) k/uL Basophils # (0-0.2) k/uL PT (9.0-12.0) sec INR (<1.2) APTT (22.0-30.0) sec D-Dimer (<0.60) mg/L FEU Sodium 139 (137-145) mmol/L Potassium 4.1 (3.5-5.1) mmol/L Chloride 102 (98-107) mmol/L Carbon Dioxide 30 (22-30) mmol/L Anion Gap 7 mmol/L BUN 9 (7-17) mg/dL Creatinine 0.67 (0.52-1.04) mg/dL Est GFR (CKD-EPI)AfAm >90 (>60 ml/min/1.73 sqM) Est GFR (CKD-EPI)NonAf >90 (>60 ml/min/1.73 sqM) Glucose 87 (74-99) mg/dL Plasma Lactic Acid Romeo 0.7 (0.7-2.0) mmol/L Calcium 9.3 (8.4-10.2) mg/dL Magnesium 2.3 (1.6-2.3) mg/dL Total Bilirubin 0.4 (0.2-1.3) mg/dL AST 44 H (14-36) U/L ALT 41 H (4-34) U/L Alkaline Phosphatase 50 (38-126) U/L Lactate Dehydrogenase 401 (313-618) U/L C-Reactive Protein <0.5 (<1.0) mg/dL NT-Pro-B Natriuret Pep pg/mL Total Protein 6.5 (6.3-8.2) g/dL Albumin 3.9 (3.5-5.0) g/dL - Radiology Data Radiology results: report reviewed (CTa chest is positive for COVID pna), image reviewed Disposition Clinical Impression: Acute upper respiratory infection, Coronavirus infection, Bronchospasm Disposition: HOME SELF-CARE Condition: Good Instructions (If sedation given, give patient instructions): Coronavirus Disease 2019 (COVID-19), Bronchospasm (ED) Is patient prescribed a controlled substance at d/c from ED?: No Referrals: Toya Barajas MD [Primary Care Provider] - 1-2 days
[2020-12-11 01:34] LABS: Basophils % (A) 0 %; Eosinophils # (A) 0.1 k/uL (0-0.7); Eosinophils % (A) 2 %; HCT 39.4 % (34.0-46.0); HGB 12.9 gm/dL (11.4-16.0); Lymphocytes # (A) 2.3 k/uL (1.0-4.8); Lymphocytes % (A) 42 %; MCH 29.9 pg (25.0-35.0); MCHC 32.7 g/dL (31.0-37.0); MCV 91.4 fL (80.0-100.0); Mean Platelet Volume 9.4; Monocytes # (A) 0.3 k/uL (0-1.0); Monocytes % (A) 5 %; Neutrophils # (A) 2.7 k/uL (1.3-7.7); Neutrophils % (A) 50 %; Platelet Count 169 k/uL (150-450); RBC 4.31 m/uL (3.80-5.40); RDW 12.5 % (11.5-15.5); WBC 5.4 k/uL (3.8-10.6)
[2020-12-11 01:47] LABS: ALT 41 U/L (4-34); AST 44 U/L (14-36); African American GFR (CKD) >90 (>60 ml/min/1.73 sqM); Albumin 3.9 g/dL (3.5-5.0); Alkaline Phosphatase 50 U/L (38-126); Anion Gap 7 mmol/L; Blood Urea Nitrogen 9 mg/dL (7-17); C Reactive Protein <0.5 mg/dL (<1.0); Calcium 9.3 mg/dL (8.4-10.2); Carbon Dioxide 30 mmol/L (22-30); Chloride 102 mmol/L (98-107); Glucose 87 mg/dL (74-99); LDH 401 U/L (313-618); Magnesium 2.3 mg/dL (1.6-2.3); Non-African American GFR(CKD) >90 (>60 ml/min/1.73 sqM); Potassium 4.1 mmol/L (3.5-5.1); Sodium 139 mmol/L (137-145); Total Bilirubin 0.4 mg/dL (0.2-1.3); Total Protein 6.5 g/dL (6.3-8.2)
[2020-12-11 01:49] LABS: Partial Thromboplastin Time 23.6 sec (22.0-30.0); Prothrombin Time 10.3 sec (9.0-12.0)
--- NOTE | 2020-12-11 02:16 | CT ---
EXAMINATION TYPE: CT angio chest DATE OF EXAM: 12/11/2020 COMPARISON: April 06, 2019 HISTORY: PE CT DLP: 239.2 mGycm Automated exposure control for dose reduction was used. CONTRAST: Performed with IV Contrast, patient injected with 60 mL of Isovue 370. Images obtained from the thoracic inlet to the diaphragm with IV contrast. There are 3-D post process ed images. The lungs are clear of infiltrate. There is no pleural effusion. Heart size is normal. There is no pe ricardial effusion. There is no mediastinal adenopathy. There are no hilar masses. There is intact thoracic aorta. There is no aneurysm or dissection. There is normal contrast opacific ation of the pulmonary arteries. There are no filling defects. The bony thorax is intact. There is no compression fracture. Sternum is intact. Upper abdominal soft tissues are intact. There are clips from cholecystectomy. There is large common bile duct. IMPRESSION: No evidence of pulmonary embolism. There is some enlargement of the common bile duct that measures 2 cm and is increased from 1.1 cm on previous exam. Clinical significance is not clear.
== END 2020-12-11 02:49 | disposition home or self-care (01) ==
LOC: EC 20:38
DX: J06.9 Acute upper respiratory infection, unspecified (principal); B97.29 Other coronavirus as the cause of diseases classified elsewhere; J98.01 Acute bronchospasm; F17.200 Nicotine dependence, unspecified, uncomplicated; Z79.1 Long term (current) use of non-steroidal anti-inflammatories (NSAID); Z79.890 Hormone replacement therapy; Z79.899 Other long term (current) drug therapy
CPT/HCPCS: 36415; 94640; 85379; 83880; 80053; 83605; 83615; 83735; 85025; 85610; 85730; 86140; 71275; 96374; 96375; 96361; 99285; J1100; J1885; Q9967

== ENCOUNTER 2021-05-18 16:18 | Emergency (ER) | payer OTHER ==
[2021-05-18 16:53] VITALS: PULSE 98; RESP 18; TEMP 98.3
[2021-05-18] MEDS ORDERED: diphenhydrAMINE 50 MG/ML 1 ML VIAL IVP STA (18:14)
[2021-05-18] MEDS ORDERED: SODIUM CHLORIDE 0.9% 1,000 ML IV STA (18:14)
[2021-05-18] MEDS ORDERED: METOCLOPRAMIDE 5 MG/ML 2 ML VIAL IVP STA (18:14)
--- NOTE | 2021-05-18 18:46 | ED ---
Headache HPI - General Chief Complaint: Headache Stated Complaint: Headache Time Seen by Provider: 05/18/21 17:42 Source: RN notes reviewed Mode of arrival: EMS Limitations: no limitations - History of Present Illness Initial Comments: This is a pleasant 40-year-old female with a history of seizure disorder, mitral valve prolapse, thyroid disorder. She presents with a headache which started about 2:45 PM today. She states it started gradually and progressed throughout the day. She didn't states he was going across her forehead and around the temporal/parietal areas. She exercises the headache has improved at this time. She is stating that is about 6 out of 10 intensity currently. Headache was aching in nature with some throbbing. She states at its worse it was 10 out of 10 with some nausea. No vomiting. Confusion. No vision or hearing disturbance. No numbness or tingling. No gait disturbance. No vertigo. No neck stiffness or discomfort. no fever or chills, no sore throat or difficulty with speech, no chest pain or shortness of breath, no abdominal pain, no nausea or vomiting, no changes in urination or bowel movements, no numbness or tingling, no extremity pain, no skin rashes or lesions. - Related Data Home Medications Medication Instructions Recorded Confirmed Levothyroxine Sodium [Synthroid] 50 mcg PO DAILY 08/03/17 10/11/20 Methadone HCl 75 mg PO DAILY 10/11/20 10/11/20 traZODone HCL 25 mg PO HS 10/11/20 10/11/20 Previous Rx's Medication Instructions Recorded Ibuprofen [Motrin] 600 mg PO Q6HR PRN #30 tab 10/14/20 Aspirin/Acetaminophen/Caffeine 1 each PO BID PRN #24 cap 05/18/21 [Excedrin Migraine Caplet] Allergies Allergy/AdvReac Type Severity Reaction Status Date / Time carbamazepine [From Tegretol] Allergy Rash/Hives Verified 05/18/21 16:51 divalproex sodium Allergy Swelling Verified 05/18/21 16:51 [From Depakote] niacin Allergy Rash/Hives Verified 05/18/21 16:51 nifedipine [From Procardia] Allergy RASH & Verified 05/18/21 16:51 SWELLING diphenhydramine HCl AdvReac MUSCLE Verified 05/18/21 16:51 [From Benadryl] CRAMPS gabapentin [From Neurontin] AdvReac MAKES HER Verified 05/18/21 16:51 FEEL DRUNK pregabalin [From Lyrica] AdvReac MAKES HER Verified 05/18/21 16:51 FEEL DRUNK tramadol HCl [From Ultram] AdvReac SEIZURES Verified 05/18/21 16:51 seizure meds Allergy Rash/Hives Uncoded 05/18/21 16:51 VITAMIN B COMPLEX Allergy Rash/Hives Uncoded 05/18/21 16:51 Review of Systems ROS Statement: Those systems with pertinent positive or pertinent negative responses have been documented in the HPI. ROS Other: All systems not noted in ROS Statement are negative. Past Medical History Past Medical History: Mitral Valve Prolapse (MVP), Seizure Disorder, Thyroid Disorder Additional Past Medical History / Comment(s): CHRONIC NECK AND SHOULDER PAIN, HX KIDNEY STONES, ABD HERNIA, NARCOLEPSY, HX SEIZURE X 1 2012, endometriosis, History of Any Multi-Drug Resistant Organisms: None Reported Past Surgical History: Section, Cholecystectomy, Tubal Ligation Additional Past Surgical History / Comment(s): TL X 2, Past Anesthesia/Blood Transfusion Reactions: No Reported Reaction Past Psychological History: Anxiety, Depression Smoking Status: Current some day smoker Past Alcohol Use History: None Reported Past Drug Use History: None Reported - Past Family History Father Additional Family Medical History / Comment(s): BACK PROBLEMS,DEPRESSION- COMMITTED SUICIDE @ AGE 53 Mother Family Medical History: Osteoarthritis (OA) Additional Family Medical History / Comment(s): COLITIS General Exam - General Exam Comments Initial Comments: Nontoxic appearing female in no acute distress. Cranial nerves II through XII are intact. No focal neurologic findings. Limitations: no limitations General appearance: alert, in no apparent distress Head exam: Present: atraumatic, normocephalic, normal inspection Eye exam: Present: normal appearance, PERRL, EOMI. Absent: scleral icterus, conjunctival injection, periorbital swelling ENT exam: Present: normal exam, mucous membranes moist Neck exam: Present: normal inspection, full ROM, other (Negative Brudzinski's and Kernig's). Absent: tenderness, meningismus, lymphadenopathy Respiratory exam: Present: normal lung sounds bilaterally. Absent: respiratory distress, wheezes, rales, rhonchi, stridor Cardiovascular Exam: Present: regular rate, normal rhythm, normal heart sounds. Absent: systolic murmur, diastolic murmur, rubs, gallop, clicks GI/Abdominal exam: Present: soft, normal bowel sounds. Absent: distended, tenderness, guarding, rebound, rigid Extremities exam: Present: normal inspection, full ROM, normal capillary refill. Absent: tenderness, pedal edema, joint swelling, calf tenderness Back exam: Present: normal inspection Neurological exam: Present: alert, oriented X3, CN II-XII intact, normal gait. Absent: altered, abnormal gait, motor sensory deficit, reflexes normal Expanded Patient oriented to: Present: person, place, time Speech: Present: fluid speech Cranial nerves: EOM's Intact: Normal, Gag Reflex: Normal, Tongue Deviation: Normal, Facial Sensation: Normal, Facial Palsy with Forehead Movement: Normal, Facial Palsy without Forehead Movement: Normal Cerebellar function: Finger to Nose: Normal, Romberg: Normal Eye Response: (4) open spontaneously Motor Response: (6) obeys commands Verbal Response: (5) oriented Psychiatric exam: Present: normal affect, normal mood Skin exam: Present: warm, dry, intact, normal color. Absent: rash Course Vital Signs 05/18/21 16:51 Temperature 98.3 F Pulse Rate 98 Respiratory 18 Rate O2 Sat by Pulse 100 Oximetry - Reevaluation(s) Reevaluation #1: 05/18/21 20:33 Medical record is reviewed Symptoms are improved here in the emergency department Patient is informed of results and questions answered Patient in no distress Reevaluation #2: 05/18/21 20:36 Repeat neurological exam is normal. Alert and oriented 4, cranial nerves II through XII intact. No focal neurologic findings Medical Decision Making - Medical Decision Making Patient had an onset of a headache at 245 which started gradually and progressed. This is out of the or The patient has no history of migraine headaches. Patient much improved at this time only with a mild headache. We discussed pressors cons of computed tomography scan. Given that this is out of urinary the patient. Computed tomography scan was ordered. We'll treat the patient with Reglan and Benadryl and IV fluids while awaiting computed tomography scan results. Patient was told to return to the ER for any signs or symptoms worsen. Told to return immediately if any other problems arise. All questions answered. Treatment plan discussed. Patient in agreement Every effort has been made to ensure accuracy of this dictation. However, due to the limitations of electronic medical records and dictation devices, errors in charting still occur. Computed tomography scan showed no evidence of acute pathology. Patient was better after Reglan and Benadryl. Patient has a regular doctor. We'll have her follow-up. - Lab Data Result diagrams: 05/18/21 18:24 Lab Results 05/18/21 05/18/21 05/18/21 Range/Units 18:24 18:24 18:24 WBC 8.4 (3.8-10.6) k/uL RBC 4.82 (3.80-5.40) m/uL Hgb 14.7 (11.4-16.0) gm/dL Hct 44.5 (34.0-46.0) % MCV 92.2 (80.0-100.0) fL MCH 30.5 (25.0-35.0) pg MCHC 33.1 (31.0-37.0) g/dL RDW 12.3 (11.5-15.5) % Plt Count 189 (150-450) k/uL MPV 9.0 Neutrophils % 79 % Lymphocytes % 16 % Monocytes % 3 % Eosinophils % 1 % Basophils % 0 % Neutrophils # 6.7 (1.3-7.7) k/uL Lymphocytes # 1.3 (1.0-4.8) k/uL Monocytes # 0.3 (0-1.0) k/uL Eosinophils # 0.1 (0-0.7) k/uL Basophils # 0.0 (0-0.2) k/uL ESR 8 (0-20) mm/hr Coronavirus (PCR) Not Detected (Not Detectd) Group A Strep Rapid Negative (Negative) Disposition Clinical Impression: Acute tension headache Disposition: HOME SELF-CARE Condition: Good Instructions (If sedation given, give patient instructions): Tension Headache (ED) Additional Instructions: Follow-up with your regular physician as directed. Return to the ER immediately if any symptoms worsen, new symptoms arise, or any other problems develop. Is patient prescribed a controlled substance at d/c from ED?: No Referrals: Toya Barajas MD [Primary Care Provider] - 1-2 days Time of Disposition: 20:36
[2021-05-18 18:47] LABS: Basophils % (A) 0 %; Eosinophils # (A) 0.1 k/uL (0-0.7); Eosinophils % (A) 1 %; HCT 44.5 % (34.0-46.0); HGB 14.7 gm/dL (11.4-16.0); Lymphocytes # (A) 1.3 k/uL (1.0-4.8); Lymphocytes % (A) 16 %; MCH 30.5 pg (25.0-35.0); MCHC 33.1 g/dL (31.0-37.0); MCV 92.2 fL (80.0-100.0); Monocytes # (A) 0.3 k/uL (0-1.0); Monocytes % (A) 3 %; Neutrophils # (A) 6.7 k/uL (1.3-7.7); Neutrophils % (A) 79 %; Platelet Count 189 k/uL (150-450); RBC 4.82 m/uL (3.80-5.40); RDW 12.3 % (11.5-15.5); WBC 8.4 k/uL (3.8-10.6)
[2021-05-18 19:29] LABS: Erythrocyte Sedimentation Rate 8 mm/hr (0-20)
--- NOTE | 2021-05-18 20:23 | CT ---
EXAMINATION TYPE: CT brain wo con DATE OF EXAM: 05/18/2021 COMPARISON: 11/26/2014 HISTORY: Acute headache, frontal region CT DLP: 1173.4 mGycm Automated exposure control for dose reduction was used. Images of the brain obtained without contrast. Ventricles have normal size. There is no mass effect or midline shift. There is no sign of intracrani al hemorrhage. There is no evidence of cerebral edema. Calvarium is intact. Skull base is intact. The re is normal aeration of the mastoid sinuses. IMPRESSION: Negative unenhanced head CT scan. No change.
== END 2021-05-18 20:50 | disposition home or self-care (01) ==
LOC: EC 16:18
DX: G44.209 Tension-type headache, unspecified, not intractable (principal); E07.9 Disorder of thyroid, unspecified; F41.9 Anxiety disorder, unspecified; F32.A Depression, unspecified; F17.200 Nicotine dependence, unspecified, uncomplicated; Z20.822 Contact with and (suspected) exposure to COVID-19; Z79.82 Long term (current) use of aspirin; Z88.1 Allergy status to other antibiotic agents; Z87.442 Personal history of urinary calculi; Z90.49 Acquired absence of other specified parts of digestive tract; Z98.51 Tubal ligation status
CPT/HCPCS: 99284; 96374; 96375; 96361; 36415; 85652; 85025; 87081; 87430; 87635; 70450; J1200; J2765

== ENCOUNTER 2022-03-28 14:30 | Observation (INO) | payer OTHER ==
[2022-03-28] MEDS ORDERED: ASPIRIN 81 MG PO STA (15:57)
[2022-03-28] MEDS ORDERED: NITROGLYCERIN OINT 1 INCH/GM PACKET TOPICAL STA (15:57)
--- NOTE | 2022-03-28 15:59 | ED ---
General Adult HPI - General Chief complaint: Chest Pain Stated complaint: chest tightness Time Seen by Provider: 03/28/22 15:35 Source: patient, RN notes reviewed Mode of arrival: ambulatory Limitations: no limitations - History of Present Illness Initial comments: Patient is a pleasant 41-year-old female presenting to the emergency department with concerns with chest discomfort. Onset of symptoms was 3-4 days ago. Discomfort slowly worsening however is not that bad at this time. Discomfort starts pressure. There is some associated mild dyspnea. Both worsen with exertion. No nausea. Patient has follow-up with sweaty. Patient does have history of previous chest pain years ago however does not regularly get this anymore. - Related Data Home Medications Medication Instructions Recorded Confirmed Levothyroxine Sodium [Synthroid] 50 mcg PO DAILY 08/03/17 03/28/22 traZODone HCL 50 mg PO HS 10/11/20 03/28/22 Methadone HCl [Methadone Intensol] 85 mg PO DIRECTED 05/18/21 03/28/22 Dextroamphetamine/Amphetamine 10 mg PO DAILY 03/28/22 03/28/22 [Adderall] Allergies Allergy/AdvReac Type Severity Reaction Status Date / Time carbamazepine [From Tegretol] Allergy Rash/Hives Verified 03/28/22 16:15 divalproex sodium Allergy Swelling Verified 03/28/22 16:15 [From Depakote] niacin Allergy Rash/Hives Verified 03/28/22 16:15 nifedipine [From Procardia] Allergy RASH & Verified 03/28/22 16:15 SWELLING diphenhydramine HCl AdvReac MUSCLE Verified 03/28/22 16:15 [From Benadryl] CRAMPS gabapentin [From Neurontin] AdvReac MAKES HER Verified 03/28/22 16:15 FEEL DRUNK pregabalin [From Lyrica] AdvReac MAKES HER Verified 03/28/22 16:15 FEEL DRUNK tramadol HCl [From Ultram] AdvReac SEIZURES Verified 03/28/22 16:15 seizure meds Allergy Rash/Hives Uncoded 05/18/21 16:51 VITAMIN B COMPLEX Allergy Rash/Hives Uncoded 05/18/21 16:51 Review of Systems ROS Statement: Those systems with pertinent positive or pertinent negative responses have been documented in the HPI. ROS Other: All systems not noted in ROS Statement are negative. Constitutional: Denies: fever Eyes: Denies: eye pain ENT: Denies: ear pain Respiratory: Reports: as per HPI Cardiovascular: Reports: as per HPI, chest pain Endocrine: Denies: fatigue Gastrointestinal: Denies: abdominal pain Genitourinary: Denies: urgency Musculoskeletal: Denies: back pain Skin: Denies: rash Neurological: Denies: weakness Past Medical History Past Medical History: Mitral Valve Prolapse (MVP), Seizure Disorder, Thyroid Disorder Additional Past Medical History / Comment(s): CHRONIC NECK AND SHOULDER PAIN, HX KIDNEY STONES, ABD HERNIA, NARCOLEPSY, HX SEIZURE X 1 2012, endometriosis, History of Any Multi-Drug Resistant Organisms: None Reported Past Surgical History: Section, Cholecystectomy, Tubal Ligation Additional Past Surgical History / Comment(s): TL X 2, uterine ablation Past Anesthesia/Blood Transfusion Reactions: No Reported Reaction Past Psychological History: Anxiety, Depression Smoking Status: Current some day smoker Past Alcohol Use History: None Reported Past Drug Use History: None Reported - Past Family History Father Additional Family Medical History / Comment(s): BACK PROBLEMS,DEPRESSION- COMMITTED SUICIDE @ AGE 53 Mother Family Medical History: Osteoarthritis (OA) Additional Family Medical History / Comment(s): COLITIS General Exam Limitations: no limitations General appearance: alert, in no apparent distress Head exam: Present: normocephalic Eye exam: Present: normal appearance Neck exam: Present: normal inspection Respiratory exam: Present: normal lung sounds bilaterally. Absent: chest wall tenderness Cardiovascular Exam: Present: regular rate, normal rhythm Expanded Peripheral pulses: 2+: Radial (R), Radial (L), Dorsalis Pedis (R), Dorsalis Pedis (L) GI/Abdominal exam: Present: soft. Absent: tenderness Extremities exam: Present: normal inspection. Absent: pedal edema, calf tenderness Neurological exam: Present: alert Psychiatric exam: Present: normal affect, normal mood Skin exam: Present: normal color Course Vital Signs 03/28/22 03/28/22 03/28/22 14:36 17:13 19:00 Temperature 98 F Pulse Rate 96 76 83 Respiratory 20 15 18 Rate Blood Pressure 106/70 119/70 109/61 O2 Sat by Pulse 98 99 99 Oximetry EKG Findings - EKG Results: EKG: interpreted by ERMD (Right ventricular conduction delay), sinus rhythm, normal axis, normal ST/T Medical Decision Making - Medical Decision Making Was pt. sent in by a medical professional or institution (, [facility], COMMUNITY MENTAL HEALTH SOCIAL WORKER, urgent care, hospital, or skilled nursing...) When possible be specific @ -No Did you speak to anyone other than the patient for history (EMS, parent, family, police, friend...)? What history was obtained from this source @ -No Did you review nursing and triage notes (agree or disagree)? Why? @ -I reviewed and agree with nursing and triage notes Were old charts reviewed (outside hosp., previous admission, EMS record, old EKG, old radiological studies, urgent care reports/EKG's, skilled nursing records)? Report findings @ -No old charts were reviewed Differential Diagnosis (chest pain, altered mental status, abdominal pain women, abdominal pain men, vaginal bleeding, weakness, fever, dyspnea, syncope, headache, dizziness, GI bleed, back pain, seizure, CVA, palpatations, mental health)? @ -Differential Chest Pain: Stable Angina, Unstable Angina, STEMI, NSTEMI Aortic Dissection, Pneumothorax, Musculoskeletal, Esophageal Spasm GERD, Cholecystitis, Pancreatitis, Zoster, this is not meant to be an all-inclusive list. EKG interpreted by me (3pts min.). @ -As above X-rays interpreted by me (1pt min.). @ -Chest x-ray interpreted by myself shows no acute process CT interpreted by me (1pt min.). @ - U/S interpreted by me (1pt. min.). @ -[None done] What testing was considered but not performe or refusd? (CT, X-rays, U/S, labs)? Why? @ -[None] What meds were considered but not given or refuse? Wh? @ -[None] Did you discuss the management of the patient wit othr professionals (professionals i.e. , [facility], COMMUNITY MENTAL HEALTH SOCIAL WORKER, lab, RT, psych nurse, social sciences chair, electorate officer, teacher, staff nuclear weapons officer, director of casework services)? Give summary @ case discussed with Dr. Moody, who will admit his patient.as smoking cessation discussed for >3mins.? @ -[N] as critical care preformed (if so, how long)? @ -No Were there social determinants of health that impacedcare today? How? (Homelessness, low income, unemployed, alcoholism, drug addiction, transpo rtation, low edu. Level, literacy, decrease access to med. care, half-way, rehab)? @ -[No] Was there de-escalation of care discussed even if teydeclined (Discuss DNR or withdrawal of care, Hospice)? DNR status @ -[No] What co-morbidities impacted this encounter? (DM, HN,Smoking, COPD, CAD, Cancer, CVA, ARF, Chemo, Hep., AIDS, mental health diagnosis, sleep apnea, morbid obesity)? @ -[None] Was patient admitted / discharged? Hospital cours, metion meds given and route, prescriptions, significant lab abnormalities, going to OR and other pertinent info. @ patient reevaluated and updated. Admission orders written. ndiagnosed new problem with uncertai prognosis? @ [No] Drug Therapy requiring intensive monitoring for toxciy (Heparin, Nitro, Insulin, Cardizem)? @ -[No] Were any procedures done? @ -[No] Diagnosis/sympto? Chest painor Chronic,orAcute on Chronic? @ AcuteUncomplicated (without systemic symptoms) or Cmplicatd (systemic symptoms)? @ -[default] Side effects of treatment? @ -[No] Exacerbatin, Progession, or Severe Exacerbation? [No] Poses a threat to life or bodily function? How? ([facility], [place], [place], pneumonia, PE, COPD, DKA, ARF, appy, cholecystitis, CVA, Diverticulitis, Homicidal, Suicidal, threat to staff... and all critical care pts) potential threat if chest pain is cardiac or other severe origin - Lab Data Result diagrams: 03/28/22 16:20 03/28/22 16:20 Lab Results 03/28/22 03/28/22 03/28/22 Range/Units 16:20 16:20 16:20 WBC 5.2 (3.8-10.6) k/uL RBC 4.45 (3.80-5.40) m/uL Hgb 13.1 (11.4-16.0) gm/dL Hct 39.2 (34.0-46.0) % MCV 88.0 (80.0-100.0) fL MCH 29.3 (25.0-35.0) pg MCHC 33.3 (31.0-37.0) g/dL RDW 12.6 (11.5-15.5) % Plt Count 170 (150-450) k/uL MPV 8.9 Neutrophils % 66 % Lymphocytes % 26 % Monocytes % 4 % Eosinophils % 2 % Basophils % 0 % Neutrophils # 3.4 (1.3-7.7) k/uL Lymphocytes # 1.4 (1.0-4.8) k/uL Monocytes # 0.2 (0-1.0) k/uL Eosinophils # 0.1 (0-0.7) k/uL Basophils # 0.0 (0-0.2) k/uL PT 10.5 (9.0-12.0) sec INR 1.0 (<1.2) APTT 23.8 (22.0-30.0) sec D-Dimer 0.27 (<0.60) mg/L FEU Sodium 138 (137-145) mmol/L Potassium 4.4 (3.5-5.1) mmol/L Chloride 105 (98-107) mmol/L Carbon Dioxide 25 (22-30) mmol/L Anion Gap 8 mmol/L BUN 11 (7-17) mg/dL Creatinine 0.65 (0.52-1.04) mg/dL Est GFR (CKD-EPI)AfAm >90 (>60 ml/min/1.73 sqM) Est GFR (CKD-EPI)NonAf >90 (>60 ml/min/1.73 sqM) Glucose 94 (74-99) mg/dL Calcium 9.3 (8.4-10.2) mg/dL Magnesium 2.0 (1.6-2.3) mg/dL Total Bilirubin 0.4 (0.2-1.3) mg/dL AST 26 (14-36) U/L ALT 23 (4-34) U/L Alkaline Phosphatase 41 (38-126) U/L Troponin I (0.000-0.034) ng/mL NT-Pro-B Natriuret Pep pg/mL Total Protein 7.1 (6.3-8.2) g/dL Albumin 4.4 (3.5-5.0) g/dL 03/28/22 03/28/22 Range/Units 16:20 16:20 WBC (3.8-10.6) k/uL RBC (3.80-5.40) m/uL Hgb (11.4-16.0) gm/dL Hct (34.0-46.0) % MCV (80.0-100.0) fL MCH (25.0-35.0) pg MCHC (31.0-37.0) g/dL RDW (11.5-15.5) % Plt Count (150-450) k/uL MPV Neutrophils % % Lymphocytes % % Monocytes % % Eosinophils % % Basophils % % Neutrophils # (1.3-7.7) k/uL Lymphocytes # (1.0-4.8) k/uL Monocytes # (0-1.0) k/uL Eosinophils # (0-0.7) k/uL Basophils # (0-0.2) k/uL PT (9.0-12.0) sec INR (<1.2) APTT (22.0-30.0) sec D-Dimer (<0.60) mg/L FEU Sodium (137-145) mmol/L Potassium (3.5-5.1) mmol/L Chloride (98-107) mmol/L Carbon Dioxide (22-30) mmol/L Anion Gap mmol/L BUN (7-17) mg/dL Creatinine (0.52-1.04) mg/dL Est GFR (CKD-EPI)AfAm (>60 ml/min/1.73 sqM) Est GFR (CKD-EPI)NonAf (>60 ml/min/1.73 sqM) Glucose (74-99) mg/dL Calcium (8.4-10.2) mg/dL Magnesium (1.6-2.3) mg/dL Total Bilirubin (0.2-1.3) mg/dL AST (14-36) U/L ALT (4-34) U/L Alkaline Phosphatase (38-126) U/L Troponin I <0.012 (0.000-0.034) ng/mL NT-Pro-B Natriuret Pep 47 pg/mL Total Protein (6.3-8.2) g/dL Albumin (3.5-5.0) g/dL Disposition Clinical Impression: Chest pain Disposition: ADMITTED IP TO THIS [facility] Is patient prescribed a controlled substance at d/c from ED?: No Referrals: Raffy Aguilar MD [Primary Care Provider] - 1-2 days Time of Disposition: 19:11
[2022-03-28 16:31] LABS: Basophils % (A) 0 %; Eosinophils # (A) 0.1 k/uL (0-0.7); Eosinophils % (A) 2 %; HCT 39.2 % (34.0-46.0); HGB 13.1 gm/dL (11.4-16.0); Lymphocytes # (A) 1.4 k/uL (1.0-4.8); Lymphocytes % (A) 26 %; MCH 29.3 pg (25.0-35.0); MCHC 33.3 g/dL (31.0-37.0); Mean Platelet Volume 8.9; Monocytes # (A) 0.2 k/uL (0-1.0); Monocytes % (A) 4 %; Neutrophils # (A) 3.4 k/uL (1.3-7.7); Neutrophils % (A) 66 %; Platelet Count 170 k/uL (150-450); RBC 4.45 m/uL (3.80-5.40); RDW 12.6 % (11.5-15.5); WBC 5.2 k/uL (3.8-10.6)
--- NOTE | 2022-03-28 16:33 | XR ---
EXAMINATION TYPE: XR chest 2V DATE OF EXAM: 03/28/2022 COMPARISON: 04/06/2019 HISTORY: Chest pain TECHNIQUE: Frontal and lateral views of the chest are obtained. FINDINGS: There is no focal air space opacity. No evidence for pneumothorax. No pleural effusion. The cardiac silhouette size is within normal limits. The osseous structures are grossly intact. IMPRESSION: 1. No acute cardiopulmonary process.
[2022-03-28 16:42] LABS: ALT 23 U/L (4-34); African American GFR (CKD) >90 (>60 ml/min/1.73 sqM); Albumin 4.4 g/dL (3.5-5.0); Anion Gap 8 mmol/L; Blood Urea Nitrogen 11 mg/dL (7-17); Calcium 9.3 mg/dL (8.4-10.2); Carbon Dioxide 25 mmol/L (22-30); Chloride 105 mmol/L (98-107); Glucose 94 mg/dL (74-99); Non-African American GFR(CKD) >90 (>60 ml/min/1.73 sqM); Sodium 138 mmol/L (137-145); Total Bilirubin 0.4 mg/dL (0.2-1.3); Total Protein 7.1 g/dL (6.3-8.2)
[2022-03-28 16:51] LABS: AST 26 U/L (14-36); Alkaline Phosphatase 41 U/L (38-126); Potassium 4.4 mmol/L (3.5-5.1)
[2022-03-28 16:53] LABS: Partial Thromboplastin Time 23.8 sec (22.0-30.0); Prothrombin Time 10.5 sec (9.0-12.0)
[2022-03-28] MEDS ORDERED: NITROGLYCERIN SL TABS 0.4 MG TAB SUBLINGUAL PRN (19:11)
[2022-03-28] MEDS ORDERED: traZODone HCL 50 MG TAB PO SCH (21:00)
[2022-03-29] MEDS: NITROGLYCERIN OINT 1 INCH/GM PACKET TOPICAL SCH ×3 (01:20→11:01)
[2022-03-29] MEDS ORDERED: LEVOTHYROXINE 50 MCG TAB PO SCH (06:30)
[2022-03-29 07:31] VITALS: RESP 18
[2022-03-29] MEDS ORDERED: NON FORMULARY DRUG (Dextroamphetamine/Amphetamine [Adderall] 10 MG Tablet) PO SCH (09:00)
[2022-03-29] MEDS ORDERED: ASPIRIN 325 MG TAB PO SCH (09:00)
[2022-03-29] MEDS ORDERED: METHADONE 10 MG TAB PO SCH (09:00)
[2022-03-29] MEDS ORDERED: METHADONE 5 MG TAB PO SCH (09:00)
--- NOTE | 2022-03-29 10:51 | P.CRDCN ---
History of Present Illness Consult date: 03/29/22 Consult reason: chest pain History of present illness: History of present illness: This is a 41-year-old female with no previous cardiac history. She was seen by Dr. Casey in the office in reduced to some precordial chest discomfort which was thought to be musculoskeletal. She has a past medical history significant for history of seizure, thyroid disorder, kidney stones, tobacco use, anxiety, chronic pain syndrome.We have been asked to see the patient regarding chest pain. Patient states that she has had chest pain since Sunday evening which is been constant and she describes as a tightness across the middle of her chest and also into the left shoulder she experiences pain. She thought it was anxiety but it did not go away since Sunday so she decided to come in the hospital for further evaluation. She also said that she had some dizziness intermittently. She could feel in the emergency center that she had a strong heartbeat but not really rapid. No nausea or vomiting. She has had some heartburn and some shortness of breath. No cough or sputum production. No fever or chills. She states that when she walks up to the third floor of her mother's apartment her legs were feeling weak. Family history of coronary artery disease at less than 60 years old. EKG normal sinus rhythm with no acute ST changes 2 Chest x-ray no acute findings CBC, CMP, magnesium all within normal limits. Troponin negative 3 Echocardiogram 2017 revealed EF 55% with mild MR, mild TR Review Of Systems: At the time of my evaluation: Constitutional: No fever, no chills. No weakness, fatigue or lethargy. EENT: No headache. No dizziness. Lungs: No shortness of breath, cough, no sputum production. No wheezing. Cardiovascular: No chest pain, no lower extremity edema. No palpitations. No paroxysmal nocturnal dyspnea. No orthopnea. No lightheadedness or dizziness. No syncopal episodes. Abdominal: No abdominal pain. No nausea, vomiting. No diarrhea. No constipation. No bloody or tarry stools. Genitourinary: No dysuria.. No urinary retention. Musculoskeletal: No myalgias. No muscle weakness, no frequent falls. No back pain. No neck pain. Left shoulder discomfort. Integumentary: No wounds. No rash. No unusual bruising. Neurologic: No aphasia. No facial droop. No change in mentation. No head injury. No headache. Psychiatric: No depression. No anxiety. Endocrine: No abnormal blood sugars. Physical examination: Gen: This is a 41-year-old female. She is resting in bed and appears to be comfortable and in no acute distress. VS: reviewed HEENT: Head is atraumatic, normocephalic. Pupils equal, round. Sclerae is anicteric. NECK: Supple. No JVD. No lymphadenopathy. No thyromegaly. LUNGS: Clear to auscultation. No wheezes or rhonchi. No intercostal retractions. HEART: Regular rate and rhythm. No murmur. No chest wall tenderness. ABDOMEN: Soft. Bowel sounds are present. No masses. No tenderness. EXTREMITIES: No pedal edema. No calf tenderness. NEUROLOGICAL: Patient is awake, alert and oriented x3. Cranial nerves 2 through 12 are grossly intact. Assessment: Atypical chest pain, acute coronary syndrome ruled out Plan: Obtain TSH and free T4 Obtain exercise stress echocardiogram today Obtain 2-D echocardiogram and Doppler study to assess cardiac structure and func tion Further recommendations to follow based upon clinical course Thank you kindly for this consultation. Nurse practitioner note has been reviewed, I agree with documented findings and plan of care. Patient was seen and examined. Past Medical History Past Medical History: Mitral Valve Prolapse (MVP), Seizure Disorder, Thyroid Disorder Additional Past Medical History / Comment(s): HX KIDNEY STONES, ABD HERNIA, NARCOLEPSY, HX SEIZURE X 1 2012, endometriosis, History of Any Multi-Drug Resistant Organisms: None Reported Past Surgical History: Section, Cholecystectomy, Tubal Ligation Additional Past Surgical History / Comment(s): TL X 2, uterine ablation Past Anesthesia/Blood Transfusion Reactions: No Reported Reaction Past Psychological History: Anxiety, Depression Additional Psychological History / Comment(s): NOT CURRENTLY TAKING ANY MEDS Smoking Status: Current some day smoker Past Alcohol Use History: None Reported Additional Past Alcohol Use History / Comment(s): STARTED SMOKING AT AGE 12- (1992) SMOKES 4 CIGARETTES A DAY- SOME DAYS NONE Past Drug Use History: None Reported - Past Family History Father Additional Family Medical History / Comment(s): BACK PROBLEMS,DEPRESSION- COMMITTED SUICIDE @ AGE 53 Mother Family Medical History: Osteoarthritis (OA) Additional Family Medical History / Comment(s): COLITIS Medications and Allergies Home Medications Medication Instructions Recorded Confirmed Type Levothyroxine Sodium [Synthroid] 50 mcg PO DAILY 08/03/17 03/28/22 History traZODone HCL 50 mg PO HS 10/11/20 03/28/22 History Methadone HCl [Methadone Intensol] 85 mg PO DAILY 05/18/21 03/29/22 History Dextroamphetamine/Amphetamine 10 mg PO DAILY 03/28/22 03/28/22 History [Adderall] Allergies Allergy/AdvReac Type Severity Reaction Status Date / Time carbamazepine [From Tegretol] Allergy Rash/Hives Verified 03/28/22 16:15 divalproex sodium Allergy Swelling Verified 03/28/22 16:15 [From Depakote] niacin Allergy Rash/Hives Verified 03/28/22 16:15 nifedipine [From Procardia] Allergy RASH & Verified 03/28/22 16:15 SWELLING diphenhydramine HCl AdvReac MUSCLE Verified 03/28/22 16:15 [From Benadryl] CRAMPS gabapentin [From Neurontin] AdvReac MAKES HER Verified 03/28/22 16:15 FEEL DRUNK pregabalin [From Lyrica] AdvReac MAKES HER Verified 03/28/22 16:15 FEEL DRUNK tramadol HCl [From Ultram] AdvReac SEIZURES Verified 03/28/22 16:15 seizure meds Allergy Rash/Hives Uncoded 05/18/21 16:51 VITAMIN B COMPLEX Allergy Rash/Hives Uncoded 05/18/21 16:51 Physical Exam Vitals: Vital Signs Temp Pulse Pulse Resp BP BP Pulse Ox 03/29/22 07:00 98.4 F 75 18 95/63 99 03/29/22 01:49 98.4 F 89 16 93/54 98 03/28/22 20:46 98.8 F 79 16 108/65 100 03/28/22 19:17 86 16 114/81 100 03/28/22 19:00 83 18 109/61 99 03/28/22 17:13 76 15 119/70 99 03/28/22 14:36 98 F 96 20 106/70 98 Intake and Output 03/28/22 03/29/22 03/29/22 22:59 06:59 14:59 Other: # Voids 1 1 Weight 78.925 kg Results 03/28/22 16:20 03/28/22 16:20 Cardiac Enzymes 03/28/22 03/28/22 03/28/22 Range/Units 16:20 16:20 19:56 AST 26 (14-36) U/L Troponin I <0.012 <0.012 (0.000-0.034) ng/mL 03/28/22 Range/Units 22:12 AST (14-36) U/L Troponin I <0.012 (0.000-0.034) ng/mL Coagulation 03/28/22 Range/Units 16:20 PT 10.5 (9.0-12.0) sec APTT 23.8 (22.0-30.0) sec CBC 03/28/22 Range/Units 16:20 WBC 5.2 (3.8-10.6) k/uL RBC 4.45 (3.80-5.40) m/uL Hgb 13.1 (11.4-16.0) gm/dL Hct 39.2 (34.0-46.0) % Plt Count 170 (150-450) k/uL Comprehensive Metabolic Panel 03/28/22 Range/Units 16:20 Sodium 138 (137-145) mmol/L Potassium 4.4 (3.5-5.1) mmol/L Chloride 105 (98-107) mmol/L Carbon Dioxide 25 (22-30) mmol/L BUN 11 (7-17) mg/dL Creatinine 0.65 (0.52-1.04) mg/dL Glucose 94 (74-99) mg/dL Calcium 9.3 (8.4-10.2) mg/dL AST 26 (14-36) U/L ALT 23 (4-34) U/L Alkaline Phosphatase 41 (38-126) U/L Total Protein 7.1 (6.3-8.2) g/dL Albumin 4.4 (3.5-5.0) g/dL Current Medications Generic Name Dose Route Start Last Admin Trade Name Freq PRN Reason Stop Dose Admin Aspirin 325 mg 03/29/22 09:00 Aspirin 325 Mg Tab PO DAILY JOVANNI Levothyroxine Sodium 50 mcg 03/29/22 06:30 03/29/22 05:50 Levothyroxine 50 Mcg Tab PO 50 mcg DAILY@0630 [facility] Administration Nitroglycerin 0.4 mg 03/28/22 19:11 Nitroglycerin Sl Tabs 0.4 Mg Tab SUBLINGUAL Q5M PRN Chest Pain Nitroglycerin 1 inch 03/29/22 00:00 03/29/22 05:52 Nitroglycerin Oint 1 Inch/Gm Packet TOPICAL Not Given Q6HR JOVANNI Non-Formulary Medication 10 mg 03/29/22 09:00 Dextroamphetamine/Amphetamine [Adderall] PO DAILY JOVANNI Non-Formulary Medication 85 mg 03/29/22 07:30 Methadone Hcl [Methadone Intensol] PO DIRECTED [facility] Sodium Chloride 10 ml 03/28/22 21:00 03/28/22 20:09 Sodium Chloride 0.9% Flush 10 Ml Syringe IV Not Given BID JOVANNI Trazodone HCl 50 mg 03/28/22 21:00 03/28/22 22:19 Trazodone Hcl 50 Mg Tab PO 50 mg HS JOVANNI Administration Intake and Output 03/28/22 03/29/22 03/29/22 22:59 06:59 14:59 Other: # Voids 1 1 Weight 78.925 kg 03/28/22 16:20 03/28/22 16:20
[2022-03-29 11:02] LABS: Chol/HDL Ratio 3.29 Ratio; LDL Cholesterol,Calculated 83.1 mg/dL (0.0-131.0); VLDL Calculation 12.32 mg/dL (5.00-40.00)
--- NOTE | 2022-03-29 11:39 | P.HPIM ---
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 Denies syncope. Denies cough congestion, fever or chills .Denies nausea vomiting or diarrhea. Denies abdominal pain. Patient attributes it to being under significant stress, anxiety. Symptoms relieved with nitroglycerin in the ER. Reports family history -mother had CAD without history of RI.EKG reported normal sinus rhythm with no acute ST changes, troponins negative 3 ,chest x-ray reported nonacute,CBC, CMP, magnesium unremarkable. Review of Systems ROS Statement: Those systems with pertinent positive or pertinent negative responses have been documented in the HPI. ROS Other: All systems not noted in ROS Statement are negative. Past Medical History Past Medical History: Mitral Valve Prolapse (MVP), Seizure Disorder, Thyroid Disorder Additional Past Medical History / Comment(s): HX KIDNEY STONES, ABD HERNIA, NARCOLEPSY, HX SEIZURE X 1 2012, endometriosis, History of Any Multi-Drug Resistant Organisms: None Reported Past Surgical History: Section, Cholecystectomy, Tubal Ligation Additional Past Surgical History / Comment(s): TL X 2, uterine ablation Past Anesthesia/Blood Transfusion Reactions: No Reported Reaction Past Psychological History: Anxiety, Depression Additional Psychological History / Comment(s): NOT CURRENTLY TAKING ANY MEDS Smoking Status: Current some day smoker Past Alcohol Use History: None Reported Additional Past Alcohol Use History / Comment(s): STARTED SMOKING AT AGE 12- (1992) SMOKES 4 CIGARETTES A DAY- SOME DAYS NONE Past Drug Use History: None Reported - Past Family History Father Additional Family Medical History / Comment(s): BACK PROBLEMS,DEPRESSION- COMMITTED SUICIDE @ AGE 53 Mother Family Medical History: Osteoarthritis (OA) Additional Family Medical History / Comment(s): COLITIS Medications and Allergies Home Medications Medication Instructions Recorded Confirmed Type Levothyroxine Sodium [Synthroid] 50 mcg PO DAILY 08/03/17 03/28/22 History traZODone HCL 50 mg PO HS 10/11/20 03/28/22 History Methadone HCl [Methadone Intensol] 85 mg PO DAILY 05/18/21 03/29/22 History Dextroamphetamine/Amphetamine 10 mg PO DAILY 03/28/22 03/28/22 History [Adderall] Allergies Allergy/AdvReac Type Severity Reaction Status Date / Time carbamazepine [From Tegretol] Allergy Rash/Hives Verified 03/28/22 16:15 divalproex sodium Allergy Swelling Verified 03/28/22 16:15 [From Depakote] niacin Allergy Rash/Hives Verified 03/28/22 16:15 nifedipine [From Procardia] Allergy RASH & Verified 03/28/22 16:15 SWELLING diphenhydramine HCl AdvReac MUSCLE Verified 03/28/22 16:15 [From Benadryl] CRAMPS gabapentin [From Neurontin] AdvReac MAKES HER Verified 03/28/22 16:15 FEEL DRUNK pregabalin [From Lyrica] AdvReac MAKES HER Verified 03/28/22 16:15 FEEL DRUNK tramadol HCl [From Ultram] AdvReac SEIZURES Verified 03/28/22 16:15 seizure meds Allergy Rash/Hives Uncoded 05/18/21 16:51 VITAMIN B COMPLEX Allergy Rash/Hives Uncoded 05/18/21 16:51 Physical Exam Vitals: Vital Signs Temp Pulse Pulse Resp BP BP Pulse Ox 03/29/22 09:25 98 03/29/22 07:00 98.4 F 75 18 95/63 99 03/29/22 01:49 98.4 F 89 16 93/54 98 03/28/22 20:46 98.8 F 79 16 108/65 100 03/28/22 19:17 86 16 114/81 100 03/28/22 19:00 83 18 109/61 99 03/28/22 17:13 76 15 119/70 99 03/28/22 14:36 98 F 96 20 106/70 98 Intake and Output 03/28/22 03/29/22 03/29/22 22:59 06:59 14:59 Other: # Voids 1 1 Weight 78.925 kg VS: As above, reviewed GENERAL: Well-nourished ,Alert and oriented 3, no acute distress HEENT: Atraumatic, Normocephalic , Pupils equal round ,reactive to light, sclera anicteric, conjunctiva are normal. NECK: Supple , No JVD, No lymphadenopathy. No thyromegaly. LUNGS: Unlabored ,Breath sounds clear to auscultation bilaterally and equal. No wheezes rales or rhonchi. HEART: Regular rate and rhythm without murmurs, rubs or gallops.S1S2 Normal ABDOMEN: Soft, nontender, normoactive bowel sounds. No guarding, no rebound. No masses appreciated. EXTREMITIES: No edema. No clubbing or cyanosis. No calf tenderness. NEUROLOGICAL: Cranial nerves II through XII grossly intact. SKIN: Warm, Dry, no rashes noted. Results CBC & Chem 7: 03/28/22 16:20 03/28/22 16:20 Thrombosis Risk Factor Assmnt - Choose All That Apply Any of the Below Risk Factors Present?: No Other Risk Factors: No Other congenital or acquired thrombophilia - If yes, enter type in comment: No Thrombosis Risk Factor Assessment Level: Very Low Risk Assessment and Plan Assessment: Chest pressure, atypical, troponins negative 3, cardiology following Anxiety Depression Bipolar disorder Hypothyroidism Ongoing nicotine dependence Plan: Continue on current medication regime ,monitoring and symptomatic treatment. Echo pending. Evaluated by cardiology, Stress echo pending. BuSpar initiated for patient's anxiety/ depression. Home medication, Methadone has been resumed. Adderall has been temporarily placed on hold as it can increase h eart rate. Patient will be discharged home today in stable condition with guarded prognosis pending stress test results, final DC recommendations and clearance per cardiology. Discharge Medication List Levothyroxine Sodium [Synthroid] 50 mcg PO DAILY 08/03/17 [History] traZODone HCL 50 mg PO HS 10/11/20 [History] Methadone HCl [Methadone Intensol] 85 mg PO DAILY 05/18/21 [History] Dextroamphetamine/Amphetamine [Adderall] 10 mg PO DAILY 03/28/22 [History] busPIRone HCl [Buspar] 5 mg PO BID #28 tab 03/29/22 [Rx] The impression and plan of care has been dictated as directed. : I performed a history and examination of this patient, discussed the same with the dictator. I agree with the dictator's note ,documented as a scribe. Any additional findings or plans will be noted.
[2022-03-29] MEDS ORDERED: busPIRone HCl 5 MG TAB PO SCH (11:45)
[2022-03-29 14:47] VITALS: BP 94/61; PULSE 78; TEMP 98
--- NOTE | 2022-03-29 16:28 | CA ---
Stress Echo Report Adilene Appiah Age: 41 Gender: F : 1980 Exam Date: 03/29/2022 11:51 Exam Location: [place] [facility] Ht (in): 69 Wt (lb): 174 Ordering Physician: Susie Neil Referring Physician: [id number] Profile Saw Operator: Rae Salas RDCS Technologist Procedure CPT: Indication: CP ICD-9 Codes: Rhythm: Patient History: Cardiac Medications: Medications in past 24 hours: Contrast: N/A Stress Results Protocol: Huey Total dose(mL): Exercise Duration (min:sec): Max ST Depression (mm): Angina Score: Carmichael Score: METS: 7.9 Resting HR: 103 Resting BP: 104 / 52 Peak HR: 169 Peak BP: 149 / 85 Max Predicted HR: 180 94 % Max Predicted HR Target HR: 153 Double Product: [id number] Stress Summary: BP Response: Reason for Termination: Pt reaached target heart rate Cardiac Symptoms: ECG Analysis Resting ECG: Normal sinus rhythm normal axis normal intervals Stress ECG: Patient exercised on Huey protocol for a total of 6 and half minutes achieving 8 metastases 85% of predicted maximal heart rate without chest pain or diagnostic ST segment depression Arrhythmia: Echo Analysis Resting Echo: Normal left ventricle a size wall motion systolic function Peak Echo Analysis: Normal hyperdynamic response of all segments of myocardium noted MEASUREMENTS (Male/Female) Normal Values CONCLUSIONS About average exercise tolerance Negative stress echo Dr. Anatoliy Fuentes MD (Electronically Signed) Final Date: 29 March 2022 16:27
--- NOTE | 2022-03-29 16:29 | CA ---
Transthoracic Echo Report Name: Adilene Appiah Age: 41 Gender: F : 1980 Exam Date: 03/29/2022 12:10 Exam Location: [place] [facility] Ht (in): 69 Wt (lb): 174 Ordering Physician: Susie Neil Attending/Referring Phys: [id number], Rashaad Brazing Machine Operator Rae Salas RDCS Procedure CPT: Indications: LVF Cardiac Hx: Technical Quality: Contrast 1: Total Dose (mL): Contrast 2: Total Dose (mL): MEASUREMENTS (Male / Female) Normal Values 2D ECHO LV Diastolic Diameter PLAX 3.3 cm 4.2 - 5.9 / 3.9 - 5.3 cm LV Systolic Diameter PLAX 2.4 cm IVS Diastolic Thickness 0.7 cm 0.6 - 1.0 / 0.6 - 0.9 cm LVPW Diastolic Thickness 1.2 cm 0.6 - 1.0 / 0.6 - 0.9 cm LV Relative Wall Thickness 0.6 RV Internal Dim ED PLAX 2.5 cm LA Systolic Diameter LX 2.0 cm 3.0 - 4.0 / 2.7 - 3.8 cm M-MODE Aortic Root Diameter MM 2.6 cm LA Systolic Diameter MM 2.9 cm LA Ao Ratio MM 1.1 MV E Point Septal Separation 0.3 cm AV Cusp Separation MM 1.8 cm DOPPLER MV Area PHT 3.9 cm??? Mitral E Point Velocity 56.7 cm/s Mitral A Point Velocity 85.5 cm/s Mitral E to A Ratio 0.7 MV Deceleration Time 195.9 ms MV E' Velocity 11.3 cm/s Mitral E to MV E' Ratio 5.0 FINDINGS Left Ventricle Mildly increased posterior wall thickness. Left ventricular ejection fraction is estimated at 55%. Right Ventricle Normal right ventricular size and function. Right Atrium Normal right atrial size. Left Atrium Normal left atrial size. Mitral Valve Structurally normal mitral valve. Aortic Valve Trileaflet aortic valve. Aortic valve sclerosis. Tricuspid Valve Structurally normal tricuspid valve. Pulmonic Valve Structurally normal pulmonic valve. Pericardium Small Pericardial Effusion. Aorta Normal size aortic root and proximal ascending aorta. CONCLUSIONS Normal left ventricular size wall motion systolic function Trace pericardial effusion Previewed by: Dr. Anatoliy Fuentes MD (Electronically Signed) Final Date: 29 March 2022 16:28
== END 2022-03-29 17:25 | disposition home or self-care (01) ==
LOC: EC 14:30 → 6NMEDSUR 19:12
PROVIDERS: ADMIT Family Medicine; ATTEND Family Medicine
DX: I20.9 Angina pectoris, unspecified (principal); R06.02 Shortness of breath; R12 Heartburn; I34.1 Nonrheumatic mitral (valve) prolapse; G40.909 Epilepsy, unspecified, not intractable, without status epilepticus; E07.9 Disorder of thyroid, unspecified; G89.29 Other chronic pain; M54.2 Cervicalgia; M25.519 Pain in unspecified shoulder; K46.9 Unspecified abdominal hernia without obstruction or gangrene; G47.419 Narcolepsy without cataplexy; Z90.49 Acquired absence of other specified parts of digestive tract; Z98.51 Tubal ligation status; Z98.890 Other specified postprocedural states; F41.9 Anxiety disorder, unspecified; F31.9 Bipolar disorder, unspecified; F17.200 Nicotine dependence, unspecified, uncomplicated; Z98.891 History of uterine scar from previous surgery; Z82.61 Family history of arthritis; Z87.442 Personal history of urinary calculi; Z83.79 Family history of other diseases of the digestive system; Z81.8 Family history of other mental and behavioral disorders; Z79.890 Hormone replacement therapy; Z79.899 Other long term (current) drug therapy; Z88.6 Allergy status to analgesic agent; Z88.8 Allergy status to other drugs, medicaments and biological substances; Z88.5 Allergy status to narcotic agent
CPT/HCPCS: 99285; 36415; 94760; 93005; 93306; 93351; 85379; 83880; 80061; 80053; 84443; 83735; 84484; 85025; 85610; 85730; 71046; G0378 ×2; S0109 ×2

== ENCOUNTER → 2022-07-18 | Outpatient (CLI) | payer OTHER ==
--- NOTE | 2022-07-18 16:31 | CT ---
EXAMINATION TYPE: CT pelvis w con DATE OF EXAM: 07/18/2022 COMPARISON: None INDICATION: RLQ pain. Suspected ovarian abnormality. DLP: 1072 mGycm, Automated exposure control for dose reduction was used. CONTRAST: 100cc mL of Isovue 300. Study performed with Oral Contrast TECHNIQUE: Axial images were obtained from above the diaphragm to the pubic rami in the axial plane a t 5 mm thick sections. Reconstructed images are reviewed on the computer in the coronal plane. FINDINGS: CT PELVIS: Loops of bowel within the abdomen and pelvis are normal. There are loops of bowel which are incom pletely distended or lack oral contrast limiting their evaluation. Fecal debris is within the colon. Appendix: Normal as visualized. Urinary bladder: Normal. Genitourinary structures: Uterus appears normal. Adnexa are normal. No suspicious ovarian cyst or mas s is evident. Osseous structures: No suspicious lytic or sclerotic lesions. IMPRESSIONS: 1. Unremarkable CT pelvis
== END | disposition home or self-care (01) ==
LOC: RADCTMAIN 14:06
PROVIDERS: ATTEND Family Medicine
DX: R10.31 Right lower quadrant pain (principal); M54.50 Low back pain, unspecified; Z98.890 Other specified postprocedural states; Z87.42 Personal history of other diseases of the female genital tract
CPT/HCPCS: 72193; Q9967

== ENCOUNTER → 2022-07-21 | Outpatient (CLI) | payer OTHER | END | disposition home or self-care (01) | LOC: LABWHC1 14:33 | PROVIDERS: ATTEND Psychiatry & Neurology Psychiatry | DX: F33.2 Major depressive disorder, recurrent severe without psychotic features (principal); I42.2 Other hypertrophic cardiomyopathy; I45.10 Unspecified right bundle-branch block; R94.31 Abnormal electrocardiogram [ECG] [EKG] | CPT/HCPCS: 36415; 93005 ==

== ENCOUNTER → 2022-09-29 | Outpatient (CLI) | payer OTHER | END | disposition home or self-care (01) | LOC: LABWHC1 11:00 | PROVIDERS: ATTEND Internal Medicine Sleep Medicine | DX: G47.419 Narcolepsy without cataplexy (principal) | CPT/HCPCS: 36415 ==

== ENCOUNTER 2022-11-19 16:40 | Emergency (ER) | payer OTHER ==
--- NOTE | 2022-11-19 18:33 | ED ---
General Adult HPI - General Chief complaint: Back Pain/Injury Stated complaint: back pain Time Seen by Provider: 11/19/22 18:32 Source: patient Limitations: no limitations - History of Present Illness Initial comments: Patient presents to the ED with her mother for evaluation. Patient states that she has had right lumbar back pain radiating to the right side of her abdomen for the past 3 weeks or so. Patient states that she has had similar pain in the past when she gets her periods, but she states that it never lasts for this long. Patient also admits to having urinary frequency and nausea. Patient states that her pain is worse with changes in position. Patient denies known trauma or injury, fever or chills, headache, focal numbness/weakness/neuro deficit, chest pain or pressure, dyspnea, dizziness, vomiting or diarrhea, constipation, bloody or melanotic stool, dysuria, hematuria, leg pain, incontinence or urinary retention, or any other symptoms or complaints. Patient declines pain medication at this time. - Related Data Home Medications Medication Instructions Recorded Confirmed Levothyroxine Sodium [Synthroid] 50 mcg PO DAILY 08/03/17 03/28/22 traZODone HCL 50 mg PO HS 10/11/20 03/28/22 Methadone HCl [Methadone Intensol] 85 mg PO DAILY 05/18/21 03/29/22 Dextroamphetamine/Amphetamine 10 mg PO DAILY 03/28/22 03/28/22 [Adderall] Previous Rx's Medication Instructions Recorded busPIRone HCl [Buspar] 5 mg PO BID #28 tab 03/29/22 Sennosides-Docusate Sodium 1 tab PO BID #20 tablet 11/19/22 [Senokot-S] Allergies Allergy/AdvReac Type Severity Reaction Status Date / Time carbamazepine [From Tegretol] Allergy Rash/Hives Verified 11/19/22 16:48 divalproex sodium Allergy Swelling Verified 11/19/22 16:48 [From Depakote] niacin Allergy Rash/Hives Verified 11/19/22 16:48 nifedipine [From Procardia] Allergy RASH & Verified 11/19/22 16:48 SWELLING diphenhydramine HCl AdvReac MUSCLE Verified 11/19/22 16:48 [From Benadryl] CRAMPS gabapentin [From Neurontin] AdvReac MAKES HER Verified 03/28/22 16:15 FEEL DRUNK pregabalin [From Lyrica] AdvReac MAKES HER Verified 11/19/22 16:48 FEEL DRUNK tramadol HCl [From Ultram] AdvReac SEIZURES Verified 11/19/22 16:48 seizure meds Allergy Rash/Hives Uncoded 11/19/22 16:48 VITAMIN B COMPLEX Allergy Rash/Hives Uncoded 11/19/22 16:48 Review of Systems ROS Statement: Those systems with pertinent positive or pertinent negative responses have been documented in the HPI. ROS Other: All systems not noted in ROS Statement are negative. Past Medical History Past Medical History: Mitral Valve Prolapse (MVP), Seizure Disorder, Thyroid Disorder Additional Past Medical History / Comment(s): HX KIDNEY STONES, ABD HERNIA, NARCOLEPSY, HX SEIZURE X 1 2012, endometriosis, History of Any Multi-Drug Resistant Organisms: None Reported Past Surgical History: Section, Cholecystectomy, Tubal Ligation Additional Past Surgical History / Comment(s): TL X 2, uterine ablation Past Anesthesia/Blood Transfusion Reactions: No Reported Reaction Past Psychological History: Anxiety, Depression Smoking Status: Current every day smoker Past Alcohol Use History: None Reported Past Drug Use History: Marijuana - Past Family History Father Additional Family Medical History / Comment(s): BACK PROBLEMS,DEPRESSION- COMMITTED SUICIDE @ AGE 53 Mother Family Medical History: Osteoarthritis (OA) Additional Family Medical History / Comment(s): COLITIS General Exam Limitations: no limitations General appearance: alert, in no apparent distress Eye exam: Present: normal appearance ENT exam: Present: mucous membranes moist Respiratory exam: Present: normal lung sounds bilaterally. Absent: respiratory distress, wheezes, rales, rhonchi, stridor Cardiovascular Exam: Present: normal rhythm, tachycardia, normal heart sounds, other (Normal radial pulses bilaterally) GI/Abdominal exam: Present: soft. Absent: distended, tenderness, guarding Extremities exam: Present: full ROM. Absent: tenderness, pedal edema Back exam: Present: normal inspection. Absent: tenderness, CVA tenderness (R), CVA tenderness (L) Neurological exam: Present: alert, oriented X3, other (No evidence of lower extremity neurological deficit or saddle anesthesia on exam). Absent: motor sensory deficit Skin exam: Present: warm, dry, intact, normal color Course Vital Signs 11/19/22 16:45 Temperature 100.1 F H Pulse Rate 112 H Respiratory 20 Rate Blood Pressure 108/72 O2 Sat by Pulse 99 Oximetry - Reevaluation(s) Reevaluation #1: 11/19/22 20:50 Patient denies development of any new symptoms while in the ED. Patient continues to decline pain medication. Patient and mother are aware the patient's test results, and they both feel comfortable with the patient being discharged home at this time. They were counseled about lumbar back pain and fecal stasis. They were clearly explained return and follow-up instructions. Patient was instructed to follow up closely with her primary care provider. Patient feels comfortable with this plan. Medical Decision Making - Medical Decision Making Was pt. sent in by a medical professional or institution (, PA, STUMPER FELLER, urgent care, hospital, or prison...) When possible be specific @ -No Did you speak to anyone other than the patient for history (EMS, parent, family, police, friend...)? What history was obtained from this source @ -No Did you review nursing and triage notes (agree or disagree)? Why? @ -I reviewed and agree with nursing and triage notes Were old charts reviewed (outside hosp., previous admission, EMS record, old EKG, old radiological studies, urgent care reports/EKG's, prison records)? Report findings @ -No old charts were reviewed Differential Diagnosis (chest pain, altered mental status, abdominal pain women, abdominal pain men, vaginal bleeding, weakness, fever, dyspnea, syncope, headache, dizziness, GI bleed, back pain, seizure, CVA, palpatations, mental health, musculoskeletal)? @ -Differential Back Pain: Strain, disc herniation, DJD, spinal stenosis, pancreatitis, peptic ulcer disease, pyelonephritis, kidney stone, muscle spasm, this is not meant to be an all-inclusive list. EKG interpreted by me (3pts min.). @ -None done X-rays interpreted by me (1pt min.). @ -None done CT interpreted by me (1pt min.). @ -Patient's CT abdomen/pelvis was reviewed myself and shows no evidence for obstructive uropathy or renal calculus. I agree with the radiologist's interpretation as above. U/S interpreted by me (1pt. min.). @ -None done What testing was considered but not performed or refused? (CT, X-rays, U/S, labs)? Why? @ -None What meds were considered but not given or refused? Why? @ -None Did you discuss the management of the patient with other professionals (professionals i.e. , PA, ST[employer]ER FE[employer]ER, lab, RT, psych nurse, hospital social worker, interactive multimedia designer, teacher, prison officer, shoe caser)? Give summary @ -No Was smoking cessation discussed for >3mins.? @ -No Was critical care preformed (if so, how long)? @ -No Were there social determinants of health that impacted care today? How? (Homelessness, low income, unemployed, alcoholism, drug addiction, transportation, low edu. Level, literacy, decrease access to med. care, long term, rehab)? @ -No Was there de-escalation of care discussed even if they declined (Discuss DNR or withdrawal of care, Hospice)? DNR status @ -No What co-morbidities impacted this encounter? (DM, HTN, Smoking, COPD, CAD, Cancer, CVA, ARF, Chemo, Hep., AIDS, mental health diagnosis, sleep apnea, morbid obesity)? @ -None Was patient admitted / discharged? Hospital course, mention meds given and route, prescriptions, significant lab abnormalities, going to OR and other pertinent info. @ -Patient's labs are fairly unremarkable. Patient's UA is negative for findings of UTI. Patient's CT is negative for findings of renal calculus or obstructive uropathy. Patient's appendix is within normal limits on CT. Patient's CT does demonstrate small bowel feces in the right pelvis. I have expected to the patient that this may potentially be the cause of her symptoms, although it may also be unrelated. Given these findings, the patient agrees with starting on a laxative/stool softener to see if it helps relieve her pain. Patient does not want any pain medication. I do not suspect an emergent medical condition. Will discharge patient home at this time. Patient feels comfortable with this plan. Undiagnosed new problem with uncertain prognosis? @ -No Drug Therapy requiring intensive monitoring for toxicity (Heparin, Nitro, Insulin, Cardizem)? @ -No Were any procedures done? @ -No Diagnosis/symptom? @ -Lumbar back pain Acute, or Chronic, or Acute on Chronic? @ -default Uncomplicated (without systemic symptoms) or Complicated (systemic symptoms)? @ -default Side effects of treatment? @ -No Exacerbation, Progression, or Severe Exacerbation? @ -No Poses a threat to life or bodily function? How? (Chest pain, USA, SD, pneumonia, PE, COPD, DKA, ARF, appy, cholecystitis, CVA, Diverticulitis, Homicidal, Suicidal, threat to staff... and all critical care pts) @ -No - Lab Data Result diagrams: 11/19/22 19:07 11/19/22 19:07 Lab Results 11/19/22 11/19/22 11/19/22 Range/Units 19:07 19:07 19:07 WBC 7.6 (3.8-10.6) k/uL RBC 4.13 (3.80-5.40) m/uL Hgb 12.3 (11.4-16.0) gm/dL Hct 38.2 (34.0-46.0) % MCV 92.6 (80.0-100.0) fL MCH 29.7 (25.0-35.0) pg MCHC 32.1 (31.0-37.0) g/dL RDW 13.2 (11.5-15.5) % Plt Count 183 (150-450) k/uL MPV 9.1 Neutrophils % 82 % Lymphocytes % 15 % Monocytes % 2 % Eosinophils % 0 % Basophils % 0 % Neutrophils # 6.3 (1.3-7.7) k/uL Lymphocytes # 1.2 (1.0-4.8) k/uL Monocytes # 0.1 (0-1.0) k/uL Eosinophils # 0.0 (0-0.7) k/uL Basophils # 0.0 (0-0.2) k/uL Sodium 137 (137-145) mmol/L Potassium 4.2 (3.5-5.1) mmol/L Chloride 103 (98-107) mmol/L Carbon Dioxide 25 (22-30) mmol/L Anion Gap 9 mmol/L BUN 13 (7-17) mg/dL Creatinine 0.76 (0.52-1.04) mg/dL Est GFR (CKD-EPI)AfAm >90 (>60 ml/min/1.73 sqM) Est GFR (CKD-EPI)NonAf >90 (>60 ml/min/1.73 sqM) Glucose 124 H (74-99) mg/dL Calcium 9.6 (8.4-10.2) mg/dL Total Bilirubin 0.2 (0.2-1.3) mg/dL AST 27 (14-36) U/L ALT 26 (4-34) U/L Alkaline Phosphatase 48 (38-126) U/L Total Protein 6.7 (6.3-8.2) g/dL Albumin 3.9 (3.5-5.0) g/dL Lipase 129 (23-300) U/L HCG, Qual Not Detected Urine Color Yellow Urine Appearance Cloudy H (Clear) Urine pH 5.5 (5.0-8.0) Ur Specific [place] 1.030 (1.001-1.035) Urine Protein Negative (Negative) Urine Glucose (UA) Negative (Negative) Urine Ketones Negative (Negative) Urine Blood Negative (Negative) Urine Nitrite Negative (Negative) Urine Bilirubin Negative (Negative) Urine Urobilinogen <2.0 (<2.0) mg/dL Ur Leukocyte Esterase Negative (Negative) Urine WBC 1 (0-5) /hpf Ur Squamous Epith Cells 2 (0-4) /hpf Urine Mucus Many H (None) /hpf - Radiology Data Noncontrast CT abdomen/pelvis: 1. No obstructive uropathy or renal calculus. The appendix is visualized and normal. 2. Small bowel feces in the distal small bowel particularly layering within the right pelvis. Correlate for fecal stasis. 3. Surgically absent gallbladder with appropriate dilation of the extrahepatic biliary system. Disposition Clinical Impression: Lumbar back pain Disposition: HOME SELF-CARE Condition: Stable Instructions (If sedation given, give patient instructions): Acute Low Back Pain (ED), Constipation (ED) Additional Instructions: Return to the ER immediately should you develop new or worsening pain, numbness or weakness, trouble controlling your bladder or bowels, a fever, vomiting, feeling dizzy or faint, shortness of breath, or new or worsening symptoms. Follow up closely with your primary care provider. Prescriptions: Sennosides-Docusate Sodium [Senokot-S] 1 tab PO BID #20 tablet Is patient prescribed a controlled substance at d/c from ED?: No Referrals: Keara Aguilar DO [Primary Care Provider] - 1-2 days Time of Disposition: 21:02
[2022-11-19 20:01] LABS: Basophils % (A) 0 %; Eosinophils % (A) 0 %; HCT 38.2 % (34.0-46.0); HGB 12.3 gm/dL (11.4-16.0); Lymphocytes # (A) 1.2 k/uL (1.0-4.8); Lymphocytes % (A) 15 %; MCH 29.7 pg (25.0-35.0); MCHC 32.1 g/dL (31.0-37.0); MCV 92.6 fL (80.0-100.0); Mean Platelet Volume 9.1; Monocytes # (A) 0.1 k/uL (0-1.0); Monocytes % (A) 2 %; Neutrophils # (A) 6.3 k/uL (1.3-7.7); Neutrophils % (A) 82 %; Platelet Count 183 k/uL (150-450); RBC 4.13 m/uL (3.80-5.40); RDW 13.2 % (11.5-15.5); WBC 7.6 k/uL (3.8-10.6)
--- NOTE | 2022-11-19 20:17 | CT ---
EXAMINATION TYPE: CT abdomen pelvis wo con CT DLP: 626.8 mGycm, Automated exposure control for dose reduction was used. DATE OF EXAM: 11/19/2022 7:34 PM COMPARISON: CT abdomen pelvis most recent from 07/18/2022 CLINICAL INDICATION:Female, 42 years old with history of Right back/flank pain; Rt side flank pain. TECHNIQUE: Axial CT of the abdomen and pelvis. Sagittal and coronal reformats were created on a [employer] workstation. Contrast used: (none if empty) Oral contrast used: without Oral Contrast (none if empty) FINDINGS: LOWER CHEST: Unremarkable ABDOMEN LIVER: Unremarkable GALLBLADDER AND BILE DUCTS: Gallbladder is surgically absent with mild intrahepatic and extra hepatic biliary dilatation likely physiologic and a postcholecystectomy change. No evidence of choledocholit hiasis. PANCREAS: Unremarkable. SPLEEN: Unremarkable. ADRENAL GLANDS: Unremarkable. KIDNEYS AND URETERS: No evidence of hydronephrosis or renal calculus. The ureters are unremarkable. PELVIS BLADDER: Unremarkable REPRODUCTIVE: Unremarkable. ABDOMEN & PELVIS STOMACH AND BOWEL: No evidence of bowel obstruction. Large amount stool throughout the colon. The toby endix is visualized and normal. Small of feces in the right pelvic small bowel.. PERITONEUM/RETROPERITONEUM: No evidence of pneumoperitoneum or free fluid. VASCULATURE: No evidence of aortic aneurysm. MUSCULOSKELETAL: No acute osseous abnormalities LYMPH NODES: No gross evidence for lymphadenopathy. SOFT TISSUE/ABDOMINAL WALL: Fat-containing umbilical hernia. IMPRESSION: 1. No obstructive uropathy or renal calculus. The appendix is visualized and normal. 2. Small bowel feces in the distal small bowel particularly layering within the right pelvis. Correl ate for fecal stasis. 3. Surgically absent bladder with appropriate dilatation of the extrahepatic biliary system
[2022-11-19 20:18] LABS: Appearance,Urine Cloudy (Clear); Bilirubin,Urine Negative (Negative); Blood,Urine Negative (Negative); Color,Urine Yellow; Glucose,Urine (UA) Negative (Negative); Ketones,Urine Negative (Negative); Leukocyte Esterase,Urine Negative (Negative); Mucus,Urine Many /hpf; Nitrite,Urine Negative (Negative); PH, Urine 5.5 (5.0-8.0); Protein,Urine Negative (Negative); Squamous Epithelial Cell,Urine 2 /hpf (0-4); Urobilinogen,Urine <2.0 mg/dL (<2.0); WBC,Urine 1 /hpf (0-5)
[2022-11-19 20:21] LABS: ALT 26 U/L (4-34); AST 27 U/L (14-36); African American GFR (CKD) >90 (>60 ml/min/1.73 sqM); Albumin 3.9 g/dL (3.5-5.0); Alkaline Phosphatase 48 U/L (38-126); Anion Gap 9 mmol/L; Blood Urea Nitrogen 13 mg/dL (7-17); Calcium 9.6 mg/dL (8.4-10.2); Carbon Dioxide 25 mmol/L (22-30); Chloride 103 mmol/L (98-107); Glucose 124 mg/dL (74-99); Lipase 129 U/L (23-300); Non-African American GFR(CKD) >90 (>60 ml/min/1.73 sqM); Potassium 4.2 mmol/L (3.5-5.1); Sodium 137 mmol/L (137-145); Total Bilirubin 0.2 mg/dL (0.2-1.3); Total Protein 6.7 g/dL (6.3-8.2)
[2022-11-19 20:24] LABS: HCG,Qualitative Serum Not Detected
[2022-11-19 21:20] VITALS: BP 106/69; PULSE 60; RESP 18; TEMP 98.7
== END 2022-11-19 21:17 | disposition home or self-care (01) ==
LOC: EC 16:40
DX: M54.50 Low back pain, unspecified (principal); G40.909 Epilepsy, unspecified, not intractable, without status epilepticus; E07.9 Disorder of thyroid, unspecified; F32.A Depression, unspecified; F41.9 Anxiety disorder, unspecified; F17.200 Nicotine dependence, unspecified, uncomplicated; F12.90 Cannabis use, unspecified, uncomplicated; Z79.890 Hormone replacement therapy; Z79.899 Other long term (current) drug therapy; Z90.49 Acquired absence of other specified parts of digestive tract; Z88.1 Allergy status to other antibiotic agents; Z88.3 Allergy status to other anti-infective agents; Z88.5 Allergy status to narcotic agent; Z88.8 Allergy status to other drugs, medicaments and biological substances; Z88.9 Allergy status to unspecified drugs, medicaments and biological substances; Z91.048 Other nonmedicinal substance allergy status
CPT/HCPCS: 36415; 74176; 80053; 81001; 83690; 84703; 85025; 99284

== ENCOUNTER 2023-05-07 18:59 | Outpatient (CLI) | payer OTHER ==
[2023-05-08 18:35] LABS: Urine Alcohol Negative (Negative); Urine Barbiturate Negative (Negative); Urine Cocaine Negative (Negative); Urine Methadone Positive (Negative); Urine Opiates Negative (Negative); Urine Phencyclidine Negative (Negative)
--- NOTE | 2023-05-10 11:57 | P.PCN ---
Description of Procedure: POLYSOMNOGRAPHY AND MSLT REPORT PROCEDURE(S)/DATE(S): Polysomnography 05/07/2023, MSLT 05/08/2023 CLINICAL: Patient has been seen in the sleep center for evaluation of obstructive sleep apnea-hypopnea syndrome. Please see my consultation. Sleep study has been done for evaluation of patient breathing during the sleep. PROCEDURE: The standard montage for clinical polysomnography included the electroencephalogram, the electrooculogram, the mentalis surface electromyography and Lead II cardiography. The respiratory battery consisted of measurements of nasal/buccal air flow, pressure transducer measurements from nose, thoracic and/or abdominal effort and intercostal surface electromyography. Video monitoring has been done to check for any parasomnia events. Nocturnal oxyhemoglobin saturations were obtained by finger oximetry. Step-meraz titration with positive airway pressure was utilized to control the respiratory events, if necessary. RESULTS: During the diagnostic sleep study sleep efficiency was normal at 89.9%. Latency to sleep onset was normal at 20.5 min. Sleep architecture showed stage NI was short 2.5%, Delta sleep was absent 0%, REM sleep was normal 24.6%, latency to REM sleep was borderline 64.0 minutes. Respiratory channel showed 21 obstructive apneas, 0 mixed apneas, 4 central apneas, 1 hypopneas with lowest oxygen level 89%. Total apnea hypopnea index was 3.4. Heart rate was in the range between 63 and 73, average 68. EMG showed 0 periodic limb movements per hour with 0 micro-arousals per hour. Multiple sleep latency test have been done on the following day and consisted from 5 naps. Mean sleep latency pathologically short 2.6 minutes. No sleep onset REM have been documented IMPRESSIONS: 1. No significant respiratory abnormalities given documented during the sleep study, normal oxygenation during sleep. 2. No significant periodic limb movements have been documented. 3. Multiple sleep latency test confirmed pathological sleepiness with mean sleep latency 2.6 minutes, no sleep onset REM periods have been documented. Differential diagnosis include idiopathic hypersomnia and narcolepsy. Please see other impressions from consultation PLAN: 1. I will see patient for follow-up visit to explain results of the test and r ecommendations. 2. No driving if feeling any sleepiness. Patient is aware about civil and criminal liability for unsafe driving. 3. Sleep hygiene with regular time in bed for at least 7-1/2 hours. 4. Daytime naps permitted. Thank you very much for allowing me to participate in the management of your patient. Sincerely, Layton Dejesus MD, PhD, FAASM. Diplomat of [place] [employer], Sleep Medicine Board by [place] [employer] Installment Dealer of [facility] [place]
== END 2023-05-08 17:15 | disposition home or self-care (01) ==
LOC: 3 N SLEEP 18:59
PROVIDERS: ATTEND Internal Medicine
DX: G47.419 Narcolepsy without cataplexy (principal); G47.10 Hypersomnia, unspecified; F17.200 Nicotine dependence, unspecified, uncomplicated; Z88.8 Allergy status to other drugs, medicaments and biological substances; Z91.018 Allergy to other foods; Z88.5 Allergy status to narcotic agent
CPT/HCPCS: 80306; 95805; 95810

== ENCOUNTER → 2023-05-17 | Outpatient (CLI) | payer OTHER ==
[2023-05-17 11:44] VITALS: BP 106/69; PULSE 86; RESP 16; TEMP 98.8
--- NOTE | 2023-05-17 12:22 | P.PN ---
Subjective DATE: 05/17/2023 FOLLOW UP VISIT. Patient returned to sleep center for follow-up visit discussed results of sleep study and following plan. I discussed results of sleep studies with patient and family in details. No significant respiratory abnormalities during sleep study, no periodic limb movements. Multiple sleep latency test confirmed pathological sleepiness, which is only 2.6 minutes. No sleep onset REM periods have been documented. Differential diagnosis include narcolepsy and idiopathic hypersomnia. Patient continued to feel sleepiness during the day. .[place] sleepiness scale is 16. MEDICATIONS:1. Methadone program 2. Trazodone at night During physical exam: GENERAL: A pleasant patient without any distress. VITAL SIGNS: Please see below. HEENT: PERRLA, EOMI. NECK: Supple. No JVD. LUNGS: Clear to percussion and to auscultation. Good air exchange. No wheezing or rhonchi. HEART: S1, S2 regular. ABDOMEN: Soft and nontender. EXTREMITIES: No clubbing or cyanosis. ROGUER: Awake, alert, and oriented x3. No focal deficit. Impressions: 1. No significant respiratory abnormalities during sleep 2. No periodic limb movements. 3. Pathological sleepiness confirmed by multiple sleep latency test. Mean sleep latency extremely short only 2.6 minutes, no sleep onset REM. 7 documented. Patient has positive history of cataplexy. Diagnosis narcolepsy type I. 4. History of anxiety. 5. History of hypothyroidism in the past. 6. Status post uterus ablation. 7. Status post cholecystectomy. 8. Patient is on methadone program secondary to overusing pain medications in the past. Plan: 1. Patient will start treatment with lowest doses of Adderall 5 mg twice a day. 2. Sleep hygiene with regular time in bed for at least 8 hours. 3. Daytime naps permitted 4. Precautions related to driving. No driving if feel any sleepiness. Patient is aware about civil and criminal liability for unsafe driving, promised to follow recommendations. 5. Follow up visit in 1-2 months or earlier if patient has any problems. Thank you very much for allowing me to participate in the management of your patient. Layton Dejesus MD, PhD, FAASM. Diplomat of [place] Board of Sleep Medicine, Sleep Medicine Board by [employer] [employer] Medicine Carbide Grinder of [facility] [place] Objective - Vital Signs Vital signs: Vital Signs Temp 98.8 F 05/17/23 11:25 Pulse 86 05/17/23 11:25 Resp 16 05/17/23 11:25 BP 106/69 05/17/23 11:25 Pulse Ox 96 05/17/23 11:25 FiO2 Intake & Output 05/16/23 05/17/23 05/17/23 18:59 06:59 18:59 Weight 79.152 kg
== END ==
LOC: 3 N SLEEP 11:02
PROVIDERS: ATTEND Internal Medicine
DX: G47.10 Hypersomnia, unspecified (principal); G47.21 Circadian rhythm sleep disorder, delayed sleep phase type; G47.419 Narcolepsy without cataplexy; F41.9 Anxiety disorder, unspecified; E03.9 Hypothyroidism, unspecified; F17.200 Nicotine dependence, unspecified, uncomplicated; Z98.890 Other specified postprocedural states; Z90.49 Acquired absence of other specified parts of digestive tract; Z88.8 Allergy status to other drugs, medicaments and biological substances; Z88.5 Allergy status to narcotic agent; Z91.018 Allergy to other foods
CPT/HCPCS: 99212

== ENCOUNTER → 2023-06-21 | Outpatient (CLI) | payer OTHER ==
[2023-06-21 15:12] VITALS: BP 108/76; PULSE 100; RESP 16; TEMP 99
--- NOTE | 2023-06-21 15:19 | P.PN ---
Subjective DATE: 06/21/2023 FOLLOW UP VISIT. Patient returned to sleep center for follow-up visit related to treatment of significant excessive daytime sleepiness secondary to narcolepsy. Presently patient is on treatment with Adderall 5 mg twice a day. With this medication patient feels better, but still feels sleepiness during the day. No side effects of medication. . [place] sleepiness scale is significantly increased to 17. MEDICATIONS:1. Adderall 5 mg twice a day 2. Trazodone 50 mg at night 3. Methadone 78 mg, dose decreasing down every 2 weeks. During physical exam: GENERAL: A pleasant patient without any distress. VITAL SIGNS: Please see below. HEENT: PERRLA, EOMI. NECK: Supple. No JVD. LUNGS: Clear to percussion and to auscultation. Good air exchange. No wheezing or rhonchi. HEART: S1, S2 regular. ABDOMEN: Soft and nontender. EXTREMITIES: No clubbing or cyanosis. DANCE ENTERTAINER: Awake, alert, and oriented x3. No focal deficit. Impressions: 1. Narcolepsy type I, confirmed by multiple sleep latency test with mean sleep latency 2.6 minutes. Positive history of cataplexy episodes. 2. History of anxiety. 3. The patient is on methadone program secondary to overusing pain medications in the past. 4. History of hypothyroidism in the past. 5. Status post uterus ablation. 6. Status post cholecystectomy. Plan: 1. Patient will continue treatment with Adderall, dose will be increased to 10 mg twice a day. 2. Sleep hygiene with regular time in bed for at least 8 hours. 3. Daytime naps permitted 4. Precautions related to driving. No driving if feel any sleepiness. Patient is aware about civil and criminal liability for unsafe driving, promised to follow recommendations. 5. Follow up visit in 4-6 months or earlier if patient has any problems. Thank you very much for allowing me to participate in the management of your patient. Layton Dejesus MD, PhD, FAASM. Diplomat of [place] Board of Sleep Medicine, Sleep Medicine Board by [employer] [employer] Internal Medicine Vp Revenue Cycle of [facility] [place] Objective - Vital Signs Vital signs: Vital Signs Temp 99 F 06/21/23 14:53 Pulse 100 06/21/23 14:53 Resp 16 06/21/23 14:53 BP 108/76 06/21/23 14:53 Pulse Ox 100 06/21/23 14:53 FiO2 Intake & Output 06/20/23 06/21/23 06/21/23 18:59 06:59 18:59 Weight 76.204 kg
== END | disposition home or self-care (01) ==
LOC: 3 N SLEEP 14:26
PROVIDERS: ATTEND Internal Medicine
DX: G47.411 Narcolepsy with cataplexy (principal); F41.9 Anxiety disorder, unspecified; F17.200 Nicotine dependence, unspecified, uncomplicated; Z87.42 Personal history of other diseases of the female genital tract; Z90.49 Acquired absence of other specified parts of digestive tract; Z88.8 Allergy status to other drugs, medicaments and biological substances; Z88.1 Allergy status to other antibiotic agents; Z88.5 Allergy status to narcotic agent; Z86.39 Personal history of other endocrine, nutritional and metabolic disease
CPT/HCPCS: 99212

== ENCOUNTER → 2023-06-21 | Outpatient (CLI) | payer OTHER | END | disposition home or self-care (01) | LOC: LABPRL 15:20 | PROVIDERS: ATTEND Internal Medicine | DX: G47.419 Narcolepsy without cataplexy (principal) | CPT/HCPCS: 80307 ==

== ENCOUNTER → 2023-08-01 | Outpatient (CLI) | payer OTHER ==
--- NOTE | 2023-08-01 15:05 | P.PROGSL ---
Subjective DATE: [] FOLLOW UP VISIT. Patient returned to sleep center for follow-up visit related to treatment of significant excessive daytime sleepiness secondary to narcolepsy. Patient is on treatment with Adderall 10 mg twice a day, but patient continued to feel tiredness and sleepiness during the day. No any side effects of medications. No jittering. .[place] sleepiness scale is[]. MEDICATIONS: Please see below During physical exam: GENERAL: A pleasant patient without any distress. VITAL SIGNS: Please see below. HEENT: PERRLA, EOMI. NECK: Supple. No JVD. LUNGS: Clear to percussion and to auscultation. Good air exchange. No wheezing or rhonchi. HEART: S1, S2 regular. ABDOMEN: Soft and nontender. EXTREMITIES: No clubbing or cyanosis. SENIOR MEDICAL WRITER: Awake, alert, and oriented x3. No focal deficit. Impressions: 1. Narcolepsy type I confirmed by MSLT, mean sleep latency was 2.6 minutes. Positive history of cataplexy episodes. 2. History of anxiety. 3. Patient is on methadone program or using pain medications in the past. 4. History of hypothyroidism in the past. 5. Status post uterus ablation. 6. Status post cholecystectomy. Plan: 1. Patient will continue treatment with Adderall, dose will be increased to 15 mg twice a day. 2. Sleep hygiene with regular time in bed for at least 8 hours. 3. Daytime naps permitted 4. Precautions related to driving. No driving if feel any sleepiness. Patient is aware about civil and criminal liability for unsafe driving, promised to follow recommendations. 5. Follow up visit in 2 months or earlier if patient has any problems. Thank you very much for allowing me to participate in the management of your patient. Layton Dejesus MD, PhD, FAASM. Diplomat of [place] Board of Sleep Medicine, Sleep Medicine Board by [place] Board of Internal Medicine Metal Furniture Panel Coverer of [facility] [place] Objective - Vital Signs Vital Signs: Vital Signs Temp 97.9 F 08/01/23 14: Pulse 83 08/01/23 14:29 Resp 18 08/01/23 14:29 BP 116/79 08/01/23 14:29 Pulse Ox 99 08/01/23 14:29 FiO2 Intake & Output 07/31/23 08/01/23 08/01/23 18:59 06:59 18:59 Weight 76.771 kg Home Medications: Home Medications Medication Instructions Recorded Confirmed Type traZODone HCL 50 mg PO HS 10/11/20 08/01/23 History Methadone HCl [Methadone Intensol] 74 mg PO DAILY 05/18/21 08/01/23 History Dextroamphetamine/Amphetamine 10 mg PO BID 06/21/23 08/01/23 History [Adderall]
[2023-08-01 15:21] VITALS: BP 116/79; PULSE 83; RESP 18; TEMP 97.9
== END ==
LOC: 3 N SLEEP 14:01
PROVIDERS: ATTEND Internal Medicine
DX: G47.419 Narcolepsy without cataplexy (principal); F41.9 Anxiety disorder, unspecified; F17.200 Nicotine dependence, unspecified, uncomplicated; Z98.890 Other specified postprocedural states; Z86.39 Personal history of other endocrine, nutritional and metabolic disease; Z90.49 Acquired absence of other specified parts of digestive tract; Z88.8 Allergy status to other drugs, medicaments and biological substances; Z88.1 Allergy status to other antibiotic agents; Z88.5 Allergy status to narcotic agent
CPT/HCPCS: 99212

== ENCOUNTER → 2023-09-27 | Outpatient (CLI) | payer OTHER ==
[2023-09-27 15:16] VITALS: BP 112/77; PULSE 100; RESP 16; TEMP 98.5
--- NOTE | 2023-09-27 15:27 | P.PROGSL ---
Subjective DATE: 09/27/2023 FOLLOW UP VISIT. Patient returned to sleep center for follow-up visit related to treatment of significant excessive daytime sleepiness secondary to narcolepsy. Presently patient is on treatment with Adderall 15 mg first thing in the morning and at 1 PM. With this regimen patient feels better but still has episodes when she fall ing asleep during the day. No jittering, no tachycardia or any other side effects. .[place] sleepiness scale is 16. MEDICATIONS: Please see below During physical exam: GENERAL: A pleasant patient without any distress. VITAL SIGNS: Please see below. HEENT: PERRLA, EOMI. NECK: Supple. No JVD. LUNGS: Clear to percussion and to auscultation. Good air exchange. No wheezing or rhonchi. HEART: S1, S2 regular. ABDOMEN: Soft and nontender. EXTREMITIES: No clubbing or cyanosis. TURF AND GROUNDS SUPERVISOR: Awake, alert, and oriented x3. No focal deficit. Impressions: 1. Narcolepsy, type I with positive history of cataplexy episodes. Mean sleep latency by MSLT 2.6 minutes 2. History of anxiety. 3. Patient is on methadone program for overusing pain medication in the past. 4. History of hypothyroidism in the past. 5. Status post uterus ablation. 6. Status post cholecystectomy. Plan: 1. Patient will continue treatment with Adderall, dose will be increased to 20 mg twice a day. 2. Sleep hygiene with regular time in bed for at least 8 hours. 3. Daytime naps permitted 4. Precautions related to driving. No driving if feel any sleepiness. Patient is aware about civil and criminal liability for unsafe driving, promised to follow recommendations. 5. Follow up visit in 4-6 months or earlier if patient has any problems. Thank you very much for allowing me to participate in the management of your patient. Layton Dejesus MD, PhD, FAASM. Diplomat of [place] Board of Sleep Medicine, Sleep Medicine Board by [place] of Internal Medicine Truck Driver Rubbish Collector of [facility] [place] Raffy Aguilar MD Objective - Vital Signs Vital Signs: Vital Signs Temp 98.5 F 09/27/23 15:15 Pulse 100 09/27/23 15:15 Resp 16 09/27/23 15:15 BP 112/77 09/27/23 15:15 Pulse Ox 96 09/27/23 15:15 FiO2 Intake & Output 09/26/23 09/27/23 09/27/23 18:59 06:59 18:59 Weight 72.575 kg Home Medications: Home Medications Medication Instructions Recorded Confirmed Type traZODone HCL 50 mg PO HS 10/11/20 09/27/23 History Methadone HCl [Methadone Intensol] 74 mg PO DAILY 05/18/21 09/27/23 History Dextroamphetamine/Amphetamine 10 mg PO BID 06/21/23 09/27/23 History [Adderall]
== END ==
LOC: 3 N SLEEP 14:40
PROVIDERS: ATTEND Internal Medicine
DX: G47.419 Narcolepsy without cataplexy (principal); F41.9 Anxiety disorder, unspecified; F17.200 Nicotine dependence, unspecified, uncomplicated; Z86.39 Personal history of other endocrine, nutritional and metabolic disease; Z98.890 Other specified postprocedural states; Z90.49 Acquired absence of other specified parts of digestive tract; Z88.8 Allergy status to other drugs, medicaments and biological substances; Z88.5 Allergy status to narcotic agent
CPT/HCPCS: 99212

== ENCOUNTER → 2024-01-02 | Outpatient (CLI) | payer OTHER ==
[2024-01-02 14:59] VITALS: BP 105/72; PULSE 85; RESP 16; TEMP 98.5
--- NOTE | 2024-01-02 15:17 | P.PROGSL ---
Subjective DATE: 01/02/2024 FOLLOW UP VISIT. Patient returned to sleep center for follow-up visit related to treatment of significant excessive daytime sleepiness secondary to narcolepsy. Patient is on treatment with Adderall 20 mg in the morning and second dose around 2 PM. With this regimen patient controlled her alertness until around 6 -7 PM and then she feels more sleepiness. [place] sleepiness scale is an extremely high range of 24, because patient did not take her medications today. MEDICATIONS:1. Adderall 20 mg twice a day 2. Trazodone 50 mg at night 3. Abilify if 4. Methadone 80 mg once a day, patient is on methadone program During physical exam: GENERAL: A pleasant patient without any distress. VITAL SIGNS: Please see below, weight 162.0 pounds, BMI 23.9. HEENT: [place], EOMI. NECK: Supple. No JVD. LUNGS: Clear to percussion and to auscultation. Good air exchange. No wheezing or rhonchi. HEART: S1, S2 regular. ABDOMEN: Soft and nontender. EXTREMITIES: No clubbing or cyanosis. VOICE SYSTEMS ENGINEER: Awake, alert, and oriented x3. No focal deficit. Impressions: 1. Narcolepsy type I with positive history of cataplexy episodes, mean sleep latency 2.6 minutes by results of MSLT. 2. Patient is on methadone program for overusing pain medications in the past. 3. History of anxiety. 4. History of hypothyroidism in the past. 5. Status post uterus ablation. 6. Status post cholecystectomy. Plan: 1. Patient will continue treatment with Adderall 20 mg twice a day 2. Sleep hygiene with regular time in bed for at least 8 hours. 3. Daytime naps permitted 4. Precautions related to driving. No driving if feel any sleepiness. Patient is aware about civil and criminal liability for unsafe driving, promised to follow recommendations. 5. Follow up visit in 4-6 months or earlier if patient has any problems. Thank you very much for allowing me to participate in the management of your patient. Layton Dejesus MD, PhD, FAASM. Diplomat of [place] Board of Sleep Medicine, Sleep Medicine Board by [place] [employer] of Internal Medicine Farmworker Field Crop of [facility] [place] Objective - Vital Signs Vital Signs: Vital Signs Temp 98.5 F 01/02/24 14:57 Pulse 85 01/02/24 14:57 Resp 16 01/02/24 14:57 BP 105/72 01/02/24 14:57 Pulse Ox 98 01/02/24 14:57 FiO2 Intake & Output 01/01/24 01/02/24 01/02/24 18:59 06:59 18:59 Weight 73.482 kg Home Medications: Home Medications Medication Instructions Recorded Confirmed Type traZODone HCL 50 mg PO HS 10/11/20 01/02/24 History Methadone HCl [Methadone Intensol] 80 mg PO DAILY 05/18/21 01/02/24 History Dextroamphetamine/Amphetamine 20 mg PO BID 06/21/23 01/02/24 History [Adderall]
== END ==
LOC: 3 N SLEEP 14:16
PROVIDERS: ATTEND Internal Medicine
CPT/HCPCS: 99212

== ENCOUNTER 2024-07-12 21:26 | Inpatient (IN) | payer MEDICAID, OTHER ==
--- NOTE | 2024-07-12 23:09 | ED ---
Psych HPI - General Chief Complaint: Psychiatric Symptoms Stated Complaint: Mental health Time Seen by Provider: 07/12/24 22:19 Source: patient Mode of arrival: ambulatory - History of Present Illness Initial Comments: This patient is a 43-year-old woman who is here to have evaluation for altered mental status. The patient states that she is not exactly sure what happened earlier but she was brought here by her ex-. The patient's ex- is present and states that the patient had been driving with her son, when she reportedly became disoriented and confused. They stop the vehicle and the patient's came to the scene and after talking with the patient states that she wanted to come here to have evaluation. It was reported that the patient had taken an OxyContin that she had taken from someone she has not prescribed that medication. The patient reportedly on methadone for opioid addiction. When I interviewed the patient she does not have any physical complaints, no pain, no dyspnea, no nausea or vomiting. She is disoriented to date. MD Complaint: altered mental status -: hour(s) Associated Psychiatric Symptoms: none Quality: resolved prior to arrival (Partially resolved) Improves With: none Worsens With: none Context: recent drug abuse Associated Symptoms: confusion - Related Data Home Medications Medication Instructions Recorded Confirmed Methadone HCl [Methadone Intensol] 92 mg PO DAILY 05/18/21 07/14/24 Previous Rx's Medication Instructions Recorded Methadone [Dolophine] 90 mg PO DAILY tab 07/16/24 chlorproMAZINE [Thorazine] 25 mg PO HS 30 Days #30 tab 07/16/24 Allergies Allergy/AdvReac Type Severity Reaction Status Date / Time carbamazepine [From Tegretol] Allergy Rash/Hives Verified 07/12/24 22:16 divalproex sodium Allergy Swelling Verified 07/12/24 22:16 [From Depakote] niacin Allergy Rash/Hives Verified 07/12/24 22:16 nifedipine [From Procardia] Allergy RASH & Verified 07/12/24 22:16 SWELLING diphenhydramine HCl AdvReac MUSCLE Verified 07/12/24 22:16 [From Benadryl] CRAMPS gabapentin [From Neurontin] AdvReac MAKES HER Verified 07/12/24 22:16 FEEL DRUNK pregabalin [From Lyrica] AdvReac MAKES HER Verified 07/12/24 22:16 FEEL DRUNK tramadol HCl [From Ultram] AdvReac SEIZURES Verified 07/12/24 22:16 seizure meds Allergy Rash/Hives Uncoded 07/12/24 22:16 VITAMIN B COMPLEX Allergy Rash/Hives Uncoded 07/12/24 22:16 Review of Systems ROS Statement: Those systems with pertinent positive or pertinent negative responses have been documented in the HPI. ROS Other: All systems not noted in ROS Statement are negative. Constitutional: Denies: fever Eyes: Denies: vision change Respiratory: Denies: cough, dyspnea Cardiovascular: Denies: chest pain, syncope Gastrointestinal: Denies: abdominal pain, vomiting, diarrhea Musculoskeletal: Denies: back pain Neurological: Reports: confusion. Denies: headache, weakness Psychiatric: Denies: depression, suicidal thoughts Past Medical History Past Medical History: Mitral Valve Prolapse (MVP), Seizure Disorder, Thyroid Disorder Additional Past Medical History / Comment(s): HX KIDNEY STONES, ABD HERNIA, NARCOLEPSY, HX SEIZURE X 1 2012, endometriosis, History of Any Multi-Drug Resistant Organisms: None Reported Past Surgical History: Section, Cholecystectomy, Tubal Ligation Additional Past Surgical History / Comment(s): TL X 2, uterine ablation Past Anesthesia/Blood Transfusion Reactions: No Reported Reaction Past Psychological History: Anxiety, Depression Smoking Status: Former smoker, Vaper Past Alcohol Use History: None Reported Past Drug Use History: Marijuana - Past Family History Father Additional Family Medical History / Comment(s): BACK PROBLEMS,DEPRESSION- COMMITTED SUICIDE @ AGE 53 Mother Family Medical History: Osteoarthritis (OA) Additional Family Medical History / Comment(s): COLITIS General Exam Limitations: no limitations, altered mental status General appearance: alert, in no apparent distress Head exam: Present: atraumatic, normocephalic Eye exam: Present: normal appearance. Absent: scleral icterus, conjunctival injection Neck exam: Present: normal inspection Respiratory exam: Present: normal lung sounds bilaterally. Absent: respiratory distress, wheezes, rales, rhonchi, stridor, accessory muscle use Cardiovascular Exam: Present: regular rate, normal rhythm, normal heart sounds. Absent: systolic murmur, diastolic murmur, rubs, gallop GI/Abdominal exam: Present: soft. Absent: distended, tenderness, guarding, rebound, rigid Extremities exam: Present: normal inspection, normal capillary refill. Absent: pedal edema, calf tenderness Back exam: Present: normal inspection. Absent: CVA tenderness (R), CVA tenderness (L) Neurological exam: Present: alert. Absent: oriented X3 (Patient is alert to person, recognizes she is in the hospital, disoriented to date), motor sensory deficit Skin exam: Present: warm, dry, intact, normal color. Absent: rash Course Vital Signs 07/12/24 07/13/24 22:12 03:31 Temperature 99.1 F 97.8 F Pulse Rate 77 Pulse Rate [ 65 Right] Respiratory 18 16 Rate Blood Pressure 132/87 Blood Pressure 130/83 [Right Arm] O2 Sat by Pulse 98 99 Oximetry Medical Decision Making - Medical Decision Making The patient had CT scan of the brain that I interpreted as negative for acute bony injury, negative for acute intracranial hemorrhage, mass effect or midline shift Was pt. sent in by a medical professional or institution (EVONNE Canas, UI APPLICATION DEVELOPER, urgent care, hospital, or group home...) When possible be specific @ -[No] Did you speak to anyone other than the patient for history (EMS, parent, family, police, friend...)? What history was obtained from this source @ -[No] Did you review nursing and triage notes (agree or disagree)? Why? @ -[I reviewed and agree with nursing and triage notes] Were old charts reviewed (outside hosp., previous admission, EMS record, old EKG, old radiological studies, urgent care reports/EKG's, group home records)? Report findings @ -[No old charts were reviewed] Differential Diagnosis (chest pain, altered mental status, abdominal pain women, abdominal pain men, vaginal bleeding, weakness, fever, dyspnea, syncope, headache, dizziness, GI bleed, back pain, seizure, CVA, palpatations, mental health, musculoskeletal)? @ -[Differential Altered Mental Status: Hypoglycemia, DKA, hypercapnia, ETOH, overdose, CO poisoning, trauma, myxedema coma, HTN encephalopathy, infection, encephalitis, psychosis, intercranial hemorrhage, hepatic encephalopathy, meningitis, CVA, this is not meant to be an all-inclusive list EKG interpreted by me (3pts min.). @ -[As above] X-rays interpreted by me (1pt min.). @ -[None done] CT interpreted by me (1pt min.). @ -[I interpreted as above U/S interpreted by me (1pt. min.). @ -[None done] What testing was considered but not performed or refused? (CT, X-rays, U/S, labs)? Why? @ -[None] What meds were considered but not given or refused? Why? @ -[None] Did you discuss the management of the patient with other professionals (professionals i.e. Dr., PA, UI APPLICATION DEVELOPER, lab, RT, psych nurse, social work lecturer, shift foreman, teacher, lead security officer, case management rn)? Give summary @ -[No] Was smoking cessation discussed for >3mins.? @ -[No] Was critical care preformed (if so, how long)? @ -[No] Were there social determinants of health that impacted care today? How? (Ho melessness, low income, unemployed, alcoholism, drug addiction, transportation, low edu. Level, literacy, decrease access to med. care, senior care, rehab)? @ -[No] Was there de-escalation of care discussed even if they declined (Discuss DNR or withdrawal of care, Hospice)? DNR status @ -[No] What co-morbidities impacted this encounter? (DM, HTN, Smoking, COPD, CAD, Cancer, CVA, ARF, Chemo, Hep., AIDS, mental health diagnosis, sleep apnea, morbid obesity)? @ -[None] Was patient admitted / discharged? Hospital course, mention meds given and route, prescriptions, significant lab abnormalities, going to OR and other pertinent info. @ -[Patient is 43-year-old woman who is here to have evaluation after episode of altered mental status. At this point suspect psychiatric origin of symptoms but the patient will be admitted medically overnight with psychiatry consult. Undiagnosed new problem with uncertain prognosis? @ -[No] Drug Therapy requiring intensive monitoring for toxicity (Heparin, Nitro, Insulin, Cardizem)? @ -[No] Were any procedures done? @ -[No] Diagnosis/symptom? @ -[Acute altered mental status Acute, or Chronic, or Acute on Chronic? @ -[default] Uncomplicated (without systemic symptoms) or Complicated (systemic symptoms)? @ -[default] Side effects of treatment? @ -[No] Exacerbation, Progression, or Severe Exacerbation? @ -[No] Poses a threat to life or bodily function? How? (Chest pain, USA, NH, pneumonia, PE, COPD, DKA, ARF, appy, cholecystitis, CVA, Diverticulitis, Homicidal, Suicidal, threat to staff... and all critical care pts) @ -[No] All treatments are based on ideal body weight as in ED triage - Lab Data Result diagrams: 07/12/24 23:00 07/12/24 23:00 Lab Results 07/12/24 07/12/24 07/12/24 Range/Units 22:59 22:59 22:59 WBC (4.50-10.00) 10*3/uL RBC (4.10-5.20) 10*6/uL Hgb (12.0-15.0) g/dL Hct (37.2-46.3) % MCV (80.0-97.0) fL MCH (27.0-32.0) pg MCHC (32.0-37.0) g/dL Plt Count (140-440) 10*3/uL MPV (9.5-12.2) fL Immature Gran % (Auto) % Neutrophils % % Lymphocytes % % Monocytes % % Eosinophils % % Basophils % % Immature Gran # (0.00-0.04) 10*3/uL Neutrophils # (1.80-7.70) 10*3/uL Lymphocytes # (0.90-5.00) 10*3/uL Monocytes # (0.20-1.00) 10*3/uL Eosinophils # (0.04-0.35) 10*3/uL Basophils # (0.00-0.10) 10*3/uL Sodium (137-145) mmol/L Potassium (3.5-5.1) mmol/L Chloride (98-107) mmol/L Carbon Dioxide (22-30) mmol/L Anion Gap mmol/L BUN (7-17) mg/dL Creatinine (0.52-1.04) mg/dL Est GFR (CKD-EPI)AfAm (>60 ml/min/1.73 sqM) Est GFR (CKD-EPI)NonAf (>60 ml/min/1.73 sqM) Glucose (74-99) mg/dL Estimated Ave Glu mg/dL mg/dL Hemoglobin A1c (<=6.0) % Calcium (8.4-10.2) mg/dL Total Bilirubin (0.2-1.3) mg/dL AST (14-36) U/L ALT (4-34) U/L Alkaline Phosphatase (38-126) U/L Total Protein (6.3-8.2) g/dL Albumin (3.5-5.0) g/dL TSH (0.465-4.680) mIU/L Urine Color Colorless Urine Appearance Clear (Clear) Urine pH 6.0 (5.0-8.0) Ur Specific [place] 1.002 (1.001-1.035) Urine Protein Negative (Negative) Urine Glucose (UA) Negative (Negative) Urine Ketones Negative (Negative) Urine Blood Negative (Negative) Urine Nitrite Negative (Negative) Urine Bilirubin Negative (Negative) Urine Urobilinogen <2.0 (<2.0) mg/dL Ur Leukocyte Esterase Negative (Negative) Urine HCG, Qual Not Detected (Not Detectd) Urine Opiates Screen Not Detected (NotDetected) Ur Oxycodone Screen Not Detected (NotDetected) Urine Methadone Screen Detected H (NotDetected) Ur Barbiturates Screen Not Detected (NotDetected) U Tricyclic Antidepress Not Detected (NotDetected) Ur Phencyclidine Scrn Not Detected (NotDetected) Ur Amphetamines Screen Not Detected (NotDetected) U Methamphetamines Scrn Not Detected (NotDetected) U Benzodiazepines Scrn Not Detected (NotDetected) Urine Cocaine Screen Not Detected (NotDetected) U Marijuana (THC) Screen Detected H (NotDetected) Influenza Type A (PCR) (Not Detectd) Influenza Type B (PCR) (Not Detectd) RSV (PCR) (Not Detectd) SARS-CoV-2 (PCR) (Not Detectd) 07/12/24 07/12/24 07/12/24 Range/Units 23:00 23:00 23:00 WBC 8.28 (4.50-10.00) 10*3/uL RBC 4.16 (4.10-5.20) 10*6/uL Hgb 12.5 (12.0-15.0) g/dL Hct 37.0 L (37.2-46.3) % MCV 88.9 (80.0-97.0) fL MCH 30.0 (27.0-32.0) pg MCHC 33.8 (32.0-37.0) g/dL Plt Count 228 (140-440) 10*3/uL MPV 10.6 (9.5-12.2) fL Immature Gran % (Auto) 0.2 % Neutrophils % 64.7 % Lymphocytes % 28.4 % Monocytes % 5.8 % Eosinophils % 0.5 % Basophils % 0.4 % Immature Gran # 0.02 (0.00-0.04) 10*3/uL Neutrophils # 5.36 (1.80-7.70) 10*3/uL Lymphocytes # 2.35 (0.90-5.00) 10*3/uL Monocytes # 0.48 (0.20-1.00) 10*3/uL Eosinophils # 0.04 (0.04-0.35) 10*3/uL Basophils # 0.03 (0.00-0.10) 10*3/uL Sodium 138 (137-145) mmol/L Potassium 3.2 L (3.5-5.1) mmol/L Chloride 100 (98-107) mmol/L Carbon Dioxide 29 (22-30) mmol/L Anion Gap 9 mmol/L BUN 4 L (7-17) mg/dL Creatinine 0.66 (0.52-1.04) mg/dL Est GFR (CKD-EPI)AfAm >90 (>60 ml/min/1.73 sqM) Est GFR (CKD-EPI)NonAf >90 (>60 ml/min/1.73 sqM) Glucose 82 (74-99) mg/dL Estimated Ave Glu mg/dL mg/dL Hemoglobin A1c (<=6.0) % Calcium 10.1 (8.4-10.2) mg/dL Total Bilirubin 0.5 (0.2-1.3) mg/dL AST 26 (14-36) U/L ALT 21 (4-34) U/L Alkaline Phosphatase 49 (38-126) U/L Total Protein 7.2 (6.3-8.2) g/dL Albumin 4.4 (3.5-5.0) g/dL TSH 2.600 (0.465-4.680) mIU/L Urine Color Urine Appearance (Clear) Urine pH (5.0-8.0) Ur Specific [place] (1.001-1.035) Urine Protein (Negative) Urine Glucose (UA) (Negative) Urine Ketones (Negative) Urine Blood (Negative) Urine Nitrite (Negative) Urine Bilirubin (Negative) Urine Urobilinogen (<2.0) mg/dL Ur Leukocyte Esterase (Negative) Urine HCG, Qual (Not Detectd) Urine Opiates Screen (NotDetected) Ur Oxycodone Screen (NotDetected) Urine Methadone Screen (NotDetected) Ur Barbiturates Screen (NotDetected) U Tricyclic Antidepress (NotDetected) Ur Phencyclidine Scrn (NotDetected) Ur Amphetamines Screen (NotDetected) U Methamphetamines Scrn (NotDetected) U Benzodiazepines Scrn (NotDetected) Urine Cocaine Screen (NotDetected) U Marijuana (THC) Screen (NotDetected) Influenza Type A (PCR) Not Detected (Not Detectd) Influenza Type B (PCR) Not Detected (Not Detectd) RSV (PCR) Not Detected (Not Detectd) SARS-CoV-2 (PCR) Not Detected (Not Detectd) 07/12/24 Range/Units 23:00 WBC (4.50-10.00) 10*3/uL RBC (4.10-5.20) 10*6/uL Hgb (12.0-15.0) g/dL Hct (37.2-46.3) % MCV (80.0-97.0) fL MCH (27.0-32.0) pg MCHC (32.0-37.0) g/dL Plt Count (140-440) 10*3/uL MPV (9.5-12.2) fL Immature Gran % (Auto) % Neutrophils % % Lymphocytes % % Monocytes % % Eosinophils % % Basophils % % Immature Gran # (0.00-0.04) 10*3/uL Neutrophils # (1.80-7.70) 10*3/uL Lymphocytes # (0.90-5.00) 10*3/uL Monocytes # (0.20-1.00) 10*3/uL Eosinophils # (0.04-0.35) 10*3/uL Basophils # (0.00-0.10) 10*3/uL Sodium (137-145) mmol/L Potassium (3.5-5.1) mmol/L Chloride (98-107) mmol/L Carbon Dioxide (22-30) mmol/L Anion Gap mmol/L BUN (7-17) mg/dL Creatinine (0.52-1.04) mg/dL Est GFR (CKD-EPI)AfAm (>60 ml/min/1.73 sqM) Est GFR (CKD-EPI)NonAf (>60 ml/min/1.73 sqM) Glucose (74-99) mg/dL Estimated Ave Glu mg/dL 97 mg/dL Hemoglobin A1c 5.0 (<=6.0) % Calcium (8.4-10.2) mg/dL Total Bilirubin (0.2-1.3) mg/dL AST (14-36) U/L ALT (4-34) U/L Alkaline Phosphatase (38-126) U/L Total Protein (6.3-8.2) g/dL Albumin (3.5-5.0) g/dL TSH (0.465-4.680) mIU/L Urine Color Urine Appearance (Clear) Urine pH (5.0-8.0) Ur Specific [place] (1.001-1.035) Urine Protein (Negative) Urine Glucose (UA) (Negative) Urine Ketones (Negative) Urine Blood (Negative) Urine Nitrite (Negative) Urine Bilirubin (Negative) Urine Urobilinogen (<2.0) mg/dL Ur Leukocyte Esterase (Negative) Urine HCG, Qual (Not Detectd) Urine Opiates Screen (NotDetected) Ur Oxycodone Screen (NotDetected) Urine Methadone Screen (NotDetected) Ur Barbiturates Screen (NotDetected) U Tricyclic Antidepress (NotDetected) Ur Phencyclidine Scrn (NotDetected) Ur Amphetamines Screen (NotDetected) U Methamphetamines Scrn (NotDetected) U Benzodiazepines Scrn (NotDetected) Urine Cocaine Screen (NotDetected) U Marijuana (THC) Screen (NotDetected) Influenza Type A (PCR) (Not Detectd) Influenza Type B (PCR) (Not Detectd) RSV (PCR) (Not Detectd) SARS-CoV-2 (PCR) (Not Detectd) Disposition Clinical Impression: Altered mental status, Mood disorder Disposition: TRANSFER TO PSYCH HOSP/UNIT Condition: Stable Is patient prescribed a controlled substance at d/c from ED?: No
[2024-07-12 23:18] LABS: Basophils # (A) 0.03 10*3/uL (0.00-0.10); Basophils % (A) 0.4 %; Eosinophils # (A) 0.04 10*3/uL (0.04-0.35); Eosinophils % (A) 0.5 %; HGB 12.5 g/dL (12.0-15.0); Lymphocytes # (A) 2.35 10*3/uL (0.90-5.00); Lymphocytes % (A) 28.4 %; MCHC 33.8 g/dL (32.0-37.0); MCV 88.9 fL (80.0-97.0); Mean Platelet Volume 10.6 fL (9.5-12.2); Monocytes # (A) 0.48 10*3/uL (0.20-1.00); Monocytes % (A) 5.8 %; Neutrophils # (A) 5.36 10*3/uL (1.80-7.70); Neutrophils % (A) 64.7 %; Platelet Count 228 10*3/uL (140-440); RBC 4.16 10*6/uL (4.10-5.20); RDW 13.1 % (11.5-14.5); WBC 8.28 10*3/uL (4.50-10.00)
[2024-07-12 23:27] LABS: ALT 21 U/L (4-34); AST 26 U/L (14-36); African American GFR (CKD) >90 (>60 ml/min/1.73 sqM); Albumin 4.4 g/dL (3.5-5.0); Alkaline Phosphatase 49 U/L (38-126); Anion Gap 9 mmol/L; Blood Urea Nitrogen 4 mg/dL (7-17); Calcium 10.1 mg/dL (8.4-10.2); Carbon Dioxide 29 mmol/L (22-30); Chloride 100 mmol/L (98-107); Glucose 82 mg/dL (74-99); Non-African American GFR(CKD) >90 (>60 ml/min/1.73 sqM); Potassium 3.2 mmol/L (3.5-5.1); Sodium 138 mmol/L (137-145); Total Bilirubin 0.5 mg/dL (0.2-1.3); Total Protein 7.2 g/dL (6.3-8.2)
[2024-07-12 23:54] LABS: Amphetamine Screen,Urine Not Detected (NotDetected); Barbiturate Screen,Urine Not Detected (NotDetected); Benzodiazepines Screen,Urine Not Detected (NotDetected); Cocaine Screen,Urine Not Detected (NotDetected); Methadone Screen, Urine Detected (NotDetected); Opiate Screen,Urine Not Detected (NotDetected); Oxycodone Screen, Urine Not Detected (NotDetected); Phencyclidine Screen,Urine Not Detected (NotDetected); Tricyclic Antidepressant,Urine Not Detected (NotDetected); Urn Cannabinoid Scrn Detected (NotDetected)
[2024-07-12 23:56] LABS: Influenza A Not Detected (Not Detectd); Influenza B Not Detected (Not Detectd); RSV Not Detected (Not Detectd)
[2024-07-13] MEDS: POTASSIUM CHLORIDE ER 20 MEQ TAB.ER PO STA (00:04)
--- NOTE | 2024-07-13 02:42 | CT ---
EXAM: CT Head Without Intravenous Contrast CLINICAL HISTORY: CT Reason: head injury TECHNIQUE: Axial computed tomography images of the head/brain without intravenous contrast. CTDI is 49.1 mGy and DLP is 1166 mGy-cm. This CT exam was performed using one or more of the following dose reduction techniques: automated exposure control, adjustment of the mA and/or kV according to patient size, and/or use of iterative reconstruction technique. COMPARISON: May 18, 2021 FINDINGS: Brain: Unremarkable. No hemorrhage. No significant white matter disease. No edema. Ventricles: Unremarkable. No ventriculomegaly. Bones/joints: Unremarkable. No acute fracture. Soft tissues: Unremarkable. Sinuses: Unremarkable as visualized. No acute sinusitis. Mastoid air cells: Unremarkable as visualized. No mastoid effusion. IMPRESSION: Normal head/brain CT.
[2024-07-13] MEDS ORDERED: MAGNESIUM HYDROXIDE 2,400 MG/30 ML CUP PO PRN (03:06)
[2024-07-13] MEDS ORDERED: MAG HYDROX/AL HYDROX/SIMETH 355 ML BOTTLE PO PRN (03:06)
[2024-07-13] MEDS ORDERED: HALOPERIDOL LACTATE 5 MG/ML 1 ML VIAL IM PRN (03:06)
[2024-07-13] MEDS ORDERED: ACETAMINOPHEN TAB 325 MG TAB PO PRN (03:06)
[2024-07-13] MEDS ORDERED: LORazepam 2 MG/ML INJ IM PRN (03:06)
[2024-07-13] MEDS: LORazepam 1 MG TAB PO PRN (04:11)
[2024-07-13] MEDS: haloperidoL 5 MG TAB PO PRN (04:11)
[2024-07-13 06:16] LABS: Appearance,Urine Clear (Clear); Bilirubin,Urine Negative (Negative); Blood,Urine Negative (Negative); Color,Urine Colorless; Glucose,Urine (UA) Negative (Negative); Ketones,Urine Negative (Negative); Leukocyte Esterase,Urine Negative (Negative); Nitrite,Urine Negative (Negative); Protein,Urine Negative (Negative); Specific Gravity,Urine 1.002 (1.001-1.035); Urobilinogen,Urine <2.0 mg/dL (<2.0)
[2024-07-13] MEDS: NICOTINE 14MG/24HR PATCH TRANSDERM SCH (08:57)
--- NOTE | 2024-07-13 12:50 | P.HP ---
Psychiatric H&P - . H&P Date: 07/13/24 History & Physical: Allergies Allergy/AdvReac Type Severity Reaction Status Date / Time carbamazepine from Tegretol Allergy Rash/Hives Verified 07/12/24 22:16 divalproex sodium Allergy Swelling Verified 07/12/24 22:16 From Depakote niacin Allergy Rash/Hives Verified 07/12/24 22:16 nifedipine from Procardia Allergy RASH & Verified 07/12/24 22:16 SWELLING diphenhydramine HCl AdvReac MUSCLE Verified 07/12/24 22:16 From Benadryl CRAMPS gabapentin from Neurontin AdvReac MAKES HER Verified 07/12/24 22:16 FEEL DRUNK pregabalin from Lyrica AdvReac MAKES HER Verified 07/12/24 22:16 FEEL DRUNK tramadol HCl from Ultram AdvReac SEIZURES Verified 07/12/24 22:16 seizure meds Allergy Rash/Hives Uncoded 07/12/24 22:16 VITAMIN B COMPLEX Allergy Rash/Hives Uncoded 07/12/24 22:16 Vital Signs Temp 97.7 F 07/13/24 09:00 Pulse 118 H 07/13/24 09:00 Resp 16 07/13/24 09:00 BP 116/84 07/13/24 09:00 Pulse Ox 98 07/13/24 09:00 FiO2 Intake & Output 07/12/24 07/13/24 07/13/24 18:59 06:59 18:59 Weight 59.024 kg Laboratory Last Values WBC 8.28 10*3/uL (4.50-10.00) 07/12/24 23:00 RBC 4.16 10*6/uL (4.10-5.20) 07/12/24 23:00 Hgb 12.5 g/dL (12.0-15.0) 07/12/24 23:00 Hct 37.0 % (37.2-46.3) L 07/12/24 23:00 MCV 88.9 fL (80.0-97.0) 07/12/24 23:00 MCH 30.0 pg (27.0-32.0) 07/12/24 23:00 MCHC 33.8 g/dL (32.0-37.0) 07/12/24 23:00 Plt Count 228 10*3/uL (140-440) 07/12/24 23:00 MPV 10.6 fL (9.5-12.2) 07/12/24 23:00 Immature Gran % (Auto) 0.2 % 07/12/24 23:00 Neutrophils % 64.7 % 07/12/24 23:00 Lymphocytes % 28.4 % 07/12/24 23:00 Monocytes % 5.8 % 07/12/24 23:00 Eosinophils % 0.5 % 07/12/24 23: Basophils % 0.4 % 07/12/24 23:00 Immature Gran # 0.02 10*3/uL (0.00-0.04) 07/12/24 23:00 Neutrophils # 5.36 10*3/uL (1.80-7.70) 07/12/24 23:00 Lymphocytes # 2.35 10*3/uL (0.90-5.00) 07/12/24 23:00 Monocytes # 0.48 10*3/uL (0.20-1.00) 07/12/24 23:00 Eosinophils # 0.04 10*3/uL (0.04-0.35) 07/12/24 23:00 Basophils # 0.03 10*3/uL (0.00-0.10) 07/12/24 23:00 Sodium 138 mmol/L (137-145) 07/12/24 23:00 Potassium 3.2 mmol/L (3.5-5.1) L 07/12/24 23:00 Chloride 100 mmol/L (98-107) 07/12/24 23:00 Carbon Dioxide 29 mmol/L (22-30) 07/12/24 23:00 Anion Gap 9 mmol/L 07/12/24 23:00 BUN 4 mg/dL (7-17) L 07/12/24 23:00 Creatinine 0.66 mg/dL (0.52-1.04) 07/12/24 23:00 Est GFR (CKD-EPI)AfAm >90 (>60 ml/min/1.73 sqM) 07/12/24 23: Est GFR (CKD-EPI)NonAf >90 (>60 ml/min/1.73 sqM) 07/12/24 23:00 Glucose 82 mg/dL (74-99) 07/12/24 23:00 Calcium 10.1 mg/dL (8.4-10.2) 07/12/24 23:00 Total Bilirubin 0.5 mg/dL (0.2-1.3) 07/12/24 23:00 AST 26 U/L (14-36) 07/12/24 23:00 ALT 21 U/L (4-34) 07/12/24 23:00 Alkaline Phosphatase 49 U/L (38-126) 07/12/24 23:00 Total Protein 7.2 g/dL (6.3-8.2) 07/12/24 23:00 Albumin 4.4 g/dL (3.5-5.0) 07/12/24 23:00 TSH 2.600 mIU/L (0.465-4.680) 07/12/24 23:00 Urine Color Colorless 07/12/24: Urine Appearance Clear (Clear) 07/12/24: Urine pH 6.0 (5.0-8.0) 07/12/24:59 Ur Specific [place] 1.002 (1.001-1.035) 07/12/24:59 Urine Protein Negative (Negative) 07/12/24:59 Urine Glucose (UA) Negative (Negative) 07/12/24: Urine Ketones Negative (Negative) 07/12/24: Urine Blood Negative (Negative) 07/12/24: Urine Nitrite Negative (Negative) 07/12/24:59 Urine Bilirubin Negative (Negative) 07/12/24:59 Urine Urobilinogen <2.0 mg/dL (<2.0) 07/12/24:59 Ur Leukocyte Esterase Negative (Negative) 07/12/24:59 Urine HCG, Qual Not Detected (Not Detectd) 07/12/24 22:59 Urine Opiates Screen Not Detected (NotDetected) 07/12/24 22:59 Ur Oxycodone Screen Not Detected (NotDetected) 07/12/24 22:59 Urine Methadone Screen Detected (NotDetected) H 07/12/24:59 Ur Barbiturates Screen Not Detected (NotDetected) 07/12/24 22:59 U Tricyclic Antidepress Not Detected (NotDetected) 07/12/24 22:59 Ur Phencyclidine Scrn Not Detected (NotDetected) 07/12/24 22:59 Ur Amphetamines Screen Not Detected (NotDetected) 07/12/24 22:59 U Methamphetamines Scrn Not Detected (NotDetected) 07/12/24 22:59 U Benzodiazepines Scrn Not Detected (NotDetected) 07/12/24 22:59 Urine Cocaine Screen Not Detected (NotDetected) 07/12/24 22:59 U Marijuana (THC) Screen Detected (NotDetected) H 07/12/24 22:59 Influenza Type A (PCR) Not Detected (Not Detectd) 07/12/24 23:00 Influenza Type B (PCR) Not Detected (Not Detectd) 07/12/24 23:00 RSV (PCR) Not Detected (Not Detectd) 07/12/24 23:00 SARS-CoV-2 (PCR) Not Detected (Not Detectd) 07/12/24 23:00 07/13/24 12:40 IDENTIFYING DATA: Patient is a 43-year-old female, unemployed and living with children CHIEF COMPLAINT: Altered mental status HPI: Patient presented to the hospital with AMS. Patient's ex- had concerns after patient was driving with her son and became disoriented and confused. She reportedly had taken nonprescribed OxyContin. EPS notes states, "Patient was brought in by ex- for evaluation, ex- filled out petition. Petition states "incoherent speech, forgetting the decade, driving intoxicated, forgetting what is actively happening". Upon assessment pt is disheveled, malodorous, does not make eye contact and has hair in front of her face. Patient responds in one word responses, is guarded and is fidgeting with her fingers and wristband. When asked if pt is depressed pt states "yep" Maintenance Associate asked pt to rate depression 0-10, pt states "i don't even know". Pt states his plan is to "take pills, drive erradic, more of a xiao". Pt states she has prev suicide attempt by overdosing and cutting. Pt denies HI,A/VH. Pt is vague. Pt e x- states pt has become irrational, has history of self- mutilation, and borderline personality, bipolar. As science writer left pt after assessment, pt threw down tv remote and yelled "just kill me, just go away". Pt reports not sleeping but then states she sleeps fine. "I haven't been sleeping only a few minutes" Pt responds to most questions with "yes.. no .. I don't know". Pt has hx of addicti on and reports taking only methadone daily. Pt could not verify dose but states she goes to [place] daily for the medication. Pt is closed with [facility], last seen 06/22/22. Pt reports previous admits at [facility], unable to determine when last IP was. Pt made multiple statements to COIN COLLECTOR of wanting to , wanting RN to slice her head open or pull brains out. Pt also smashed head on wall in ER bathroom" Patient seen and evaluated on the unit and was agreeable with speaking to science writer in office. She was agitated, restless and disorganized. She states she has not been sleeping for some time after seeing a picture of Regis in her pillow. She also reports poor appetite and paranoia, feeling as though people are trying to hurt her. The petition written by her ex- was discussed to which patient denied everything written, stating that her ex wrote these things due to him being afraid for their children. She states she did not steal her uncle's medications and instead expressed this is more of a prank. She reports suicidal ideations. Patient denies any homicidal ideations intent or plan. At this time patient denies any auditory or visual hallucinations. Patient denies any flight of ideas racing thoughts and increased in goal directed behavior. Patient admits to using THC "whenever", vaping daily, no alcohol and has been opiate free for "a while". Upon term inating the interview, patient expresses to science writer to "just kill me", expressing no desires to start medications other than methadone. PAST PSYCHIATRIC HISTORY: Patient has a history of MDD, opioid use disorder, stimulant use disorder. Patient denies being on any psychiatric medications. Patient denies any previous psychiatric hospitalizations however per chart review patient was last admitted at this facility back in October 2016. Patient denies any psychiatric outpatient follow-up. Patient denies any history of suicide attempts in the past. PMH: as per ER note ALLERGIES: as per EMR SUBSTANCE USE HISTORY: As per HPI FAMILY PSYCHIATRIC/SUBSTANCE USE HISTORY: She states her dad has some form of mental illness and has attempted suicide in the past. SOCIAL HISTORY: Patient is and has 4 children whom she lives with. She completed some college however is currently unemployed, financially supporting herself through the money she received from her father's passing. MENTAL STATUS EXAM: General Appearance: Patient appears to be stated age is alert, directable, and attempts to cooperate. Patient appears to have poor hygiene and grooming. Behavior: Patient appeared restless, irritable Speech: Patient's speech is fluent and nonpressured. Mood/Affect: Patient reports their mood is depressed, affect is congruent and constricted. Suicidality/Homicidality: Patient denies having any homicidal ideation intent or plan. She reports suicidal ideations Perceptions: Patient denies any visual hallucinations and denies any auditory hallucinations Though content/process: Patient expressed paranoia, disorganization in thoughts Memory and concentration: AOX3, grossly intact for the purposes of this session. Can spell "WORLD" backwards Judgment and insight: Poor STRENGTHS/WEAKNESSES: strength is that patient is resilient. Weakness is that patient has poor judgment/insight and is impulsive INTELLECT: Average IMPRESSIONS: Psychosis, unspecified Rule out schizophrenia versus schizoaffective disorder versus substance-induced psychotic disorder Opioid use disorder, in sustained remission Nicotine dependence PLAN: -Patient is admitted under involuntary status to MHU for stabilization of psychiatric symptoms and safety. Patient has not signed adult voluntary form and and is placed in patient's chart. A second certification was completed and along with petition will be filed for court. -Medications : Start Seroquel 100 mg at bedtime for psychosis/insomnia - Ativan and Haldol PRN for agitation/aggression -Patient was counselled on substance abuse and desired to cut back on use -Patient was informed of the risks, benefits and side effects of the medication and patient verbally consented to taking the medications. Patient did not sign med consent form and was placed in chart. Patient offered and declined patient education sheet for psychotropic medications. -Internal Medicine consult to perform medical evaluation and physical. -NRT -nicotine patch -SW on board for discharge planning. Encourage patient to participate in groups to work on coping skills. Will await deferral and court date.
--- NOTE | 2024-07-13 18:26 | P.CONS ---
History of Present Illness - Reason for Consult Consult date: 07/13/24 Medical management - Chief Complaint Altered mental status - History of Present Illness 43-year-old woman who is here to have evaluation for altered mental status. The patient states that she is not exactly sure what happened earlier but she was brought here by her ex-. The patient's ex- is present and states that the patient had been driving with her son, when she reportedly became disoriented and confused. They stop the vehicle and the patient's came to the scene and after talking with the patient states that she wanted to come here to have evaluation. It was reported that the patient had taken an OxyContin that she had taken from someone she has not prescribed that medication. The patient reportedly on methadone for opioid addiction. When I interviewed the patient she does not have any physical complaints, no pain, no dyspnea, no nausea or vomiting. She is disoriented to date. Patient admitted to the mental health unit for psychosis Review of Systems ROS unobtainable: due to mental status Past Medical History Past Medical History: Mitral Valve Prolapse (MVP), Seizure Disorder, Thyroid Disorder Additional Past Medical History / Comment(s): HX KIDNEY STONES, ABD HERNIA, NARCOLEPSY, HX SEIZURE X 1 2012, endometriosis, History of Any Multi-Drug Resistant Organisms: None Reported Past Surgical History: Section, Cholecystectomy, Tubal Ligation Additional Past Surgical History / Comment(s): TL X 2, uterine ablation Past Anesthesia/Blood Transfusion Reactions: No Reported Reaction Smoking Status: Current every day smoker, Vaper - Past Family History Father Additional Family Medical History / Comment(s): BACK PROBLEMS,DEPRESSION- COMMITTED SUICIDE @ AGE 53 Mother Family Medical History: Osteoarthritis (OA) Additional Family Medical History / Comment(s): COLITIS Medications and Allergies Home Medications Medication Instructions Recorded Confirmed Type traZODone HCL 50 mg PO HS 10/11/20 01/02/24 History Methadone HCl [Methadone Intensol] 80 mg PO DAILY 05/18/21 01/02/24 History Dextroamphetamine/Amphetamine 20 mg PO BID 06/21/23 01/02/24 History [Adderall] Allergies Allergy/AdvReac Type Severity Reaction Status Date / Time carbamazepine [From Tegretol] Allergy Rash/Hives Verified 07/12/24 22:16 divalproex sodium Allergy Swelling Verified 07/12/24 22:16 [From Depakote] niacin Allergy Rash/Hives Verified 07/12/24 22:16 nifedipine [From Procardia] Allergy RASH & Verified 07/12/24 22:16 SWELLING diphenhydramine HCl AdvReac MUSCLE Verified 07/12/24 22:16 [From Benadryl] CRAMPS gabapentin [From Neurontin] AdvReac MAKES HER Verified 07/12/24 22:16 FEEL DRUNK pregabalin [From Lyrica] AdvReac MAKES HER Verified 07/12/24 22:16 FEEL DRUNK tramadol HCl [From Ultram] AdvReac SEIZURES Verified 07/12/24 22:16 seizure meds Allergy Rash/Hives Uncoded 07/12/24 22:16 VITAMIN B COMPLEX Allergy Rash/Hives Uncoded 07/12/24 22:16 Physical Exam Vitals: Vital Signs Temp Pulse Pulse Resp BP BP Pulse Ox 07/13/24 03:31 97.8 F 65 16 130/83 99 07/12/24 22:12 99.1 F 77 18 132/87 98 Intake and Output 07/12/24 07/13/24 07/13/24 22:59 06:59 14:59 Other: Weight 63.503 kg 59.024 kg General appearance: alert, in no apparent distress Head exam: Present: atraumatic, normocephalic Eye exam: Present: normal appearance. Absent: scleral icterus, conjunctival injection Neck exam: Present: normal inspection Respiratory exam: Present: normal lung sounds bilaterally. Absent: respiratory distress, wheezes, rales, rhonchi, stridor, accessory muscle use Cardiovascular Exam: Present: regular rate, normal rhythm, normal heart sounds. Absent: systolic murmur, diastolic murmur, rubs, gallop GI/Abdominal exam: Present: soft. Absent: distended, tenderness, guarding, rebound, rigid Extremities exam: Present: normal inspection, normal capillary refill. Absent: pedal edema, calf tenderness Back exam: Present: normal inspection. Absent: CVA tenderness (R), CVA tenderness (L) Neurological exam: Present: alert. Absent: oriented X3 (Patient is alert to person, recognizes she is in the hospital, disoriented to date), motor sensory deficit Skin exam: Present: warm, dry, intact, normal color. Absent: rash Results CBC & Chem 7: 07/12/24 23:00 07/12/24 23:00 Labs: Abnormal Lab Results - Last 24 Hours (Table) 07/12/24 07/12/24 07/12/24 Range/Units 22:59 23:00 23:00 Hct 37.0 L (37.2-46.3) % Potassium 3.2 L (3.5-5.1) mmol/L BUN 4 L (7-17) mg/dL Urine Methadone Screen Detected H (NotDetected) U Marijuana (THC) Screen Detected H (NotDetected) Assessment and Plan Assessment: 1. Altered mental status -Psychosis - Patient is admitted to mental health unit; recommended to be placed on Seroquel 100 mg nightly for insomnia and psychosis; Ativan and Haldol as needed for agitation and aggressive behavior 2. Tobacco abuse; patient has been placed on nicotine patch 3. Hypokalemia; will supplement with oral potassium; repeat electrolytes 4. Chronic pain/narcotic dependence; patient reports she is on methadone 80 mg daily; this needs to be verified with the pharmacy 5. Insomnia/sleep disorder; takes trazodone 50 mg nightly DVT prophylaxis; ambulation CODE STATUS; full code
[2024-07-13] MEDS: QUEtiapine 100 MG TAB PO SCH (21:03)
[2024-07-14] MEDS: IBUPROFEN 600 MG TAB PO PRN (08:02)
[2024-07-14] MEDS: METHADONE 10 MG TAB PO SCH (10:16)
--- NOTE | 2024-07-14 12:13 | P.PN ---
Progress Note - Text Progress Note Date: 07/14/24 Interval History: Patient was seen wandering the hallways and was directable and agreeable to sp francesk with marine underwriter in the office. She appeared more bright in affect, was resumed on her methadone today after confirmation of the dose from [place]. She continues to express confusion, was A&Ox3. She states being unaware of what she needs to do while here and this discussed including attending groups, speaking to marine underwriter and taking medications. She is adamant that she did not take her uncles pills, stating that her uncle told her to say this is a prank, only reporting taking methadone at this time to which she states she has been on for 5 years. She reports restlessness with Seroquel and states she has previously been restless on this medication in addition to Zyprexa. She has tried several psychotropic medications previously including Abilify, Risperdal, Geodon however was open to starting Thorazine tonight. At this time patient denies any suicidal or homicidal ideations, intent or plan. Patient denies any auditory, visual hallucinations and denies any paranoia or delusions. Patient has been compliant with meds. Mental Status Exam: General Appearance: Patient appears to be stated age is alert, directable, and cooperative. She is dressed in home clothes Behavior: Patient is calmly seated without any agitated behavior. Speech: Patient's speech is fluent and nonpressured. Mood/Affect: Mood is improving mildly, affect is congruent and constricted. Suicidality/Homicidality: Patient denies having any suicidal or homicidal ideation intent or plan. Perceptions: Patient denies any visual hallucinations and denies any auditory hallucinations Though content/process: There is no evidence of any delusional thought content and thought process is linear, no disorganization exhibited today. Memory and concentration: AOX3, grossly intact for the purposes of this session Judgment and insight: Improving mildly Assessment Psychosis, unspecified Rule out schizophrenia versus schizoaffective disorder Opiate use disorder, in sustained remission Nicotine dependence Plan: -Patient continues to meet criteria for inpatient psychiatric admission for symptom stabilization and safety. Patient has not signed adult voluntary form and medication consent and was placed in patient's chart. -Medications: Discontinue Seroquel due to adverse effects and start Thorazine 50 mg at bedtime for insomnia/psychosis. Patient was resumed on methadone 90 mg daily for opioid maintenance -When necessary Ativan and Haldol for agitation/aggression. -Labs: UDS positive for methadone and THC only -NRT - nicotine patch -SW on board for discharge planning. Encouraged the patient to participate in milieu. Currently awaiting deferral with chief meteorologist and court date.
[2024-07-14] MEDS: chlorproMAZINE 25 MG TAB PO SCH (20:13)
--- NOTE | 2024-07-15 12:43 | P.PN ---
Progress Note - Text Progress Note Date: 07/15/24 Interval History: Patient was seen wandering the hallways and was directable and agreeable to sp selene with proposal lead writer in the office. She reports feeling more clear today, exhibiting less confusion and reporting sleeping better with the change in medications. She states her mom will be bringing in more clothes today. The involuntary process was discussed including the potential to sign a deferral to which patient was in agreement with this as she has been compliant with medications and wished to follow-up with [facility] upon discharge. At this time patient denies any suicidal or homicidal ideations, intent or plan. Patient denies any auditory, visual hallucinations and denies any paranoia or delusions. Patient denies any side effects from the medications and has been compliant with meds. Mental Status Exam: General Appearance: Patient appears to be stated age is alert, directable, and cooperative. She is stressed at home close Behavior: Patient is calmly seated without any agitated behavior. Speech: Patient's speech is fluent and nonpressured. Mood/Affect: Mood is improving mildly, affect is congruent and reactive. Suicidality/Homicidality: Patient denies having any suicidal or homicidal ideation intent or plan. Perceptions: Patient denies any visual hallucinations and denies any auditory hallucinations Though content/process: There is no evidence of any delusional thought content and thought process is linear and goal-directed. Memory and concentration: AOX3, grossly intact for the purposes of this session Judgment and insight: Improving mildly Assessment Psychosis, unspecified Rule out schizoaffective disorder Opiate use disorder, in sustained remission Nicotine dependence Plan: -Patient continues to meet criteria for inpatient psychiatric admission for symptom stabilization and safety. Patient has not signed adult voluntary form and medication consent and was placed in patient's chart. -Medications: Continue Thorazine 25 mg at bedtime for insomnia/psychosis -When necessary Ativan and Haldol for agitation/aggression. -Labs: Reviewed -NRT - nicotine patch -SW on board for discharge planning. Encouraged the patient to participate in milieu. Currently awaiting deferral with trial attorney and court date. Anticipate discharge back home tomorrow after deferral meeting with communications executive
[2024-07-16 07:59] VITALS: BP 134/87; PULSE 119; RESP 20; TEMP 97.5
--- NOTE | 2024-07-16 11:37 | P.DS ---
Providers Date of admission: 07/13/24 02:49 Expected date of discharge: 07/16/24 Attending physician: Marisol Mcclendon MD Consults: 07/13/24 03:06 Consult Physician Routine Consulting Provider: [facility] Hospitalists Consult Reason/Comments: H & P, Coverage for Dr. Aguilar Do you want consulting provider notified?: Yes, Notify in am Primary care physician: Aretha Self - Discharge Diagnosis(es) (1) Unspecified psychosis Current Visit: Yes Status: Acute Priority: High (2) Opioid use disorder Current Visit: Yes Status: Chronic Priority: Low (3) Nicotine dependence Current Visit: Yes Status: Acute Priority: Low Hospital Course: Admission HPI: Admission note was completed by greeting card writer" Patient presented to the hospital with AMS. Patient's ex- had concerns after patient was driving with her son and became disoriented and confused. She reportedly had taken nonprescribed OxyContin. EPS notes states, "Patient was brought in by ex- for evaluation, ex- filled out petition. Petition states "incoherent speech, forgetting the decade, driving intoxicated, forgetting what is actively happening". Upon assessment pt is disheveled, malodorous, does not make eye contact and has hair in front of her face. Patient responds in one word responses, is guarded and is fidgeting with her fingers and wristband. When asked if pt is depressed pt states "yep" Homeland Security Program Specialist asked pt to rate depression 0- 10, pt states "i don't even know". Pt states his plan is to "take pills, drive erradic, more of a xiao". Pt states she has prev suicide attempt by overdosing and cutting. Pt denies HI,A/VH. Pt is vague. Pt ex- states pt has become irrational, has history of self- mutilation, and borderline personality, bipolar. As greeting card writer left pt after assessment, pt threw down tv remote and yelled "just kill me, just go away". Pt reports not sleeping but then states she sleeps fine. "I haven't been sleeping only a few minutes" Pt responds to most questions with "yes.. no .. I don't know". Pt has hx of addiction and reports taking only methadone daily. Pt could not verify dose but states she goes to [facility] daily for the medication. Pt is closed with [facility], last seen 06/22/22. Pt reports previous admits at [facility], unable to determine when last IP was. Pt made multiple statements to SCRAP WORKER of wanting to , wanting RN to slice her head open or pull brains out. Pt also smashed head on wall in ER bathroom" Patient seen and evaluated on the unit and was agreeable with speaking to greeting card writer in office. She was agitated, restless and disorganized. She states she has not been sleeping for some time after seeing a picture of Regis in her pillow. She also reports poor appetite and paranoia, feeling as though people are trying to hurt her. The petition written by her ex- was discussed to which patient denied everything written, stating that her ex wrote these things due to him being afraid for their children. She states she did not steal her uncle's medications and instead expressed this is more of a prank. She reports suicidal ideations. Patient denies any homicidal ideations intent or plan. At this time patient denies any auditory or visual hallucinations. Patient denies any flight of ideas racing thoughts and increased in goal directed behavior. Patient admits to using THC "whenever", vaping daily, no alcohol and has been opiate free for "a while". Upon terminating the interview, patient expresses to greeting card writer to "just kill me", expressing no desires to start medications other than methadone." Hospital course: Upon admission to the unit patient was admitted involuntarily on a petition and certificate and a second certificate was completed and faxed to the courts. Patient ended up signing a deferral with the [place] attorney and agreeing to treatment.. Patient got along well with other patients on the unit and followed unit protocol. Patient was compliant with the medications and denied any side effects throughout hospital course. Patient was started on Seroquel 100 mg however patient was reporting adverse effects and this was thus discontinued and she was started instead on Thorazine 25 mg at bedtime for psychosis/insomnia. Patient spoke of her stressors and engaged in therapy both group and individual. Patient was also seen by medical team for history and physical exam. Throughout the course of the hospitalization patient gradually improved with regards to mood, anxiety, sleep and returned back to their baseline level of functioning. On the day of discharge patient denied any suicidal or homicidal ideations intent or plan denied any auditory or visual hallucinations. The patient denied any access to guns or weapons. Patient denied any paranoia and did not endorse any delusions. Patient does not have a significant history of substance abuse and was counseled on abstaining from all substances including alcohol and marijuana. Patient was also counseled on the medications and need for regular compliance and was encouraged to follow-up with their outpatient appointment for mental health and also for primary care. Prior to discharge a family meeting will be arranged by healthcare social worker to answer any questions and ensure safety upon discharge including making sure that guns/weapons are either removed from the home or locked away. Patient to be discharged back home with family and will follow-up with [facility]. Mental status exam: General Appearance: Patient appears to be stated age is alert, pleasant, and cooperative. Patient is in no acute distress and has improved hygiene and grooming Behavior: Patient is calmly seated without any agitated behavior. Speech: Patient's speech is fluent and nonpressured. Mood/Affect: Patient reports their mood is "better", affect is congruent and euthymic. Suicidality/Homicidality: Patient denies having any suicidal or homicidal ideation intent or plan. Perceptions: Patient denies any auditory or visual hallucinations. Though content/process: There is no evidence of any delusional thought content and thought process is linear and goal-directed. More future oriented Memory and concentration: AOX3, grossly intact for the purposes of this session. Can spell "WORLD" backwards correctly. Judgment and insight: Good Impression: Psychosis, unspecified Rule out schizoaffective disorder Opioid use disorder, in sustained remission Nicotine dependence Plan: -Continue with discharge today as patient has improved and stabilized psychi atrically and is not currently an imminent threat to themself and/or others. -Continue medications: Thorazine 25 mg at bedtime -Patient was counseled on the need for medication compliance and appropriate follow-up at mental health and also primary care for medical issues. Patient verbalized understanding and agreed. -Social work to help coordinate patients discharge today arrange for and conduct family meeting to ensure safety upon discharge and answer any questions/concerns. also to ensure safe home environment that guns/weapons are either removed from the home or locked away. Social work also to arrange for patients follow up appointments with [facility] for psychiatric care along with follow up with primary care provider. -Patient counseled on abstaining from recreational drugs and marijuana and alcohol. Was informed/educated on the adverse effects on their physical and mental health. Patient verbally agreed and understood. -Patient was instructed to return to the hospital or seek immediate medical care if their psychiatric or medical symptoms do worsen or reoccur. Abnormal Labs 07/12/24 07/12/24 07/12/24 22:59 23:00 23:00 Hct 37.0 L Potassium 3.2 L BUN 4 L Urine Methadone Screen Detected H U Marijuana (THC) Screen Detected H Allergies Allergy/AdvReac Type Severity Reaction Status Date / Time carbamazepine [From Tegretol] Allergy Rash/Hives Verified 07/12/24 22:16 divalproex sodium Allergy Swelling Verified 07/12/24 22:16 [From Depakote] niacin Allergy Rash/Hives Verified 07/12/24 22:16 nifedipine [From Procardia] Allergy RASH & Verified 07/12/24 22:16 SWELLING diphenhydramine HCl AdvReac MUSCLE Verified 07/12/24 22:16 [From Benadryl] CRAMPS gabapentin [From Neurontin] AdvReac MAKES HER Verified 07/12/24 22:16 FEEL DRUNK pregabalin [From Lyrica] AdvReac MAKES HER Verified 07/12/24 22:16 FEEL DRUNK tramadol HCl [From Ultram] AdvReac SEIZURES Verified 07/12/24 22:16 seizure meds Allergy Rash/Hives Uncoded 07/12/24 22:16 VITAMIN B COMPLEX Allergy Rash/Hives Uncoded 07/12/24 22:16 Vital Signs Temp 97.5 F L 07/16/24 07:58 Pulse 119 H 07/16/24 07:58 Resp 20 07/16/24 07:58 BP 134/87 07/16/24 07:58 Pulse Ox 100 07/16/24 07:58 FiO2 Patient Condition at Discharge: Stable Plan - Discharge Summary Discharge Rx Participant: No New Discharge Prescriptions: New Methadone [Dolophine] 90 mg PO DAILY tab chlorproMAZINE [Thorazine] 25 mg PO HS 30 Days #30 tab Continue Methadone HCl [Methadone Intensol] 92 mg PO DAILY Discontinued traZODone HCL 50 mg PO HS Dextroamphetamine/Amphetamine [Adderall] 20 mg PO BID Discharge Medication List Methadone HCl [Methadone Intensol] 92 mg PO DAILY 05/18/21 [History] Methadone [Dolophine] 90 mg PO DAILY tab 07/16/24 [Rx] chlorproMAZINE [Thorazine] 25 mg PO HS 30 Days #30 tab 07/16/24 [Rx] Follow up Appointment(s)/Referral(s): [place] [facility] [Outside] - 07/18/24 10:00 am (with Rae) Aretha Self DO [Primary Care Provider] - 1 Week Patient Instructions/Handouts: Brief Psychotic Disorder (DC) Activity/Diet/Wound Care/Special Instructions: Avoid the use of street drugs and alcohol. Take all medications as prescribed. When you are in need of refills on your medications, please contact your medical provider and/or outpatient psychiatrist/provider to have this done. Please go to your scheduled outpatient appointment for aftercare treatment. If symptoms return or become worse, call the crisis line at and/or go to the nearest emergency room for evaluation. National Suicide Hotline [facility] [facility] confidentiality statement: "The information contained in this communication, including attachments, is confidential, may be privileged, and is intended only for the use of the named recipient(s). Unauthorized use, disclosure, forwarding or copying is strictly prohibited and may be unlawful. If you have received this communication in error, please notify me IMMEDIATELY at the phone number or pager listed above. Discharge Disposition: HOME SELF-CARE
== END 2024-07-16 14:25 | disposition home or self-care (01) | DRG 750 ==
LOC: EC 21:26 → 3MHU 07-13 02:49
PROVIDERS: ADMIT Psychiatry & Neurology Psychiatry; ATTEND Psychiatry & Neurology Psychiatry
DX: F29 Unspecified psychosis not due to a substance or known physiological condition (principal); F11.20 Opioid dependence, uncomplicated; F15.10 Other stimulant abuse, uncomplicated; G47.419 Narcolepsy without cataplexy; G40.909 Epilepsy, unspecified, not intractable, without status epilepticus; E87.6 Hypokalemia; F60.3 Borderline personality disorder; F17.290 Nicotine dependence, other tobacco product, uncomplicated; F41.9 Anxiety disorder, unspecified; G47.00 Insomnia, unspecified; G89.29 Other chronic pain; E07.9 Disorder of thyroid, unspecified; I34.1 Nonrheumatic mitral (valve) prolapse; Z79.899 Other long term (current) drug therapy; Z91.51 Personal history of suicidal behavior; Z56.0 Unemployment, unspecified; Z88.8 Allergy status to other drugs, medicaments and biological substances; Z71.51 Drug abuse counseling and surveillance of drug abuser
CPT/HCPCS: 36415; 70450; 80053; 80306; 81003; 81025; 82075; 83036; 84443; 85025; 87636; 99285

== ENCOUNTER 2024-09-20 15:58 | Emergency (ER) | payer OTHER ==
[2024-09-20 16:14] VITALS: TEMP 99.1
[2024-09-20 16:43] LABS: Bilirubin,Urine Negative (Negative); Blood,Urine Negative (Negative); Color,Urine Colorless; Glucose,Urine (UA) Negative (Negative); Ketones,Urine Negative (Negative); Leukocyte Esterase,Urine Negative (Negative); Nitrite,Urine Negative (Negative); PH, Urine 6.5 (5.0-8.0); Protein,Urine Negative (Negative); Specific Gravity,Urine 1.001 (1.001-1.035); Urobilinogen,Urine <2.0 mg/dL (<2.0)
--- NOTE | 2024-09-20 16:45 | ED ---
General Adult HPI - General Chief complaint: Chest Pain Stated complaint: Dizziness/Irrg Heartrate Time Seen by Provider: 09/20/24 16:15 Source: patient, RN notes reviewed Mode of arrival: ambulatory Limitations: no limitations - History of Present Illness Initial comments: 44-year-old female presents emergency department for complaint of lightheadedness, palpitations. Patient states that she weaned herself off of methadone. Patient states she was on 125 states that she went down to 65 in the hide go back to 90 states that she was on 20 for approximately a week and has stopped. Patient states she was going to take her hide she did go drop today but did not take her dose. Patient dates she does not want to be on this. Patient states that she was using marijuana for her anxiety but states that she does not need this anymore either. Patient denies pain currently she states she has some low back pain which is chronic she states when she stands up she gets very lightheaded no syncopal episodes. Patient has mitral valve prolapse. - Related Data Home Medications Medication Instructions Recorded Confirmed Methadone HCl [Methadone Intensol] 92 mg PO DAILY 05/18/21 07/14/24 Previous Rx's Medication Instructions Recorded Methadone [Dolophine] 90 mg PO DAILY tab 07/16/24 chlorproMAZINE [Thorazine] 25 mg PO HS 30 Days #30 tab 07/16/24 Allergies Allergy/AdvReac Type Severity Reaction Status Date / Time carbamazepine [From Tegretol] Allergy Rash/Hives Verified 09/20/24 16:15 divalproex sodium Allergy Swelling Verified 09/20/24 16:15 [From Depakote] niacin Allergy Rash/Hives Verified 09/20/24 16:15 nifedipine [From Procardia] Allergy RASH & Verified 09/20/24 16:15 SWELLING diphenhydramine HCl AdvReac MUSCLE Verified 09/20/24 16:15 [From Benadryl] CRAMPS gabapentin [From Neurontin] AdvReac MAKES HER Verified 09/20/24 16:15 FEEL DRUNK pregabalin [From Lyrica] AdvReac MAKES HER Verified 09/20/24 16:15 FEEL DRUNK tramadol HCl [From Ultram] AdvReac SEIZURES Verified 09/20/24 16:15 seizure meds Allergy Rash/Hives Uncoded 09/20/24 16:15 VITAMIN B COMPLEX Allergy Rash/Hives Uncoded 07/12/24 22:16 Review of Systems ROS Statement: Those systems with pertinent positive or pertinent negative responses have been documented in the HPI. ROS Other: All systems not noted in ROS Statement are negative. Past Medical History Past Medical History: Mitral Valve Prolapse (MVP), Seizure Disorder, Thyroid Disorder Additional Past Medical History / Comment(s): HX KIDNEY STONES, ABD HERNIA, NARCOLEPSY, HX SEIZURE X 1 2012, endometriosis, History of Any Multi-Drug Resistant Organisms: None Reported Past Surgical History: Section, Cholecystectomy, Tubal Ligation, Uterine Ablation Additional Past Surgical History / Comment(s): TL X 2, uterine ablation Past Anesthesia/Blood Transfusion Reactions: No Reported Reaction Past Psychological History: Anxiety, Depression Smoking Status: Former smoker, Vaper Past Alcohol Use History: None Reported Past Drug Use History: Marijuana, Prescription Drug Abuse - Past Family History Father Additional Family Medical History / Comment(s): BACK PROBLEMS,DEPRESSION- COMMITTED SUICIDE @ AGE 53 Mother Family Medical History: Osteoarthritis (OA) Additional Family Medical History / Comment(s): COLITIS General Exam Limitations: no limitations General appearance: alert, in no apparent distress Head exam: Present: atraumatic, normocephalic, normal inspection Eye exam: Present: normal appearance, PERRL, EOMI. Absent: scleral icterus, conjunctival injection, periorbital swelling ENT exam: Present: normal exam, normal oropharynx, mucous membranes moist Neck exam: Present: normal inspection, full ROM. Absent: tenderness, meningismus, lymphadenopathy Respiratory exam: Present: normal lung sounds bilaterally. Absent: respiratory distress, wheezes, rales, rhonchi, stridor Cardiovascular Exam: Present: regular rate, normal rhythm, normal heart sounds. Absent: systolic murmur, diastolic murmur, rubs, gallop, clicks GI/Abdominal exam: Present: soft, normal bowel sounds. Absent: distended, tenderness, guarding, rebound, rigid Course Vital Signs 09/20/24 09/20/24 09/20/24 16:11 17:14 18:14 Temperature 99.1 F Pulse Rate 113 H 75 80 Respiratory 20 17 17 Rate Blood Pressure 101/65 100/63 123/86 O2 Sat by Pulse 99 100 98 Oximetry 09/20/24 19:14 Temperature Pulse Rate 73 Respiratory 16 Rate Blood Pressure 122/76 O2 Sat by Pulse 100 Oximetry EKG Findings - EKG Comments: EKG Findings:: EKG performed at 16: 35 sinus rhythm rate of 79 AL 127 QRS 102 QT/QTc 364/398 - EKG Results: EKG: interpreted by NANO Medical Decision Making - Medical Decision Making Was pt. sent in by a medical professional or institution (, EVONNE, EXECUTIVE CHAIRMAN, urgent care, hospital, or longterm...) When possible be specific @ -No Did you speak to anyone other than the patient for history (EMS, parent, family, police, friend...)? What history was obtained from this source @ -No Did you review nursing and triage notes (agree or disagree)? Why? @ -I reviewed and agree with nursing and triage notes Were old charts reviewed (outside hosp., previous admission, EMS record, old EKG, old radiological studies, urgent care reports/EKG's, longterm records)? Report findings @ -No old charts were reviewed Differential Diagnosis (chest pain, altered mental status, abdominal pain women, abdominal pain men, vaginal bleeding, weakness, fever, dyspnea, syncope, headache, dizziness, GI bleed, back pain, seizure, CVA, palpatations, mental health, musculoskeletal)? @ -Differential Palpitations Ventricular arrhythmias, atrial arrhythmias, myocardial infarction, anemia, thyrotoxicosis, electrolyte imbalance, hypokalemia, pulmonary embolism, pulmonary disease, drugs, alcohol, anxiety, stress.... This is not meant to be an all-inclusive list. EKG interpreted by me (3pts min.). @ -As above X-rays interpreted by me (1pt min.). @ -None done CT interpreted by me (1pt min.). @ -None done U/S interpreted by me (1pt. min.). @ -None done What testing was considered but not performed or refused? (CT, X-rays, U/S, lab s)? Why? @ -None What meds were considered but not given or refused? Why? @ -None Did you discuss the management of the patient with other professionals (professionals i.e. , EVONNE, EXECUTIVE CHAIRMAN, lab, RT, psych nurse, aids social worker, financial investigator, teacher, customs and immigration officer, continuous pillowcase cutter)? Give summary @ -No Was smoking cessation discussed for >3mins.? @ -No Was critical care preformed (if so, how long)? @ -No Were there social determinants of health that impacted care today? How? (Homelessness, low income, unemployed, alcoholism, drug addiction, transportation, low edu. Level, literacy, decrease access to med. care, residential, rehab)? @ -No Was there de-escalation of care discussed even if they declined (Discuss DNR or withdrawal of care, Hospice)? DNR status @ -No What co-morbidities impacted this encounter? (DM, HTN, Smoking, COPD, CAD, Cancer, CVA, ARF, Chemo, Hep., AIDS, mental health diagnosis, sleep apnea, morbid obesity)? @ -None Was patient admitted / discharged? Hospital course, mention meds given and route, prescriptions, significant lab abnormalities, going to OR and other pertinent info. @ -Discharged patient palpitations, methadone withdrawal. Patient laboratory studies unremarkable heart rate improved after IV fluids. Patient tolerating oral intake. Undiagnosed new problem with uncertain prognosis? @ -No Drug Therapy requiring intensive monitoring for toxicity (Heparin, Nitro, Insulin, Cardizem)? @ -No Were any procedures done? @ -No Diagnosis/symptom? @Palpitations methadone withdrawal Acute, or Chronic, or Acute on Chronic? @ -Acute Uncomplicated (without systemic symptoms) or Complicated (systemic symptoms)? @ -Complicated Side effects of treatment? @ -No Exacerbation, Progression, or Severe Exacerbation? @ -No Poses a threat to life or bodily function? How? (Chest pain, [place], SC, pneumonia, PE, COPD, DKA, ARF, appy, cholecystitis, CVA, Diverticulitis, Homicidal, Suicidal, threat to staff... and all critical care pts) @ -No - Lab Data Result diagrams: 09/20/24 17:17 09/20/24 17:17 Lab Results 09/20/24 09/20/24 09/20/24 Range/Units 16:20 17:17 17:17 WBC 8.95 (4.50-10.00) 10*3/uL RBC 4.17 (4.10-5.20) 10*6/uL Hgb 12.6 (12.0-15.0) g/dL Hct 37.1 L (37.2-46.3) % MCV 89.0 (80.0-97.0) fL MCH 30.2 (27.0-32.0) pg MCHC 34.0 (32.0-37.0) g/dL Plt Count 210 (140-440) 10*3/uL MPV 11.4 (9.5-12.2) fL Immature Gran % (Auto) 0.2 % Neutrophils % 66.6 % Lymphocytes % 27.9 % Monocytes % 4.8 % Eosinophils % 0.2 % Basophils % 0.3 % Immature Gran # 0.02 (0.00-0.04) 10*3/uL Neutrophils # 5.95 (1.80-7.70) 10*3/uL Lymphocytes # 2.50 (0.90-5.00) 10*3/uL Monocytes # 0.43 (0.20-1.00) 10*3/uL Eosinophils # 0.02 L (0.04-0.35) 10*3/uL Basophils # 0.03 (0.00-0.10) 10*3/uL PT 11.0 (10.0-12.5) sec INR 1.0 (<1.2) APTT 22.4 (22.0-30.0) sec Carbon Monoxide, Quant (<10.0) % Sodium (137-145) mmol/L Potassium (3.5-5.1) mmol/L Chloride (98-107) mmol/L Carbon Dioxide (22-30) mmol/L Anion Gap mmol/L BUN (7-17) mg/dL Creatinine (0.52-1.04) mg/dL Est GFR (CKD-EPI)AfAm (>60 ml/min/1.73 sqM) Est GFR (CKD-EPI)NonAf (>60 ml/min/1.73 sqM) Glucose (74-99) mg/dL Calcium (8.4-10.2) mg/dL Magnesium (1.6-2.3) mg/dL Total Bilirubin (0.2-1.3) mg/dL AST (14-36) U/L ALT (4-34) U/L Alkaline Phosphatase (38-126) U/L Troponin I (0.000-0.034) ng/mL Total Protein (6.3-8.2) g/dL Albumin (3.5-5.0) g/dL Urine Color Colorless Urine Appearance Clear (Clear) Urine pH 6.5 (5.0-8.0) Ur Specific [place] 1.001 (1.001-1.035) Urine Protein Negative (Negative) Urine Glucose (UA) Negative (Negative) Urine Ketones Negative (Negative) Urine Blood Negative (Negative) Urine Nitrite Negative (Negative) Urine Bilirubin Negative (Negative) Urine Urobilinogen <2.0 (<2.0) mg/dL Ur Leukocyte Esterase Negative (Negative) 09/20/24 09/20/24 09/20/24 Range/Units 17:17 17:17 18:09 WBC (4.50-10.00) 10*3/uL RBC (4.10-5.20) 10*6/uL Hgb (12.0-15.0) g/dL Hct (37.2-46.3) % MCV (80.0-97.0) fL MCH (27.0-32.0) pg MCHC (32.0-37.0) g/dL Plt Count (140-440) 10*3/uL MPV (9.5-12.2) fL Immature Gran % (Auto) % Neutrophils % % Lymphocytes % % Monocytes % % Eosinophils % % Basophils % % Immature Gran # (0.00-0.04) 10*3/uL Neutrophils # (1.80-7.70) 10*3/uL Lymphocytes # (0.90-5.00) 10*3/uL Monocytes # (0.20-1.00) 10*3/uL Eosinophils # (0.04-0.35) 10*3/uL Basophils # (0.00-0.10) 10*3/uL PT (10.0-12.5) sec INR (<1.2) APTT (22.0-30.0) sec Carbon Monoxide, Quant 2.2 (<10.0) % Sodium 139 (137-145) mmol/L Potassium 3.5 (3.5-5.1) mmol/L Chloride 104 (98-107) mmol/L Carbon Dioxide 24 (22-30) mmol/L Anion Gap 11 mmol/L BUN 4 L (7-17) mg/dL Creatinine 0.51 L (0.52-1.04) mg/dL Est GFR (CKD-EPI)AfAm >90 (>60 ml/min/1.73 sqM) Est GFR (CKD-EPI)NonAf >90 (>60 ml/min/1.73 sqM) Glucose 95 (74-99) mg/dL Calcium 9.9 (8.4-10.2) mg/dL Magnesium 2.0 (1.6-2.3) mg/dL Total Bilirubin 0.4 (0.2-1.3) mg/dL AST 24 (14-36) U/L ALT 18 (4-34) U/L Alkaline Phosphatase 44 (38-126) U/L Troponin I <0.012 (0.000-0.034) ng/mL Total Protein 6.7 (6.3-8.2) g/dL Albumin 4.3 (3.5-5.0) g/dL Urine Color Urine Appearance (Clear) Urine pH (5.0-8.0) Ur Specific [place] (1.001-1.035) Urine Protein (Negative) Urine Glucose (UA) (Negative) Urine Ketones (Negative) Urine Blood (Negative) Urine Nitrite (Negative) Urine Bilirubin (Negative) Urine Urobilinogen (<2.0) mg/dL Ur Leukocyte Esterase (Negative) Disposition Clinical Impression: Palpitations, Methadone withdrawal Disposition: HOME SELF-CARE Condition: Stable Instructions (If sedation given, give patient instructions): Chest Pain (ED) Additional Instructions: Please return to the Emergency Department if symptoms worsen or any other concerns. Is patient prescribed a controlled substance at d/c from ED?: No Referrals: None,Stated [Primary Care Provider] - 1-2 days Time of Disposition: 19:27
[2024-09-20] MEDS: SODIUM CHLORIDE 0.9% 1,000 ML IV SCH (17:14)
[2024-09-20 17:27] LABS: Basophils # (A) 0.03 10*3/uL (0.00-0.10); Basophils % (A) 0.3 %; Eosinophils # (A) 0.02 10*3/uL (0.04-0.35); Eosinophils % (A) 0.2 %; HCT 37.1 % (37.2-46.3); HGB 12.6 g/dL (12.0-15.0); Lymphocytes # (A) 2.50 10*3/uL (0.90-5.00); Lymphocytes % (A) 27.9 %; MCH 30.2 pg (27.0-32.0); MCHC 34.0 g/dL (32.0-37.0); MCV 89.0 fL (80.0-97.0); Monocytes # (A) 0.43 10*3/uL (0.20-1.00); Monocytes % (A) 4.8 %; Neutrophils # (A) 5.95 10*3/uL (1.80-7.70); Neutrophils % (A) 66.6 %; Platelet Count 210 10*3/uL (140-440); RBC 4.17 10*6/uL (4.10-5.20); RDW 12.7 % (11.5-14.5); WBC 8.95 10*3/uL (4.50-10.00)
[2024-09-20 17:37] LABS: ALT 18 U/L (4-34); AST 24 U/L (14-36); African American GFR (CKD) >90 (>60 ml/min/1.73 sqM); Albumin 4.3 g/dL (3.5-5.0); Alkaline Phosphatase 44 U/L (38-126); Anion Gap 11 mmol/L; Blood Urea Nitrogen 4 mg/dL (7-17); Calcium 9.9 mg/dL (8.4-10.2); Carbon Dioxide 24 mmol/L (22-30); Chloride 104 mmol/L (98-107); Glucose 95 mg/dL (74-99); Magnesium 2.0 mg/dL (1.6-2.3); Non-African American GFR(CKD) >90 (>60 ml/min/1.73 sqM); Potassium 3.5 mmol/L (3.5-5.1); Sodium 139 mmol/L (137-145); Total Protein 6.7 g/dL (6.3-8.2)
[2024-09-20 17:49] LABS: INR 1.0 (<1.2); Partial Thromboplastin Time 22.4 sec (22.0-30.0); Prothrombin Time 11.0 sec (10.0-12.5)
[2024-09-20 19:20] VITALS: BP 122/76; PULSE 73; RESP 16
== END 2024-09-20 20:02 | disposition home or self-care (01) ==
LOC: EC 15:58
DX: F11.23 Opioid dependence with withdrawal (principal); R00.2 Palpitations; F17.290 Nicotine dependence, other tobacco product, uncomplicated; Z88.6 Allergy status to analgesic agent; Z88.1 Allergy status to other antibiotic agents; Z88.8 Allergy status to other drugs, medicaments and biological substances
CPT/HCPCS: 36415; 80053; 81003; 82375; 83735; 84484; 85025; 85610; 85730; 93005; 96360; 99285